=== PATIENT | female | born 1960 | race Caucasian/White ===

== ENCOUNTER 2021-12-22 10:30 | Day surgery (SDC) | payer OTHER, SELFPAY ==
[2021-12-22] VITALS (23 sets, daily range): BP systolic 86–151; BP diastolic 46–96; PULSE 60–89; RESP 16–22; TEMP 35.2–37.2; O2SAT 91–97; BMI 45.1
[2021-12-22] MEDS: LACTATED RINGERS 1000 ML 1,000 ML 100 ML IV (11:00)
[2021-12-22] MEDS: OXYCODONE (CR) 10 MG TAB.ER.12H PO (11:15)
[2021-12-22] MEDS: CELECOXIB 200 MG CAPSULE PO ×2 (11:15→21:14)
[2021-12-22] MEDS: ACETAMINOPHEN 500 MG TABLET 1000 MG PO ×3 (11:15→23:53)
[2021-12-22] MEDS: fentaNYL 100 MCG/2 ML inj IVP (11:45)
[2021-12-22] MEDS: MIDAZOLAM HCL 1 MG/ML inj IVP (11:45)
--- NOTE | 2021-12-22 11:47 | W.PM.NB ---
Nerve Block Nerve Block Time Seen by Provider: 11:48 Date Seen: 12/22/21 Type of block requested by surgeon for post-operative analgesia: adductor canal Side: left Time out performed: Yes Verification of patient name: Yes Verification of date of : Yes Site marking: site marked Name of person performing procedure: Getachew Continuous monitoring Was continuous monitoring of O2 sat, B/P, senior program analyst, recorded every 15 minutes?: Yes Procedure Checklist: sterile prep, needles and gloves Ultrasound guided. Images saved: Yes Medications given in 5ml increments after negative aspiration: Ropivicaine %: 0.5 mL: 20 Needle gauge: 20 Decadron (mg): 10 Precedex (mcg): 25 Patient tolerated procedure well: Yes Additional comments: Needle noted adjacent to nerve Block Charges Block Charge (with Pro Fee): Femoral Nerve Use of Ultrasound Machine for Block: Yes- US Guidance/pain block
--- NOTE | 2021-12-22 11:48 | P.NB_ITS ---
Nerve Block Nerve Block Time Seen by Provider: 11:48 Date Seen: 12/22/21 Type of block requested by surgeon for post-operative analgesia: geniculars Side: left Time out performed: Yes Verification of patient name: Yes Verification of date of : Yes Site marking: site marked Name of person performing procedure: Getachew Continuous monitoring Was continuous monitoring of O2 sat, B/P, court recording monitor, recorded every 15 minutes?: Yes Procedure Checklist: sterile prep, needles and gloves Medications given in 5ml increments after negative aspiration: Ropivicaine %: 0.5 mL: 9 Needle gauge: 25 Patient tolerated procedure well: Yes Block Charges Block Charge (with Pro Fee): Genicular Nerve Block Use of Ultrasound Machine for Block: No
--- NOTE | 2021-12-22 11:50 | SUR.PREOP ---
TIME?OUT:?1142 PT/RN/MDA?VERIFICATION?OF?SURGICAL?SITE,?PROCEDURE,?AND?CONSENT OBTAINED?PRIOR?TO?INVASIVE?PROCEDURE.
[2021-12-22] MEDS: CEFAZOLIN 2 GM INJ IVP (12:10)
[2021-12-22] MEDS: TRANEXAMIC ACID 100 MG/ML INJ 1000 MG IV (12:15)
--- NOTE | 2021-12-22 13:46 | CRLHL7_ITS ---
For Patients: As a result of the Cures Act, medical imaging exams and procedure reports are released immediately into your electronic medical record. You may view this report before your referring provider. If you have questions, please contact your health care provider. Indication: Postop Technique: Two views left Findings/Impression: Hardware from a left total knee arthroplasty is in satisfactory position. Bone alignment is normal. No sign of acute fracture. Postop changes are within normal limits. Dictated by Jovani Brown MD @ 12/22/2021 3:41:17 PM (Electronically Signed)
--- NOTE | 2021-12-22 13:47 | PM.ORPRC ---
Procedure Note Date of procedure: 12/22/21 Procedure: SURGEON: Gelacio Gaines MD CAREER AGENT: ALLYSON Skelton PREOPERATIVE DIAGNOSIS: Left knee osteoarthritis, subchondral cyst in the tibia POSTOPERATIVE DIAGNOSIS: Left knee osteoarthritis, subchondral cyst in the tibia NAME OF OPERATION: Left total knee arthroplasty, tibial cyst curettage and bone grafting ANESTHESIA: Spinal ESTIMATED BLOOD LOSS: 0 mL COMPLICATIONS: None SPECIMENS: None DRAINS: None PREOPERATIVE ANTIBIOTICS: Ancef 3 grams IMPLANTS: 1. J&J Attune # 7 posterior stabilized femur 2. # 5 fixed-bearing tibia 3. # 7 posterior stabilized, 5 mm fixed-bearing polyethylene 4. 38 patella INDICATIONS: The patient is a 61-year-old female with a longstanding history of severe, unrelenting left knee pain secondary to end-stage (grade IV) left knee osteoarthritis. Despite appropriate nonoperative management, including activity modification, anti-inflammatories, [id number] pain medication, bracing, physical therapy, and injections they continue to have pain and disability. Operative intervention was offered. The risks, benefits and expected outcomes were discussed in detail. These included but were not limited to: Infection, bleeding, injury to blood vessel or nerve, venous thromboembolism. All questions were answered to their satisfaction. Use of an audiology assistant was necessary throughout the case for patient positioning and safety, soft tissue retraction, and closure. A modifier 22 should be added to this case. The patient's weight of 127 kg with a BMI of 45.2 kg/meter squared and a layer of adipose over the extensor mechanism measuring 50 mm in thickness all added significant time to the dissection and exposure. Additionally, the cyst in the tibia required curettage and bone grafting. These factors more than doubled the time typically required to complete the case. PROCEDURE: Spinal anesthesia was administered. The patient was placed supine on the operating table. The audiology assistant made sure the patient was positioned appropriately. The lower extremity was prepped and draped in the usual sterile fashion. The limb was exsanguinated with the Arron bandage. The pneumatic tourniquet was inflated to 300 mmHg. A standard anterior incision was made with the knee in flexion. Subcutaneous dissection was sharply taken through fascial layer #1. Full-thickness medial and lateral flaps were elevated. The audiology assistant retracted the soft tissues and protected them throughout the case. A standard medial parapatellar approach was made. The patella was everted. The infrapatellar fat pad was preserved. The menisci and cruciate ligaments were sharply d?brided. Marginal osteophytes were d?brided with the rongeur. The drill was used to penetrate the femoral canal. The canal was aspirated and irrigated with pulse lavage. The intramedullary femoral guide was placed for a 5-degree valgus cut, removing 12 mm off the distal femur. The saw was used to make the cut. Whitesides line and the trans epicondylar axis were marked. The femoral sizing guide was pinned onto the distal femur. Three degrees of external rotation nicely parallels the transepicondylar axis. Pins were placed for posterior referencing. The four-in-one cutting guide was pinned onto the distal femur. The anterior, posterior, and chamfer cuts were made. The audiology assistant protected the collateral ligaments. The box cutting guide was pinned. The box cuts were made. The boxed trial was placed and was an excellent fit. Drill holes for the lugs were made. Attention was then turned to the proximal tibia. The extramedullary tibial guide was placed for a neutral varus/valgus cut with 5 degrees of posterior slope, removing 2 mm based off the medial tibial surface. The audiology assistant protected the collateral ligaments and the neurovascular bundle. The saw was used to make the cut. The subchondral cyst in the tibia was just posterior to midline. It was apparent that the drill was going to debride most of cyst. Trial components were placed. The knee was tight laterally. Therefore, we subperiosteally released the anterior portion of the FCL and popliteus with electrocautery. Trial components were again placed. Now the knee was nicely balanced in both flexion and extension. The trial components were removed. The tray was placed in appropriate rotation, parallel to our tibial cutting pins. It was pinned by the audiology assistant and the drill and the punch were used. The tray was removed. The punch was used again. As predicted, this debrided most of the subchondral cyst in the tibia. However, there was still some cyst remaining. We debrided the cyst with a curette and rongeur. It was well contained and did not penetrate the posterior cortex of the tibia. We used cancellous autograft and allograft to fill the void of the cyst. We placed a bone plug in the femoral canal. Attention was then turned to the patella. [place] patellar thickness was 19 mm. The lobster claw resection guide did not fit the patella well. It was apparent that we were going to resect too much of the patella. Therefore, we elected to proceed with a freehand cut. Penetrating towel clips were used to irineo and stabilize patella. The saw was used freehand, to make the cut. This left 14 mm of patella. Drill holes were made by the audiology assistant. The trial was placed and was an excellent fit, nicely restoring [place] patellar thickness at 24 mm. Cancellous surfaces were irrigated with pulse lavage and thoroughly dried by the audiology assistant. We cemented the tibial component, then the femoral component. A trial spacer was placed. The knee was brought into full extension. We then cemented the patellar component. Excessive cement was removed. The cement was allowed to harden. We impacted the 5 mm polyethylene onto the tibial tray. The knee was taken through a range of motion and was found to be nicely balanced in both flexion and extension. The patella tracks centrally. The audiology assistant did a three minute dilute Betadine solution soak. The audiology assistant irrigated the wound with 3 liters of normal saline via pulse lavage. The audiology assistant reapproximated the extensor mechanism with #1 Vicryl in an interrupted [id number] fashion. The audiology assistant then ran the extensor mechanism with a #1 PDO Stratafix. The audiology assistant closed the subcutaneous tissues with a 3-0 Stratafix and the skin with a running 3-0 Stratafix in a subcuticular fashion. Glue was used to seal the skin. The audiology assistant placed a dry dressing, RAJANI stocking, and Polar Care. Sponge and needle counts were correct x2. The patient tolerated the procedure well. There were no apparent complications. They were carefully transferred to the hospital bed and taken to the postanesthesia care unit in satisfactory condition. PLAN: The patient will be mobilized with physical therapy. Aspirin will be used for DVT prophylaxis. They will be discharged to home once medically appropriate.
--- NOTE | 2021-12-22 14:00 | W.ANESCHARGE ---
Anesthesia Charges Start Date/Time Anesthesia Start Date: 12/22/21 Anesthesia Start Time: 11:56 Stop Date/Time Anesthesia Stop Date: 12/22/21 Anesthesia Stop Time: 14:25 Summary Emergency: No
--- NOTE | 2021-12-22 14:24 | W.ANESCHARGE ---
Anesthesia Charges Start Date/Time Anesthesia Start Date: 12/22/21 Anesthesia Start Time: 11:56 Stop Date/Time Anesthesia Stop Date: 12/22/21 Anesthesia Stop Time: 14:25 Summary Emergency: No
[2021-12-22] MEDS: HYDROmorphone 0.5 mg/0.5 ml inj IVP ×2 (15:48→16:49)
[2021-12-22] MEDS: LACTATED RINGERS 1000 ML 1,000 ML 75 ML IV ×2 (16:09→23:53)
--- NOTE | 2021-12-22 17:51 | PC.NURSE ---
Shift Summary: Patient arrived from PACU @ 1500. vitals stable and WNL, o2 sats >90% on RA. Has been up to bathroom x1 with two assist, walker and gait belt, voided 100cc. Incision over left knee dry and intact, whole leg appears swollen. Pain controlled with PRN medication and cryocuff. Tolerating regular diet, denies nausea.
[2021-12-22] MEDS: OXYCODONE 5 MG TABLET PO ×2 (17:57→21:15)
[2021-12-22] MEDS: CEFAZOLIN 3 GM in 0.9 % SODIUM CHLORIDE 100 ml 100 ML IVPB (18:18)
--- NOTE | 2021-12-22 19:06 | PM.IMCN1 ---
Date of Consult Patient: [place] Patient Consult date: 12/22/21 Requesting Physician: Orthopedics Primary Care Provider: Nancy Nielsen MD Consult Narrative Reason for consult: Post operative management of medical conditions Narrative: Nani Farley is a 61 year old woman with end-stage left knee osteoarthritis who presents for elective left total knee arthroplasty today. This is undertaken successfully. No immediate postoperative complications. Review of Systems Status of ROS: Reports: 10 or more systems reviewed and unremarkable except as noted in History and below Narrative: Denies chest heaviness, pressure, tightness, or pain. Denies dyspnea at rest, paroxysmal nocturnal dyspnea, orthopnea. States she has asthma but uses rescue inhaler, albuterol, 1-2 times per month at most. Not on chronic medicines to treat asthma. Still actively smokes 1 pack of cigarettes per day. She informs me that she recently started not smoking when driving her car. She tells me she is making baby steps toward decreasing her smoking with noncommittal goal of eventually stopping. Acknowledges chronic cough, nonproductive. Denies hemoptysis. Denies fevers, rigors, diaphoresis. Denies syncope or near-syncope. Denies palpitations or fluttering. Denies nausea or vomiting. Avoid spicy foods to avoid dyspepsia. Denies dysphagia or odynophagia. No diarrhea or constipation. No blood loss of any sort. No recent trauma or injury. No recent travel. Left knee pain has become increasingly problematic. Prior to her surgery today she could only walk in a grocery store if she used a cart to hold onto. Otherwise does not use a ambulatory device. Failed non operative management efforts for her knee pain. Had previous right total hip arthroplasty and did well with that. No complications from that prior surgery. [facility] Medical History (Updated 12/22/21 @ 19:27 by Warren Chaney MD) Angioedema Asthma Cervical cancer (~1992) Hyperlipidemia Hypertension Hypertension affecting Obesity, morbid, BMI 40.0-49.9 Osteoarthritis of knees, bilateral Tobacco abuse Surgical History Status post right hip replacement (12/22/20) Family History Brother Autoimmune disease Liver transplant recipient Mother History of heart artery stent Father History of open heart surgery Social History Narrative: Lives with fianc?. Designates fianc? as POA for health should that be required. Desires full resuscitation in event of cardiopulmonary demise, but does not want to be kept alive as a vegetable. What is your current living situation: I presently have a place to live Smoking Status: Current every day smoker What tobacco products do you use: cigarettes Smoking packs per day: 1 Smoking cigarettes per day: 20.0 Years smoked: 40 Smoking pack-years: 40.00 Do you use any of these nicotine containing products: None Second hand tobacco smoke exposure: No How often do you have a drink containing alcohol: 2-3 times a week Alcohol type: beer How many standard drinks containing alcohol do you have on a typical day: 3 or 4 How often do you have six or more drinks on one occasion: Never AUDIT-C Alcohol total score: 4 Non-prescribed substance use: denies use Caffeine: Yes (coffee, 2 cups/am) Meds Home Medications and Allergies Home Medications Medication Instructions Recorded Confirmed Type albuterol sulfate 90 mcg/actuation 2 puff inhalation Q4H PRN 11/03/21 12/21/21 History aerosol inhaler amlodipine 10 mg tablet 10 mg PO QPM 11/03/21 12/22/21 History amoxicillin 500 mg capsule 2,000 mg PO ONCE 11/03/21 12/21/21 History glucosamine-chondroitin 500 mg-400 1 cap PO BID 11/03/21 12/21/21 History mg capsule hydrochlorothiazide 25 mg tablet 25 mg PO QPM 11/03/21 12/22/21 History omeprazole 20 mg capsule,delayed 20 mg PO QPM 11/03/21 12/22/21 History release simvastatin 20 mg tablet 20 mg PO QPM 11/03/21 12/22/21 History losartan 50 mg tablet 50 mg PO QDAY 11/04/21 12/22/21 History Allergies Allergy/AdvReac Type Severity Reaction Status Date / Time lisinopril Allergy Intermediate Lip Verified 11/04/21 10:57 swelling metoprolol AdvReac Verified 12/21/21 09:29 Exam Narrative: Exam Narrative: Appears comfortable. No acute distress. Smells strongly of tobacco smoke. Friendly, articulate, cooperative. Mood and affect are congruent. Morbidly obese. Full neck. Neck is supple. Midline trachea. No JVD or hepatojugular reflux. No carotid bruits. No lymphadenopathy. Lungs with end inspiratory wheezing. No rhonchi or rales. Chest wall excursions are full. Not using any accessory muscles of respiration with comfortable breathing. Heart tones with regular rhythm, normal S1-S2, no murmur, gallop, or rub. PMI not laterally displaced. Abdomen with active bowel sounds, soft, nontender. Extremities without edema. Capillary refill less than 3 seconds. Palpable pulses upper and lower extremities. Const: Vital Signs, click to edit/add: Vital Signs - 24 hr 12/22/21 11:06 12/22/21 11:50 12/22/21 14:19 Temperature 98.9 F 97.9 F Pulse Rate 73 64 72 Pulse Rate [Pulse Oximeter] Respiratory Rate 18 18 22 Blood Pressure 151/96 H 146/90 H 86/55 L Blood Pressure [Le ft Arm] Pulse Oximetry 95 95 92 Oxygen Delivery Il thod Room Air Nasal Cannula Room Air Oxygen Flow Rate 2 12/22/21 14:25 12/22/21 14:30 12/22/21 14:35 Temperature Pulse Rate 74 72 68 Pulse Rate [Pulse Oximeter] Respiratory Rate 20 22 22 Blood Pressure 91/66 105/51 L 96/46 L Blood Pressure [Le ft Arm] Pulse Oximetry 94 92 92 Oxygen Delivery Il thod Room Air Room Air Room Air Oxygen Flow Rate 12/22/21 14:40 12/22/21 14:44 12/22/21 14:53 Temperature Pulse Rate 70 67 68 Pulse Rate [Pulse Oximeter] Respiratory Rate 20 20 20 Blood Pressure 92/61 105/82 94/66 Blood Pressure [Le ft Arm] Pulse Oximetry 92 94 92 Oxygen Delivery Me thod Room Air Room Air Room Air Oxygen Flow Rate 12/22/21 15:00 12/22/21 15:15 12/22/21 15:30 Temperature 95.8 F L 95.4 F L 95.7 F L Pulse Rate 62 Pulse Rate [Pulse Oximeter] 72 89 Respiratory Rate 18 18 20 Blood Pressure Blood Pressure [Le ft Arm] 108/72 90/69 113/79 Pulse Oximetry 95 95 Oxygen Delivery Me thod Room Air Room Air Room Air Oxygen Flow Rate 12/22/21 15:45 12/22/21 16:00 12/22/21 16:30 Temperature 95.6 F L 96.9 F L 96.9 F L Pulse Rate Pulse Rate [Pulse Oximeter] 84 71 74 Respiratory Rate 20 18 18 Blood Pressure Blood Pressure [Le ft Arm] 115/67 131/85 118/82 Pulse Oximetry 95 94 94 Oxygen Delivery Me thod Room Air Room Air Room Air Oxygen Flow Rate 12/22/21 17:00 12/22/21 18:00 Temperature 96.7 F L 96.6 F L Pulse Rate Pulse Rate [Pulse Oximeter] 63 66 Respiratory Rate 18 18 Blood Pressure Blood Pressure [Le ft Arm] 126/88 120/83 Pulse Oximetry 95 95 Oxygen Delivery Me thod Room Air Room Air Oxygen Flow Rate Documenting provider has reviewed patient's vital signs: yes Assessment and Plan Assessment and plan (1) Osteoarthritis of knees, bilateral: Status: Acute (2) Status post total left knee replacement: Problem comment: 12/22/2021 Status: Acute (3) Asthma: Problem comment: PRN rescue-haler only 12/22/2021 Status: Acute (4) Tobacco abuse: Problem comment: 1 PPD for over 40 years. Contemplative about quitting 12/22/2021. Status: Acute (5) Obesity, morbid, BMI 40.0-49.9: Problem comment: BMI 45 on 12/11/2021. High risk for obstructive sleep apnea. Status: Acute (6) Hypertension: Status: Acute (7) Hyperlipidemia: Status: Acute Plan 1. Reviewed impression with patient. 2. Answered patient's questions. 3. Will follow with Orthopedic surgery while in hospital. 4. Will hold some of her antihypertensive medications while in hospital only. 5. Continue with p.r.n. albuterol inhaler. Will add p.r.n. albuterol nebulizer while in hospital. 6. Patient declines nicotine patch. She is agreeable to nicotine inhaler p.r.n. while in hospital. Patient not ready to contemplate totally quitting at this time. We did discuss this. 7. Agree with perioperative antibiotic prophylaxis. 8. Agree with postoperative venous thromboembolism prophylaxis. 9. Patient at high risk for obstructive sleep apnea. Will make oxygen available as needed. 10. Patient agreeable to above stated plans and recommendations.
[2021-12-22] MEDS: SENNOSIDES 1 TAB TABLET 2 TAB PO (21:14)
[2021-12-22] MEDS: ASPIRIN 81 MG TABLET EC PO (21:14)
[2021-12-22] MEDS: LORazepam 0.5 MG TABLET PO (21:14)
[2021-12-23] MEDS: OXYCODONE 5 MG TABLET PO ×2 (02:24→08:54)
[2021-12-23] MEDS: CEFAZOLIN 3 GM in 0.9 % SODIUM CHLORIDE 100 ml 100 ML IVPB ×2 (02:25→10:18)
[2021-12-23 03:00] VITALS: BP 142/82; PULSE 65; RESP 16; TEMP 35.9; O2SAT 95
--- NOTE | 2021-12-23 05:38 | NUTR.NU ---
Shift Note -: Pt pleasant and cooperative, VSS with the exception of last BP being elevated. BS hypoactive, LS clear, occasional wheezes notes, Pt is a smoker and has declined nicotine supplementation. Pt sates pain is well controlled on 5mg Oxycodone, scheduled Tylenol and Celebrex, see eMAR for medication administration. Urinary output satisfactory, PIV is now SL. Cryocuff filled and applied to left knee. Pt up with SBA, walker and JULIA.
[2021-12-23] MEDS: ACETAMINOPHEN 500 MG TABLET 1000 MG PO (06:20)
[2021-12-23 07:00] VITALS: BP 102/56; PULSE 62; RESP 16; TEMP 36.1; O2SAT 92
[2021-12-23 07:00] LABS: Hematocrit 37.2 % (33.0-51.0); Hemoglobin* 12.6 gm/dL (12.0-16.0); Immature Granulocytes Abs Auto 0.03 K/uL (0.00-0.30); Lymphocytes Percent Auto 6.5 % (20-44); Mean Corpuscular HGB Conc 34 gm/dL (32-36); Mean Corpuscular Hemoglobin 32 pg (26-34); Mean Corpuscular Volume 93 fL (80-100); Monocytes Percent Auto 5.5 % (0.0-11.0); Neutrophils Percent Auto 87.8 % (42.0-72.0); Platelet Count* 192 K/uL (140-440); RDW Coefficient of Variation % 12.2 % (11.5-15.5); Red Blood Count 3.99 m/uL (4.00-5.20); White Blood Count* 13.51 K/uL (4.50-11.00)
[2021-12-23 07:12] LABS: Slide Review Reflex No
[2021-12-23 07:21] LABS: Potassium* 3.9 mmol/L (3.6-5.1); Sodium* 134 mmol/L (135-149)
[2021-12-23 07:24] LABS: Blood Urea Nitrogen* 12 mg/dL (7-30); Creatinine* 0.5 mg/dL (0.5-1.5); Est. Creatinine Clearance* 53.91; Estimated Glomerular Filt Rate 105 ml/min
[2021-12-23 07:46] LABS: Prothrombin Time 14.6 Seconds
[2021-12-23] MEDS: ASPIRIN 81 MG TABLET EC PO (08:54)
[2021-12-23] MEDS: CELECOXIB 200 MG CAPSULE PO (08:54)
[2021-12-23] MEDS: SENNOSIDES 1 TAB TABLET 2 TAB PO (08:54)
--- NOTE | 2021-12-23 09:10 | PM.ORPN ---
Subjective Subjective Time Seen by Provider: 07:30 Date Seen: 12/23/21 Principal diagnosis: Left total knee replacement Interval history: Nani is comfortable at rest this morning. She will discharge to home today. Ortho Exam Narrative Exam Narrative: Alert and oriented x3. Patient is in no acute distress. Converses without labored breathing. Hearing is grossly intact. Ambulates with a walker. Examination of the left knee shows the dressing is intact. Minimal to no soft tissue edema about the left knee. Intact. No erythema or warmth or sign of infection. Bilateral calves are soft and nontender. CMS intact left lower extremity. Const Vital Signs, click to edit/add: Vital Signs - 24 hr 12/22/21 11:06 12/22/21 11:50 12/22/21 14:19 Temperature 98.9 F 97.9 F Pulse Rate 73 64 72 Pulse Rate [Pulse Oximeter] Respiratory Rate 18 18 22 Blood Pressure 151/96 H 146/90 H 86/55 L Blood Pressure [Left Arm] Pulse Oximetry 95 95 92 Oxygen Delivery Method Room Air Nasal Cannula Room Air Oxygen Flow Rate 2 12/22/21 14:25 12/22/21 14:30 12/22/21 14:35 Temperature Pulse Rate 74 72 68 Pulse Rate [Pulse Oximeter] Respiratory Rate 20 22 22 Blood Pressure 91/66 105/51 L 96/46 L Blood Pressure [Left Arm] Pulse Oximetry 94 92 92 Oxygen Delivery Method Room Air Room Air Room Air Oxygen Flow Rate 12/22/21 14:40 12/22/21 14:44 12/22/21 14:53 Temperature Pulse Rate 70 67 68 Pulse Rate [Pulse Oximeter] Respiratory Rate 20 20 20 Blood Pressure 92/61 105/82 94/66 Blood Pressure [Left Arm] Pulse Oximetry 92 94 92 Oxygen Delivery Method Room Air Room Air Room Air Oxygen Flow Rate 12/22/21 15:00 12/22/21 15:15 12/22/21 15:30 Temperature 95.8 F L 95.4 F L 95.7 F L Pulse Rate 62 Pulse Rate [Pulse Oximeter] 72 89 Respiratory Rate 18 18 20 Blood Pressure Blood Pressure [Left Arm] 108/72 90/69 113/79 Pulse Oximetry 95 95 Oxygen Delivery Method Room Air Room Air Room Air Oxygen Flow Rate 12/22/21 15:45 12/22/21 16:00 12/22/21 16:30 Temperature 95.6 F L 96.9 F L 96.9 F L Pulse Rate Pulse Rate [Pulse Oximeter] 84 71 74 Respiratory Rate 20 18 18 Blood Pressure Blood Pressure [Left Arm] 115/67 131/85 118/82 Pulse Oximetry 95 94 94 Oxygen Delivery Method Room Air Room Air Room Air Oxygen Flow Rate 12/22/21 17:00 12/22/21 18:00 12/22/21 19:00 Temperature 96.7 F L 96.6 F L 96.3 F L Pulse Rate Pulse Rate [Pulse Oximeter] 63 66 64 Respiratory Rate 18 18 18 Blood Pressure Blood Pressure [Left Arm] 126/88 120/83 98/80 Pulse Oximetry 95 95 93 Oxygen Delivery Method Room Air Room Air Room Air Oxygen Flow Rate 0 12/22/21 19:00 12/22/21 20:02 12/22/21 19:30 Temperature 96.3 F L 96.3 F L Pulse Rate Pulse Rate [Pulse Oximeter] 64 60 Respiratory Rate 18 18 Blood Pressure Blood Pressure [Left Arm] 98/80 130/86 Pulse Oximetry 93 91 96 Oxygen Delivery Method Room Air Room Air Room Air Oxygen Flow Rate 0 12/22/21 21:00 12/22/21 22:03 12/22/21 23:00 Temperature 96.6 F L 97.6 F Pulse Rate Pulse Rate [Pulse Oximeter] 80 80 Respiratory Rate 16 16 Blood Pressure Blood Pressure [Left Arm] 130/86 125/78 Pulse Oximetry 97 97 97 Oxygen Delivery Method Room Air Room Air Room Air Oxygen Flow Rate 0 12/23/21 03:00 12/23/21 07:00 12/23/21 07:00 Temperature 96.6 F L 97.0 F L Pulse Rate Pulse Rate [Pulse Oximeter] 65 62 Respiratory Rate 16 16 16 Blood Pressure Blood Pressure [Left Arm] 142/82 H 102/56 L Pulse Oximetry 95 92 92 Oxygen Delivery Method Room Air Room Air Room Air Oxygen Flow Rate 0 0 Assessment and Plan Assessment and plan (1) Osteoarthritis of knees, bilateral: Status: Acute (2) Status post total left knee replacement: Problem details: 12/22/2021 Status: Acute Assessment and Plan: Plan for discharge is today to home if they meet discharge criteria. DVT prophylaxis includes Xarelto 10 mg daily x1 month, Isaac stockings x1 month may remove for 1 hr per day, frequent ambulation. Due to smoking she will be on Xarelto for 1 month. She tolerated Xarelto well after her hip replacement recently. Remove dressing in 1 week. Observe wound and phone Orthopedics with any questions or concerns Return to clinic in 1 week for a wound check Return to clinic in [address] Gaines Minimize narcotic use. Wean off and discontinue soon as possible. Activities as tolerated. No strenuous activity. Outpatient physical therapy as scheduled. Ice and elevate the operative extremity. No restriction on ice. (3) Asthma: Problem details: PRN rescue-haler only 12/22/2021 Status: Acute (4) Tobacco abuse: Problem details: 1 PPD for over 40 years. Contemplative about quitting 12/22/2021. Status: Acute (5) Obesity, morbid, BMI 40.0-49.9: Problem details: BMI 45 on 12/11/2021. High risk for obstructive sleep apnea. Status: Acute (6) Hypertension: Status: Acute (7) Hyperlipidemia: Status: Acute
--- NOTE | 2021-12-23 09:55 | RESP.RT ---
Pt seen this AM Visited about her asthma, she uses rescue inhaler rarely. She does continue to smoke. Discussed smoking cessation strategies. She is not ready to quit at this time, however she is interested in cutting back. Gave her positive reinforcement on some things she has already done, and what to expect. She became teary and overwhelmed. At some point she would benefit from a sleep study, and PFTs to classify her Asthma.
[2021-12-23 12:24] VITALS: BP 94/66; PULSE 62; RESP 16; TEMP 36.1
--- NOTE | 2021-12-23 12:27 | PC.NURSE ---
SHIFT REPORT: PATIENT DISCHARGED TO HOME WITH SIGNIFICANT OTHER, UP SBA WITH WALKER AND BELT TOLERATING WELL, RATING PAIN IN LEFT KNEE 1/10 AT REST BEING MANAGED WITH PRN OXYCODONE AND SCHEDULED TYLENOL, DRESSING TO LEFT KNEE CDI, TOLERATING REGULAR DIET, PATIENT DISCHARGED TO HOME AROUND 1220, PATIENT AND SIGNIFICANT OTHER VERBALIZED UNDERSTANDING OF DISCHARGE INFORMATION AND HAD NO FURTHER QUESTIONS AT THIS TIME.
== END 2021-12-23 12:20 | disposition home or self-care (01) ==
LOC: OR 13:11 → MEDSURG 15:34
PROVIDERS: PCP Family Medicine; Visit Provider Orthopaedic Surgery
PROC: (CPT 27447; principal; 2021-12-22 12:30)
DX: M17.12 Unilateral primary osteoarthritis, left knee (principal); M85.662 Other cyst of bone, left lower leg; J45.909 Unspecified asthma, uncomplicated; E66.01 Morbid (severe) obesity due to excess calories; I10 Essential (primary) hypertension; E78.5 Hyperlipidemia, unspecified; F17.210 Nicotine dependence, cigarettes, uncomplicated; Z68.42 Body mass index [BMI] 45.0-49.9, adult
CPT/HCPCS: 27447; 27637; 01402; 36415; 64447; 64454; 73560; 76942; 82565; 84132; 84295; 84520; 85025; 85610; 97110; 97116; 97161; 97165; A9270; C1776; J0690; J1100; J1170; J2250; J2405; J2704; J2795; J3010; J7120

== ENCOUNTER 2022-02-16 11:15 | Outpatient (RCR) | payer OTHER, SELFPAY | END 2022-05-07 11:13 | disposition home or self-care (01) | PROVIDERS: PCP Family Medicine; Visit Provider Orthopaedic Surgery | DX: M17.0 Bilateral primary osteoarthritis of knee (principal); Z51.89 Encounter for other specified aftercare | CPT/HCPCS: 97110; 97140; 97161; 97164 ==

== ENCOUNTER 2024-09-06 13:37 | Emergency (ER) | payer MEDICARE, BC, SELFPAY ==
--- OUTSIDE RECORDS SUMMARY | 2024-09-06 13:40 | XMS_ITS | Clinical Summary ---
Author Organization [facility] Address [address] [place] [id number] Care Team Providers Care Grants Specialist Name Role Phone Nancy Nielsen MD Primary Care Provider Allergies Active Allergy Reactions Criticality Noted Date Comments Lisinopril Angioedema 09/30/2020 Metoprolol Other - Describe In Comment Field Weight gain Medications triamcinolone 0.025% (ARISTOCORT) 0.025 % ointment ONE APPLICATION TOPICALLY EVERY DAY FOR 14 DAYS. PLEASE APPLY TO CHEST, BACK, LEFT LOWER LEG EVERY DAY FOR UP TO TWO WEEKS. DISCONTINUE USE 12/05/19 22 Active amoxicillin (AMOXIL) 500 mg capsule TAKE 4 CAPSULES BY MOUTH ONE HOUR PRIOR TO DENTAL APPOINTMENT 04/22/19 22 Active albuterol HFA (PRO-AIR; VENTOLIN; PROVENTIL) 90 mcg/actuation inhalerIndications :Upper respiratory tract infection, unspecified type Inhale 2 Puffs by mouth every 4 hours if needed for Shortness of Breath 1st choice or Wheezing 1st choice. 1 Each 09/19/19 24 Active omeprazole (PRILOSEC) 20 mg Delayed-Release capsuleIndications :Chronic GERD Take 1 Capsule (20 mg) by mouth once daily before a meal. 90 Capsule 3 09/19/19 24 Active varenicline (CHANTIX DOSEPAK) 0.5 mg (11)- 1 mg (42) tabletIndications: Personal history of nicotine dependence Days 1-3 take 0.5mg once daily; Days 4-7 take 0.5mg twice daily; then increase to 1mg twice daily. Take with meals. 1 Packet 09/19/19 Active varenicline (CHANTIX) 1 mg tabletIndications: Personal history of nicotine dependence Take 1 mg by mouth two times daily with meals. 112 Tablet 3 09/19/19 Active amLODIPine 5 mg tabletIndications: Hypertension, unspecified type Take 1 Tablet (5 mg) by mouth once daily. 30 Tablet 3 09/04/19 25 Active hydroCHLOROthiazid e 25 mg tabletIndications: Hypertension, unspecified type Take 1 Tablet (25 mg) by mouth once daily. 30 Tablet 3 09/04/19 25 Active losartan 50 mg tabletIndications: Hypertension, unspecified type Take 1 Tablet (50 mg) by mouth once daily. 30 Tablet 3 09/04/19 25 Active simvastatin 20 mg tabletIndications: Hyperlipidemia, unspecified hyperlipidemia type Take 1 Tablet (20 mg) by mouth at bedtime. 30 Tablet 3 09/04/19 25 Active amLODIPine (NORVASC) 5 mg tabletIndications: Hypertension, unspecified type Take 1 Tablet (5 mg) by mouth once daily. 90 Tablet 3 09/19/19 24 025 Discontin ued(Reord er (E-cancel not sent)) hydroCHLOROthiazid e 25 mg tabletIndications: Hypertension, unspecified type Take 1 Tablet (25 mg) by mouth once daily. 90 Tablet 3 09/19/19 24 025 Discontin ued(Reord er (E-cancel not sent)) losartan (COZAAR) 50 mg tabletIndications: Hypertension, unspecified type Take 1 Tablet (50 mg) by mouth once daily. 90 Tablet 3 09/19/19 24 025 Discontin ued(Reord er (E-cancel not sent)) simvastatin (ZOCOR) 20 mg tabletIndications: Hyperlipidemia, unspecified hyperlipidemia type Take 1 Tablet (20 mg) by mouth at bedtime. 90 Tablet 3 09/19/19 24 025 Discontin ued(Reord er (E-cancel not sent)) Active Problems Problem Noted Date Diagnosed Date Lung nodules 09/20/2023 Overview (09/30/2023): 09/20/23- RAD 4A with scattered linear opacities. There is one area that is 9mm in the EPHRAIM. These may be related to fibrosis. [facility]. Obesity, morbid 09/19/2023 Angioedema 01/16/2021 Status post right hip replacement 01/16/2021 Routine adult health maintenance 11/28/2015 Overview (11/28/2015): Colonoscopy 11/2015 hyperplastic polyps repeat in 10 years Hypertension 10/13/2010 Hyperlipidemia 10/13/2010 Tobacco abuse 10/13/2010 Encounters Date Type Department Care Team Description 09/03/2024 Telephone [facility] [address] [place] [address] Nancy Nielsen MD Questions 08/15/2024 Telephone [facility] [address] [place] [id number] Jana Flores MD Results 08/13/2024 11:30 AM CDT Ancillary Procedure [facility] [address] [place] [address] 08/13/2024 Travel 08/08/2024 Travel 06/18/2024 Telephone [facility] [address] [facility] [place] [address] [place] [id number] [facility] Cancer Appointment from Last 3 Months Immunizations Immunization Administration Dates Next Due AMB Influenza, IIV3 (Age >=3 years)(Flu Clinic Only) 01/07/2011,01/16/2010 COVID-19 vaccine (Pfizer-Bio NTech 30mcg/0.3mL) 12YO+ BIVALENT PF, MDV 12/11/2021 COVID-19 vaccine (Pfizer-Bio NTech 30mcg/0.3mL) 12YO+ JUANITO-SUCROSE PF, MDV 08/24/2021 COVID-19 vaccine (Pfizer-Bio NTech 30mcg/0.3mL) PF, MDV 01/16/2021,06/19/2020,05/29/2020 Influenza A (H1N1), Inactiva rosendo (Age >=3 Years) 03/28/2009 Influenza, IIV3 (Age >=3 years) 12/15/2012,12/28,02/21/2009 Influenza, IIV4 12/11/2021,,11/08/2019,2018,11/18/2017,12/12/2015,12/14/2013,0 03/28/2009 Influenza, IIV4 (=>6mos) MDV 12/09/2016 Pneumococcal Conj 20-valent (Prevnar 20) 08/24/2021 Pneumococcal Poly,23-Valent (Pneumovax) 12/07/2019 Tdap 12/07/2019,11/05/2010 Zoster (Shingrix-RZV, recombinant) 03/05/2019, Family History Medical History Relation Name Comments Diabetes Brother borderline Heart Disease Father stenting Cancer-breast Maternal Aunt Heart Disease Mother stenting Anesthesia Malignant Hyperthermia No Family History Anesthesia Problem No Family History Cancer-ovarian No Family History Relation Name Status Comments Brother Father Maternal Aunt Mother Social History Tobacco Use Types Packs/Day Years Used Date Smoking Tobacco: Every Day Cigarettes 1 48.6 Started: 01/17/1976 Smokeless Tobacco: Never Tobacco Cessation:Ready to Q uit: No; Counseling Given: Not Answered Alcohol Use Standard Drinks/Week Comments Yes 0 (1 standard drink = 0.6 oz pure alcohol) two days week weekend can be excessive PHQ-2 Answer Date Recorded PHQ-2 TOTAL SCORE 0 09/19/2023 Social Connections Answer Date Recorded Do you often feel lonely or isolated from those around you? 0 09/19/2023 Financial Resource Strain Answer Date R ecorded Difficulty of Paying Living Expenses 3 09/19/2023 Difficulty of Paying Living Expenses Not on file 09/19/2023 Food Insecurity Answer Date Recorded Do you worry your food will run out before you are able to buy more? 1 09/19/2023 Transportation Needs Answer Date Record ed Does lack of transportation keep you from medica l appointments? 1 09/19/2023 Does lack of transportation keep you from work, meetings or getting things that you need? 1 09/19/2023 Housing Stability Answer Date Recorded What is your housing situation today? 1 09/19/2023 Utilities Answer Date Recorded Do you have trouble paying f or utilities (for example, heat, electricity, water, phone)? 1 09/19/2023 Comments No Sex and Gender Information Value Date Recorded Sex Assigned at Not on file Legal Sex Female 5:25 AM [employer] [facility] [employer] Gender Identity Not on file Sexual Orientation Not on file Obstetrics History Last Filed Vital Signs Vital Sign Reading Time Taken Comments Blood Pressure 165/90 10/05/2023 11:25 AM CDT Pulse 78 10/05/2023 11:25 AM CDT Temperature 36.4 C (97.5 F) 10/05/2023 11:25 AM CDT Respiratory Rate 16 10/05/2023 11:25 AM CDT Oxygen Saturation 95% 10/05/2023 11:25 AM CDT Inhaled Oxygen Concentration - - Weight 131.5 kg (290 lb) 10/05/2023 11:25 AM CDT Height 165.1 cm (5' 5) 10/05/2023 11:25 AM CDT Body Mass Index 48.26 10/05/2023 11:25 AM CDT Plan of Treatment Upcoming Encounters Date Type Department Care Team (Late st Contact Info) Description 10/02/2024 10:15 AM CDT Orders Only [facility] [address] [facility] [address] [facility] 10/03/2024 9:40 AM CDT Office Visit [facility] [address] [place] [address] Nancy Nielsen MD [address] [place] [address] Health Maintenance Due Date Last Done Comments RSV vaccine for adults or (1 - Risk 60-74 years 1-dose series) 2018 Medicare Wellness for age 65+ 2023 COVID-19 vaccine series (2023- season) 2023 12/11/2021, 08/24/2021, 01/16/2021, Additional history exists Depression screening for age 12+ 09/19/2024 09/20/2023, 09/19/2023, 10/08/2020, Additional history exists BMI (ht and wt on same day) for age 18+ 10/04/2024 10/05/2023, 09/20/2022, 12/11/2021, Additional history exists Influenza Vaccine (Season Ended) 2024 12/11/2021, 12/09/2020, 11/08/2019, Additional history exists Low Dose CT (for lung CA) age 50-80 01/24/2025 01/25/2024, 09/20/2023 Mammogram for age 45-75 05/01/2025 05/01/19, 04/27/2023, 04/05/2022, Additional history exists Colonoscopy through age 75 11/25/2025 11/26/2015, Lipids for age 45-75 09/12/2028 09/13/2023, 09/08/2022, 08/20/2021, Additional history exists Tetanus booster 12/06/2029 12/07/2019, 11/05/2010 Zoster (shingles) series for age 50+ Completed 03/05/2019, 11/16/2018 Hepatitis C screening for age 18-79 Completed 12/05/2019 Tdap Completed 12/07/2019, 11/05/2010 Pneumococcal series for age 50+ Completed 08/24/2021, 12/07/2019 DEXA/DXA scan for age 65+ Completed 09/20/2023 Hepatitis B series for 19+ Aged Out N o longer eligible based on patient's age to complete this topic Procedures Procedure Name Priority Date/Time Associated Diagnosis Comments CT CHEST LOW DOSE WO FOR LUNG RADS 0 OR 3 FOLLOW UP Routine 08/13/2024 11:29 AM CDT Pulmonary nodules XR MAMMO BILAT SCREENING Routine 05/01/2024 11:40 AM [employer] [facility] Visit for screening mammogram CT CHEST WO Routine 01/25/2024 11:30 AM [facility] [employer] Lung nodules XR DXA BONE DENSITY 2 SITES AXIAL Routine 09/20/2023 1:31 PM CDT Postmenopausal LIPID PANEL W REFLEX MEASURED LDL Routine 09/13/2023 8:08 AM CDT Hyperlipidemia, unspecified hyperlipidemia type ANTI HCV Routine 12/05/2019 9:13 AM CDT Need for hepatitis C screening test COLONOSCOPY 11/26/2015 8:54 AM CDT from Last 3 Months or Most Recently Relevant to Health Maintenance Results * CT CHEST LOW DOSE WO FOR LUNG RADS 0 OR 3 FOLLOW UP (08/13/2024 11:29 AM CDT) Anatomical Region Laterality Modality Computed Tomogra phy 08/15/2024 8:51 AM CDT Addenda Addendum by Agustín Patrick MD on 08/16/2024 8:03 AM CDT For Patients: As a result of the Cures Act, medical imaging exams and procedure reports are released immediately into your electronic medical record. You may view this report before your referring provider. If you have questions, please contact your health care provider. ADDENDUM ADDENDUM ADDENDUM Module completed. No change to report. CRL:jj Impressions 08/15/2024 8:51 AM CDT Stable scattered pulmonary scarring and 3 mm right upper lobe nodule. Lung-RADS CATEGORY 2: BENIGN APPEARANCE OR BEHAVIOR: Continue annual screening with LDCT in 12 months. Please note that all CT scans at this facility use dose modulation, iterative reconstruction, and/or weight-based dosing when appropriate to reduce radiation dose to as low as reasonably achievable. Dictated by Agustín Patrick MD @ 08/15/2024 8:51:02 AM (Electronically Signed) Narrative 08/15/2024 8:51 AM CDT For Patients: As a result of the Cures Act, medical imaging exams and procedure reports are released immediately into your electronic medical record. You may view this report before your referring provider. If you have questions, please contact your health care provider. INDICATION: Follow-up lung rads 3 finding TECHNIQUE: Low-dose CT chest without contrast. COMPARISON: 01/25/2024, 09/20/[address]s FINDINGS: Lungs and pleura: Areas of linear opacities scattered throughout both lungs with scarring and unchanged from prior studies. Mild bronchial wall thickening. Stable 3.5 mm right upper lobe pulmonary nodule image 38 series 5. No new nodules. Heart and vasculature: Heart size is normal. Thoracic aorta and pulmonary artery are normal in caliber.Coronary artery calcification. Lymph nodes/mediastinum: No mediastinal, hilar, or axillary adenopathy. Thyroid gland is normal. Chest wall: No masses. Limited upper abdomen: Normal. Bones: Unremarkable for age. Jana Flores MD CT Edited Result - Final * XR MAMMO BILAT SCREENING (05/01/2024 11:40 AM [facility]) Anatomical Region Laterality Modality BREASTS, Breast Left, Breast Right Bilateral Mammography Impressions 05/07/2024 3:21 PM [employer] There is no radiographic evidence for malignancy. Recommend annual mammograms. MAMMOGRAM ASSESSMENT: ACR 1 Negative PATIENTS: You will also receive a letter with your examination results in an easy to read format. If you have questions about your results, please contact your referring provider. Narrative 05/07/2024 3:21 PM [employer] For Patients: As a result of the Cures Act, medical imaging exams and procedure reports are released immediately into your electronic medical record. You may view this report before your referring provider. If you have questions, please contact your health care provider. XR MAMMO BILAT SCREENING [[id number]] CLINICAL HISTORY: This is an asymptomatic 63 y.o. patient. INDICATION FOR EXAM: Mammogram Screening. TECHNIQUE: CC & MLO views were obtained. This study was evaluated with the assistance of Computer-Aided Detection. COMPARISON FILM: Yes 04/27/23 [facility] 04/05/22 [facility] FINDINGS: The breasts are almost entirely fatty. There are no dominant masses, suspicious micro calcifications or areas of architectural distortion. us Nancy Nielsen MD MAMMO Final R esult * CT CHEST WO (01/25/2024 11:30 AM [employer]) Anatomical Region Laterality Modality CHEST, THORAX, HEART Computed To mography 01/25/2024 7:03 PM [employer] Impressions 01/25/2024 7:03 PM [employer] Stable reticular airspace opacities within both lungs, favored to represent fibrosis. No new or enlarging pulmonary nodules. Lung rads category 3, probably benign. Follow-up low-dose chest CT is recommended in 6 months. Please note that all CT scans at this facility use dose modulation, iterative reconstruction, and/or weight-based dosing when appropriate to reduce radiation dose to as low as reasonably achievable. Dictated by Rasheed Nichols MD @ 01/25/2024 7:03:44 PM (Electronically Signed) Narrative 01/25/2024 7:03 PM [employer] For Patients: As a result of the Cures Act, medical imaging exams and procedure reports are released immediately into your electronic medical record. You may view this report before your referring provider. If you have questions, please contact your health care provider. Indication Lung nodules. TECHNIQUE: Noncontrast CT images of the chest. COMPARISON: CT chest 09/20/2023. FINDINGS Bilateral curvilinear, reticular airspace opacities associated with architectural distortion not significantly changed, and favored to represent fibrosis. Stable 4 mm solid nodule right upper lobe (series 10 image 35). No new or enlarging pulmonary nodules. Mild diffuse bronchial wall thickening. No focal consolidation, pleural effusion, or pneumothorax. The heart size is normal. No pericardial effusion. Coronary artery atherosclerotic calcifications. No mediastinal or hilar lymphadenopathy. Diffuse hepatic steatosis. Cholelithiasis. Colonic diverticulosis. Multilevel thoracic spondylosis. No aggressive osseous lesions. Procedure Note Rasheed Nichols MD - 01/25/2024 For Patients: As a result of the Cures Act, medical imagingexams and procedure reports are released immediately into your electronicmedical record. You may view this report before your referring provider.If you have questions, please contact your health care provider. Indication Lung nodules. TECHNIQUE: Noncontrast CT images of the chest. COMPARISON: CT chest 09/20/2023. FINDINGS Bilateral curvilinear, reticular airspace opacities associated witharchitectural distortion not significantly changed, and favored torepresent fibrosis. Stable 4 mm solid nodule right upper lobe (series 10image 35). No new or enlarging pulmonary nodules. Mild diffuse bronchialwall thickening. No focal consolidation, pleural effusion, orpneumothorax. The heart size is normal. No pericardial effusion. Coronary arteryatherosclerotic calcifications. No mediastinal or hilar lymphadenopathy. Diffuse hepatic steatosis. Cholelithiasis. Colonic diverticulosis. Multilevel thoracic spondylosis. No aggressive osseous lesions. IMPRESSION: Stable reticular airspace opacities within both lungs, favored torepresent fibrosis. No new or enlarging pulmonary nodules. Lung radscategory 3, probably benign. Follow-up low-dose chest CT is recommended in6 months. Please note that all CT scans at this facility use dose modulation,iterative reconstruction, and/or weight-based dosing when appropriate toreduce radiation dose to as low as reasonably achievable. Dictated by Rasheed Nichols MD @ 01/25/2024 7:03:44 PM (Electronically Signed) us Jana Flores MD CT Final Result * (ABNORMAL) XR DXA BONE DENSITY 2 SITES AXIAL [80017.1] (09/20/2023 1:31 PM CDT) Anatomical Region Laterality Modality Spine, HIPS, HIPL, HIPR Other Impressions 09/27/2023 2:00 PM CDT Osteoporosis. RECOMMENDATIONS: The National Osteoporosis Foundation recommends pharmacologic treatment for patients with T-scores of -2.5 or less, patients with prior history of fragility fractures, or patients with 10-year probability of greater than 3% at hips or greater than 20% of suffering major osteoporotic fractures. Recommend continued optimization of calcium and vitamin D intake through dietary means and/or supplementation and regular exercise. Consider pharmacologic therapy for osteoporosis. Follow-up bone density reading in 2 years if therapy initiated to assess therapeutic efficacy. Dianne Fuentes PA-C [facility] 09/27/2023 Narrative 09/27/2023 2:00 PM CDT For Patients: Results are automatically released to your [facility] [employer] [facility] ([employer]) account once available, in compliance with federal regulations. This means that you may see your results before your provider has had a chance to review them. Please allow 2-3 business days for your provider to comment on the results. XR DXA Bone Mineral Density (BMD) EXAM LOCATION: [address] [address] PATIENT NAME: Nani Farley DATE OF : 1960 EXAM DATE: 09/20/2023 REQUESTING PROVIDER: Nancy Nielsen MD GENDER AT : female HEIGHT: 5' 6.5 (09/20/2022) WEIGHT: 292 lb (09/19/2023) MENOPAUSAL STATUS: Postmenopausal RACE/ETHNICITY: White RISK FACTORS: Family History of Osteoporosis, Menopause < Age 40, Smoking (current), Smoking (prior), and White Race CURRENT MEDICATION FOR BONE LOSS: NONE INDICATION: Post-Menopause COMPARISON DATE(S): None DXA scans are compared to prior studies for a patient only when the two (or more) studies were performed on the same scanner. It is not possible to compare data generated on one scanner to data from another because there are not standards in DXA equipment. This applies even if the two scanners are made by the same printer machine. PROCEDURE: Dual-energy x-ray absorptiometry performed with routine technique. Reporting is completed in the form of a T-score. The T-score represents the standard deviation from peak bone mass based on young healthy adult. A Z-score is used for diagnosis in premenopausal women, and for men under the age of 50. FINDINGS: RESULT LUMBAR SPINE L2-L4(L1) BMD: 1.000 g/cm2 T-Score: - 1.7 Z-Score: - 1.3 Change from prior: None RESULTS FEMUR Left femoral neck BMD: 0.664 g/cm2 T-Score: - 2.7 Z-Score: - 2.0 Change from prior: None Left hip BMD: 0.795 g/cm2 T-Score: - 1.7 Z-Score: - 1.3 Change from prior: None WHO criteria: Normal: T-score at or above -1 SD Osteopenia: T-score between -1.1 and -2.4 SD Osteoporosis: T-score at or below -2.5 SD us Nancy Nielsen MD DEXA Final R esult * LIPID PANEL W REFLEX MEASURED LDL (09/13/2023 8:08 AM CDT) [facility] CHOLESTEROL,TOTAL 191 100 - 199 mg/dL 09/13/2023 6:58 PM [facility] Comment: Cholesterol, Total Reference Ranges Desirable <200 mg/dL Borderline 200-239 mg/dL High >=240 mg/dL TRIGLYCERIDES 130 <150 mg/dL 09/13/2023 6:58 PM T [facility] HDL CHOLESTEROL 57 >40 mg/dL 6:58 PM CDT [facility] NON-HDL CHOLESTEROL 134 <145 mg/dl 09/13/2023 6:58 PM CDT [facility] CHOL/HDL RATIO 3.35 <4.50 09/13/2023 6:58 PM CDT [facility] LDL CHOLESTEROL 108 <=130 mg/dL 09/13/2023 6:58 PM CDT [facility] VLDL CHOLESTEROL 26 <=30 mg/dL 09/13/2023 6:58 PM CDT [facility] PROVIDER ORDERED STATUS RANDOM 09/13/2023 6:58 PM CDT [facility] Blood BLOOD SPECIMEN / Unknown Butterfly / Unknown 09/13/2023 8:08 AM CDT 09/13/2023 8:09 AM CDT us Nancy Nielsen MD CHEMISTRY Final R esult [facility] [address] [place] [address], [place] * ANTI HCV (12/05/2019 9:13 AM CDT) Pathologist [facility]PAT[facility] ANTIBODY Non-React noemi Non-React noemi 12/05/2019 6:11 PM CDT [facility] Comment:Antibodies to HCV no t detected; does not exclude the possibility of exposure to HCV. Blood BLOOD SPECIMEN / Unknown Butterfly / Unknown 12/05/2019 9:13 AM CDT 12/05/2019 9:13 AM CDT us Nancy Nielsen MD SEND OUTS Final R esult [facility] [address] [place] [address], [place] * COLONOSCOPY (11/26/2015 8:54 AM CDT) 11/26/2015 8:54 AM CDT Narrative 11/26/2015 8:54 AM CDT Patient Name: Nani Farley Procedure Date: 11/26/2015 Gender: Female Date of : 1960 Admit Type: Outpatient Procedure: Colonoscopy Proceduralist: Arron Brito MD Indications/Pre-Op Diagnosis: Screening for colorectal malignant neoplasm, This is the patient's first colonoscopy Medications: Fentanyl 100 micrograms IV, Midazolam 4 mg IV, The level of sedation administered was moderate Procedure Description: The patient had risks, benefits and alternatives explained to and gave informed consent. The patient had a stable cardiopulmonary status and judged an adequate candidate for conscious sedation. The [id number] was passed through the anus and advanced to the cecum, identified by appendiceal orifice and ileocecal valve. The colonoscopy was performed with moderate difficulty due to restricted mobility of the colon. Successful completion of the procedure was aided by withdrawing the scope and replacing with the pediatric colonoscope. The patient tolerated the procedure well. The quality of the bowel preparation was good. The ileocecal valve, appendiceal orifice, and rectum were photographed. Complications: No immediate complications. Estimated Blood Loss & Specimen: Estimated blood loss: none. Specimen collected - Yes and sent to Laboratory Findings: The perianal and digital rectal examinations were normal. Two sessile polyps were found in the rectum. The polyps were 3 mm in size. These polyps were removed with a cold snare. Resection and retrieval were complete. Multiple small-mouthed diverticula were found in the sigmoid colon. There was narrowing of the colon in association with the diverticular opening. There was no evidence of diverticular bleeding . The exam was otherwise without abnormality on direct and retroflexion views. Impressions/Post-Op Diagnosis: - Two 3 mm polyps in the rectum, removed with a cold snare. Resected and retrieved. - Moderate diverticulosis in the sigmoid colon. There was narrowing of the colon in association with the diverticular opening. There was no evidence of diverticular bleeding. - The examination was otherwise normal on direct and retroflexion views. Recommendation: - Patient has a contact number available for emergencies. The signs and symptoms of potential delayed complications were discussed with the patient. Return to normal activities tomorrow. Written discharge instructions were provided to the patient. - Resume previous diet. - Continue present medications. - Await pathology results. - Repeat colonoscopy is recommended. The colonoscopy date will be determined after pathology results from today's exam become available for review. Arron Brito MD 11/26/2015 10:19:18 AM This report has been signed electronically. Note Initiated On: 11/26/2015 8:54 AM Procedure Code(s): --- Professional --- 72372, Colonoscopy, flexible; with removal of tumor(s), polyp(s), or other lesion(s) by snare technique Diagnosis Code(s): --- Professional --- Z12.11, Encounter for screening for malignant neoplasm of colon K62.1, Rectal polyp K57.30, Diverticulosis of large intestine without perforation or abscess without bleeding CPT copyright 2015 [employer]. All rights reserved. The codes documented in this report are preliminary and upon certified medical records coder review may be revised to meet current compliance requirements. Scope In: 9:36:51 AM Scope Withdrawal Time 0 hours 13 minutes 31 seconds Scope Out: 10:05:21 AM Procedure Note Arron Brito MD - 11/26/2015 10:19 AM CDT Patient Name: Nani Farley Procedure Date: 11/26/2015 Gender: Female Date of : 1960 Admit Type: Outpatient Procedure: Colonoscopy Proceduralist: Arron Brito MD Indications/Pre-Op Diagnosis: Screening for colorectal malignant neoplasm, This is the patient's first colonoscopy Medications: Fentanyl 100 micrograms IV, Midazolam 4 mgIV, The level of sedation administered wasmoderate Procedure Description: The patient had risks, benefits and alternatives explained to andgave informed consent. The patient had a stable cardiopulmonary status and judged an adequate candidate for conscious sedation. The [id number]-[id number] was passed through the anus and advanced tothe cecum, identified by appendiceal orifice and ileocecal valve. The colonoscopy was performed with moderate difficulty due to restricted mobility of the colon. Successful completion of the procedure wasaided by withdrawing the scope and replacing with the pediatriccolonoscope. The patient tolerated the procedure well. The quality of the bowel preparation was good. The ileocecal valve, appendiceal orifice, and rectum were photographed. Complications: No immediate complications. Estimated Blood Loss & Specimen: Estimated blood loss: none. Specimen collected - Yes and sent to Laboratory Findings: The perianal and digital rectal examinations were normal. Two sessile polyps were found in the rectum. The polyps were 3 mm in size. These polyps were removed with a cold snare. Resection and retrieval were complete. Multiple small-mouthed diverticula were found in the sigmoid colon. There was narrowing of the colon in association with thediverticular opening. There was no evidence of diverticular bleeding . The exam was otherwise without abnormality on direct and retroflexion views. Impressions/Post-Op Diagnosis: - Two 3 mm polyps in the rectum, removed with a cold snare. Resectedand retrieved. - Moderate diverticulosis in the sigmoid colon. There was narrowingof the colon in association with the diverticular opening. There was no evidence of diverticular bleeding. - The examination was otherwise normal on direct and retroflexionviews. Recommendation: - Patient has a contact number available for emergencies. The signsand symptoms of potential delayed complications were discussed with the patient. Return to normal activities tomorrow. Written discharge instructions were provided to the patient. - Resume previous diet. - Continue present medications. - Await pathology results. - Repeat colonoscopy is recommended. The colonoscopy date will be determined after pathology results from today's exam become available for review. Arron Brito MD 11/26/2015 10:19:18 AM This report has been signed electronically. Note Initiated On: 11/26/2015 8:54 AM Procedure Code(s): --- Professional --- 23605, Colonoscopy, flexible; with removalof tumor(s), polyp(s), or other lesion(s) bysnare technique Diagnosis Code(s): --- Professional --- Z12.11, Encounter for screening formalignant neoplasm of colon K62.1, Rectal polyp K57.30, Diverticulosis of large intestine without perforation or abscess withoutbleeding CPT copyright 2015 [employer]. All rights reserved. The codes documented in this report are preliminary and upon certified medical records coder reviewmay be revised to meet current compliance requirements. 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
[2024-09-06 13:44] VITALS: BP 141/103; PULSE 102; RESP 22; TEMP 36.9; O2SAT 96; BMI 46.6
--- NOTE | 2024-09-06 14:51 | ED.SKABFB ---
HPI - Skin/Abscess/Foreign Bdy General Chief complaint: Skin/Abscess/Foreign Body Stated complaint: R eye irritation Time Seen by Provider: 09/06/24 13:56 History of Present Illness HPI narrative: This 64-year-old female was diagnosed with a cellulitis of the right upper eyelid 3 days ago and has been taking Keflex. She comes in today stating that the swelling has gone down but she feels like the redness is more pronounced. She does not report any discharge from her eye or vision changes. Related Data Home Medications ?Medication ?Instructions ?Recorded ?Confirmed albuterol sulfate 90 mcg/actuation 2 puff inhalation Q4H PRN 11/03/21 09/03/24 aerosol inhaler amlodipine 10 mg tablet 10 mg PO QPM 11/03/21 09/03/24 glucosamine-chondroitin 500 mg-400 1 cap PO BID 11/03/21 09/03/24 mg capsule hydrochlorothiazide 25 mg tablet 25 mg PO QPM 11/03/21 09/03/24 omeprazole 20 mg capsule,delayed 20 mg PO QPM 11/03/21 09/03/24 release simvastatin 20 mg tablet 20 mg PO QPM 11/03/21 09/03/24 losartan 50 mg tablet 50 mg PO QDAY 11/04/21 09/03/24 Previous Rx's ?Medication ?Instructions ?Recorded nicotine 10 mg inhalation 1 inh inhalation 4-6XD PRN 12/23/21 cartridge (Nicotrol) nicotine cravings #168 ea amoxicillin 500 mg capsule 2,000 mg (4 x 500 mg) PO ONCE #4 06/22/23 caps cephalexin 500 mg capsule 500 mg PO QID 7 days #28 caps 09/03/24 Allergies Allergy/AdvReac Type Severity Reaction Status Date / Time lisinopril Allergy Intermediate Lip Verified 09/03/24 08:38 swelling metoprolol AdvReac Verified 09/03/24 08:38 Review of Systems Status of ROS: Reports: 10 or more systems reviewed and unremarkable except as noted in History and below Narrative: Constitutional: No fevers, no weight gain or loss. Eyes: No discharge. No vision changes. Redness in the right upper eyelid. HENT: No congestion, no sore throat, no ear pain. Cardiovascular: No chest pain, no palpitations. Respiratory: No shortness of breath, no wheezes, no cough. Gastrointestinal: No abdominal pain, no vomiting, no diarrhea. Genitourinary: No dysuria, no hematuria. Musculoskeletal: Normal range of motion. Skin: No rashes, no pruritis. Neurological: No dizziness, weakness, sensory change, speech change. Endo/Heme/Allergies: No bruising or bleeding. No polydipsia. Pysch: no suicidality, no anxiety, no insomnia. All other systems reviewed and are negative. [facility] Medical History Obesity, morbid, BMI 40.0-49.9 ?E66.01 - Morbid (severe) obesity due to excess calories (ICD-10) Tobacco abuse ?Z72.0 - Tobacco use (ICD-10) Hyperlipidemia ?E78.5 - Hyperlipidemia, unspecified (ICD-10) Hypertension affecting ?O16.9 - Unspecified maternal hypertension, unspecified trimester (ICD-10) Asthma ?J45.909 - Unspecified asthma, uncomplicated (ICD-10) Hypertension ?I10 - Essential (primary) hypertension (ICD-10) Osteoarthritis of knees, bilateral ?M17.0 - Bilateral primary osteoarthritis of knee (ICD-10) Cervical cancer (~1992) ?C53.9 - Malignant neoplasm of cervix uteri, unspecified (ICD-10) Angioedema ?T78.3XXA - Angioneurotic edema, initial encounter (ICD-10) Surgical History 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 Designates fianc? as POA for health should that be required. Desires full resuscitation in event of cardiopulmonary demise, but does not want to be kept alive as a vegetable. What is your current living situation?: I presently have a place to live Smoking Status: Current every day smoker What tobacco products do you use: cigarettes Smoking packs per day: 1 Smoking cigarettes per day: 20.0 Years smoked: 40 Smoking pack-years: 40.00 Do you use any of these nicotine containing products: None Second hand tobacco smoke exposure: No How often do you have a drink containing alcohol: 2-3 times a week Alcohol type: beer How many standard drinks containing alcohol do you have on a typical day: 3 or 4 How often do you have six or more drinks on one occasion: Never AUDIT-C Alcohol total score: 4 Non-prescribed substance use: denies use Caffeine: Yes (coffee, 2 cups/am) Exam Narrative: Exam Narrative: Constitutional: Well-developed, well-nourished, no acute distress. HEENT: The right upper eyelid has very minimal swelling but distinct erythema. There is no involvement of either eye. Neck: Normal range of motion. Nontender. Supple. Heart: Regular. No murmurs. Normal rate. Intact distal pulses. Lungs: Clear to auscultation. No chest discomfort. No wheezes, rhonchi, or rales. Abdomen: Normal bowel sounds. Nontender. No rebound tenderness. Genitalia: Deferred. Back: No midline tenderness. Normal range of motion. Extremities: Normal range of motion. No injury. Skin: Intact. No rash. Warm. No erythema or pallor. Neurologic: No altered sensation. No weakness. Alert and oriented. Psychiatric: No suicidality. No anxiety or depression. No insomnia. Nursing notes and vitals signs are reviewed. Const: Vital Signs, click to edit/add: Vital Signs - 24 hr 09/06/24 13:44 Temperature 98.4 F Pulse Rate [Pulse Oximeter] 102 H Respiratory Rate 22 Blood Pressure [Ri ght Upper Arm] 141/103 H Pulse Oximetry 96 Oxygen Delivery Me thod Room Air Course Vital Signs Vital signs: Initial Vital Signs Temperature 98.4 F 09/06/24 13:44 Temperature Source Temporal Artery Scan 09/06/24 13:44 Pulse Rate 102 H 09/06/24 13:44 Respiratory Rate 22 09/06/24 13:44 Blood Pressure 141/103 H 09/06/24 13:44 Blood Pressure Mean 115 H 09/06/24 13:44 Blood Pressure Position Sitting 09/06/24 13:44 Pulse Oximetry 96 09/06/24 13:44 Oxygen Delivery Method Room Air 09/06/24 13:44 Vital Signs Temperature 98.4 F 09/06/24 13:44 Pulse Rate 102 H 09/06/24 13:44 Respiratory Rate 22 09/06/24 13:44 Blood Pressure 141/103 H 09/06/24 13:44 Pulse Oximetry 96 09/06/24 13:44 Oxygen Delivery Method Room Air 09/06/24 13:44 Temperature 98.4 F 09/06/24 13:44 Pulse Rate 102 H 09/06/24 13:44 Respiratory Rate 22 09/06/24 13:44 Blood Pressure 141/103 H 09/06/24 13:44 Pulse Oximetry 96 09/06/24 13:44 Oxygen Delivery Method Room Air 09/06/24 13:44 MDM - Skin/Abscess/Foreign Bdy MDM Narrative Medical decision making narrative: This patient is taking Keflex for will was determined to be a cellulitis and she states that the swelling is improved but the redness has persisted. She is not showing any signs of orbital cellulitis. I stated that there is a possibility this could be a shingles flare up. There is not seem to be any involvement of her eye if this were the case. Additionally she is beyond the time frame where antiviral medication would be indicated as these symptoms started at least 4 days ago. I did describe signs and symptoms that would indicate a need for return and re-evaluation. Discharge Plan Discharge Clinical Impression: Cellulitis Patient Disposition: Home, Self-Care Condition: Stable Additional Instructions: Continue current plans. Avoid using makeup on that eyelid until symptoms clear. Follow up with MD return if worsening symptoms occur. Prescriptions: No Action glucosamine-chondroitin 500-400 mg capsule 1 cap PO BID albuterol sulfate 90 mcg/actuation HFA aerosol inhaler 2 puff inhalation Q4H PRN hydrochlorothiazide 25 mg tablet 25 mg PO QPM omeprazole 20 mg capsule,delayed release(DR/EC) 20 mg PO QPM simvastatin 20 mg tablet 20 mg PO QPM amlodipine 10 mg tablet 10 mg PO QPM losartan 50 mg tablet 50 mg PO QDAY Patient Comments: TAKE ONE TABLET BY MOUTH EVERY DAY cephalexin 500 mg capsule 500 mg PO QID 7 Days Qty: 28 0RF Nicotrol 10 mg cartridge 1 inh inhalation 4-6XD PRN (Reason: nicotine cravings) Qty: 168 8RF amoxicillin 500 mg capsule 2,000 mg PO ONCE Qty: 4 3RF Rx Instructions: Recommended to wait 6 months post total knee replacement to have non-urgent dental procedures. Continued pre-meds recommended as long as patient still is an active tobacco user. Follow Up/Referrals: Nancy Nielsen MD [Primary Care Provider, Family Practice] Stand Alone Forms: Rupture Info Instructions
== END 2024-09-06 15:23 | disposition home or self-care (01) ==
LOC: ED 15:21
PROVIDERS: Emergency Provider Emergency Medicine Emergency Medical Services; PCP Family Medicine
DX: H00.031 Abscess of right upper eyelid (principal)
CPT/HCPCS: 99282; 99283; 99284

== ENCOUNTER 2024-11-01 14:52 | Emergency (ER) | payer MEDICARE, BC, SELFPAY ==
[2024-11-01] VITALS (14 sets, daily range): BP systolic 151–187; BP diastolic 99–111; PULSE 67–89; RESP 32; TEMP 36.6; O2SAT 88–99; BMI 47.1
--- OUTSIDE RECORDS SUMMARY | 2024-11-01 14:56 | XMS_ITS | Clinical Summary ---
Author Organization [facility] Address [address] [place] [address] Care Team Providers Care Commercial Lawn Specialist Name Role Phone Nancy Nielsen MD Primary Care Provider Allergies Active Allergy Reactions Criticality Noted Date Comments Lisinopril Angioedema 09/30/2020 Metoprolol Other - Describe In Comment Field Weight gain Medications amoxicillin (AMOXIL) 500 mg capsule TAKE 4 CAPSULES BY MOUTH ONE HOUR PRIOR TO DENTAL APPOINTMENT 022 Active omeprazole (PRILOSEC) 20 mg Delayed-Release capsuleIndication s:Chronic GERD Take 1 Capsule (20 mg) by mouth once daily before a meal. 90 Capsule 3 025 Active albuterol HFA (PRO-AIR; VENTOLIN; PROVENTIL) 90 mcg/actuation inhalerIndication s:Upper respiratory tract infection, unspecified type Inhale 2 Puffs by mouth every 4 hours if needed for Shortness of Breath 1st choice or Wheezing 1st choice. 1 Each 025 Active amLODIPine (NORVASC) 5 mg tabletIndications :Hypertension, unspecified type Take 1 Tablet (5 mg) by mouth once daily. 90 Tablet 3 025 Active hydroCHLOROthiazi de 25 mg tabletIndications :Hypertension, unspecified type Take 1 Tablet (25 mg) by mouth once daily. 90 Tablet 3 025 Active losartan (COZAAR) 50 mg tabletIndications :Hypertension, unspecified type Take 1 Tablet (50 mg) by mouth once daily. 90 Tablet 3 025 Active simvastatin (ZOCOR) 20 mg tabletIndications :Hyperlipidemia, unspecified hyperlipidemia type Take 1 Tablet (20 mg) by mouth at bedtime. 90 Tablet 3 025 Active triamcinolone 0.025 % ointmentIndicatio ns:Dermatitis APPLY TOPICALLY TO AFFECTED AREAS TWO TIMES DAILY 80 g 025 Active triamcinolone 0.025% (ARISTOCORT) 0.025 % ointment ONE APPLICATION TOPICALLY EVERY DAY FOR 14 DAYS. PLEASE APPLY TO CHEST, BACK, LEFT LOWER LEG EVERY DAY FOR UP TO TWO WEEKS. DISCONTINUE USE 022 2024 Discontinued(R eorder (E-cancel not sent)) albuterol HFA (PRO-AIR; VENTOLIN; PROVENTIL) 90 mcg/actuation inhalerIndication s:Upper respiratory tract infection, unspecified type Inhale 2 Puffs by mouth every 4 hours if needed for Shortness of Breath 1st choice or Wheezing 1st choice. 1 Each 024 2024 Discontinued(R eorder (E-cancel not sent)) omeprazole (PRILOSEC) 20 mg Delayed-Release capsuleIndication s:Chronic GERD Take 1 Capsule (20 mg) by mouth once daily before a meal. 90 Capsule 3 024 2024 Discontinued(R eorder (E-cancel not sent)) varenicline (CHANTIX DOSEPAK) 0.5 mg (11)- 1 mg (42) tabletIndications :Personal history of nicotine dependence Days 1-3 take 0.5mg once daily; Days 4-7 take 0.5mg twice daily; then increase to 1mg twice daily. Take with meals. 1 Packet 024 2024 Discontinued(* Allergic/Adver se Rxn/Side Effects) varenicline (CHANTIX) 1 mg tabletIndications :Personal history of nicotine dependence Take 1 mg by mouth two times daily with meals. 112 Tablet 3 024 2024 Discontinued(* Allergic/Adver se Rxn/Side Effects) amLODIPine 5 mg tabletIndications :Hypertension, unspecified type Take 1 Tablet (5 mg) by mouth once daily. 30 Tablet 3 025 2024 Discontinued(R eorder (E-cancel not sent)) hydroCHLOROthiazi de 25 mg tabletIndications :Hypertension, unspecified type Take 1 Tablet (25 mg) by mouth once daily. 30 Tablet 3 025 2024 Discontinued(R eorder (E-cancel not sent)) losartan 50 mg tabletIndications :Hypertension, unspecified type Take 1 Tablet (50 mg) by mouth once daily. 30 Tablet 3 025 2024 Discontinued(R eorder (E-cancel not sent)) simvastatin 20 mg tabletIndications :Hyperlipidemia, unspecified hyperlipidemia type Take 1 Tablet (20 mg) by mouth at bedtime. 30 Tablet 3 025 2024 Discontinued(R eorder (E-cancel not sent)) triamcinolone 0.025 % ointmentIndicatio ns:Dermatitis Apply topically to affected area(s) two times daily. 80 g 025 2024 Discontinued Active Problems Problem Noted Date Diagnosed Date Lung nodules 09/20/2023 Overview (09/30/2023): 09/20/23- RAD 4A with scattered linear opacities. There is one area that is 9mm in the EPHRAIM. These may be related to fibrosis. [facility]. Obesity, morbid 09/19/2023 Angioedema 01/16/2021 Status post right hip replacement 01/16/2021 Routine adult health maintenance 11/28/2015 Overview (11/28/2015): Colonoscopy 11/2015 hyperplastic polyps repeat in 10 years Hypertension 10/13/2010 Hyperlipidemia 10/13/2010 Tobacco abuse 10/13/2010 Encounters Date Type Department Care Team Description 10/30/2024 Refill [facility] [address] [place] [address] Nancy Nielsen MD Refill Request (Triamcinolone) 10/03/2024 9:40 AM CDT Office Visit [facility] [address] [place] [address] Nancy Nielsen MD Medication Management (Refills/) 10/02/2024 10:15 AM CDT Orders Only [facility] [address] [place] [address] [facility], [facility] 10/02/2024 Travel 09/28/2024 Travel 09/27/2024 Travel 09/03/2024 Telephone [facility] [address] [place] [address] Nancy Nielsen MD Questions 08/15/2024 Telephone [facility] [address] [place] [address] [facility] [address] [place] [address] Jana Flores MD Results 08/13/2024 11:30 AM CDT Ancillary Procedure [facility] [address] [place] [address] 08/13/2024 Travel 08/08/2024 Travel from Last 3 Months Immunizations Immunization Administration Dates Next Due AMB Influenza, IIV3 (Age >=3 years)(Flu Clinic Only) 01/07/2011,01/16/2010 COVID-19 vaccine (Pfizer-Bio NTech 30mcg/0.3mL) 12YO+ BIVALENT PF, MDV 12/11/2021 COVID-19 vaccine (Pfizer-Bio NTech 30mcg/0.3mL) 12YO+ JUANITO-SUCROSE PF, MDV 08/24/2021 COVID-19 vaccine (Pfizer-Bio NTech 30mcg/0.3mL) PF, MDV 08/24/2021,01/16/2021,06/19/2020,05/29 Influenza A (H1N1), Inactiva rosendo (Age >=3 Years) 03/28/2009 Influenza, IIV3 (Age >=3 years) 12/15/2012,12/28,02/21/2009 Influenza, IIV4 12/11/2021,,11/08/2019,11/16,11/18/2017,12/12/2015,12/14/2013 ,03/28/2009 Influenza, IIV4 (=>6mos) MDV 12/09/2016 Influenza, Inactivated IIV3 (Age 65+ Years) Preserv Free 11/29/2023 Pneumococcal Conj 20-valent (Prevnar 20) 08/24/2021 Pneumococcal Poly,23-Valent (Pneumovax) 12/07/2019 RSV, Recombinant ADJ Reconst ituted (Arexvy 120MCG/0.5mL) 11/29/2023 Tdap 12/07/2019,11/05/2010 Zoster (Shingrix-RZV, recombinant) 03/05/2019, Family [...] Date Smoking Tobacco: Every Day Cigarettes 1 48.8 Started: 01/17/1976 Smokeless Tobacco: Never Tobacco Cessation:Ready to Q uit: Yes; Counseling Given: Not Answered Alcohol Use Standard Drinks/Week Comments Yes 0 (1 standard drink = 0.6 oz pure alcohol) two days week weekend can be excessive PHQ-2 Answer Date Recorded PHQ-2 TOTAL SCORE 0 09/19/2023 Social Connections Answer Date Recorded Do you often feel lonely or isolated from those around you? 0 10/03/2024 Financial Resource Strain Answer Date R ecorded Difficulty of Paying Living Expenses 3 10/03/2024 Difficulty of Paying Living Expenses Not on file 10/03/2024 Food Insecurity Answer Date Recorded Do you worry your food will run out before you are able to buy more? 1 10/03/2024 Transportation Needs Answer Date Record ed Does lack of transportation keep you from medica l appointments? 1 10/03/2024 Does lack of transportation keep you from work, meetings or getting things that you need? 1 10/03/2024 Housing Stability Answer Date Recorded What is your housing situation today? 1 10/03/2024 Utilities Answer Date Recorded Do you have trouble paying f or utilities (for example, heat, electricity, water, phone)? 1 10/03/2024 Comments No Sex and Gender Information Value Date Recorded Sex Assigned at Not on file Legal Sex Female 5:25 AM PAINTER DRUM Gender Identity Not on file Sexual Orientation Not on file Obstetrics History Last Filed Vital Signs Vital Sign Reading Time Taken Comments Blood Pressure 135/86 10/03/2024 9:37 AM CDT Pulse 78 10/03/2024 9:37 AM CDT Temperature 36.4 C (97.5 F) 10/05/2023 11:25 AM CDT Respiratory Rate 16 10/05/2023 11:2 5 AM CDT Oxygen Saturation 97% 10/03/2024 9:37 AM CDT Inhaled Oxygen Concentration - - Weight 128.5 kg (283 lb 3.2 oz) 10/03/2024 9:37 AM CDT Height 165.1 cm (5' 5) 10/03/2024 9:37 AM CDT Body Mass Index 47.13 10/03/2024 9:37 AM CDT Plan of Treatment Upcoming Encounters Date Type Department Care Team (Late st Contact Info) Description 11/26/2024 7:00 AM CDT Office Visit [facility] [address] [place] [address] Nancy Nielsen MD [address] [place] [address] Health Maintenance Due Date Last Done Comments Medicare Wellness for age 65+ 2023 COVID-19 vaccine series ( season) 2023 12/11/2021, 08/24/2021, 08/24/2021, Additional history exists Depression screening for age 12+ 09/19/2024 09/20/2023, 09/19/2023, 10/08/2020, Additional history exists Influenza Vaccine (#1) 2024 , 12/11/2021, 12/09/2020, Additional history exists Low Dose CT (for lung CA) age 50-80 01/24/2025 01/25/2024, 09/20/2023 Mammogram for age 45-75 05/01/2025 05/01/19 25, 04/27/2023, 04/05/2022, Additional history exists BMI (ht and wt on same day) for age 18+ 10/03/2025 10/03/2024, 10/05/2023, 09/20/2022, Additional history exists Colonoscopy through age 75 11/25/2025 11/26/2015, Lipids for age 45-75 10/02/2029 10/02/2024, 09/13/2023, 09/08/2022, Additional history exists Tetanus booster 12/06/2029 12/07/2019, 11/05/2010 Zoster (shingles) series for age 50+ Completed 03/05/2019, 11/16/2018 Hepatitis C screening for age 18-79 Completed 12/05/2019 Pneumococcal series for age 50+ Completed 08/24/2021, 12/07/2019 DEXA/DXA scan for age 65+ Completed 09/20/2023 RSV vaccine for adults or Completed 11/29/2023 Hepatitis B series for 19+ Aged Out N o longer eligible based on patient's age to complete this topic Procedures Procedure Name Priority Date/Time Associated Diagnosis Comments BASIC METABOLIC PANEL Routine 10/02/2024 10:04 AM CDT Hypertension LIPID PANEL W REFLEX MEASURED LDL Routine 10/02/2024 10:04 AM CDT Hyperlipidemia, unspecified hyperlipidemia type CT CHEST LOW DOSE WO FOR LUNG RADS 0 OR 3 FOLLOW UP Routine 08/13/2024 11:29 AM CDT Pulmonary nodules XR MAMMO BILAT SCREENING Routine 05/01/2024 11:40 AM PAINTER DRUM Visit for screening mammogram CT CHEST WO Routine 01/25/2024 11:30 AM PAINTER DRUM Lung nodules XR DXA BONE DENSITY 2 SITES AXIAL Routine 09/20/2023 1:31 PM CDT Postmenopausal ANTI HCV Routine 12/05/2019 9:13 AM CDT Need for hepatitis C screening test COLONOSCOPY 11/26/2015 8:54 AM CDT from Last 3 Months or Most Recently Relevant to Health Maintenance Results * (ABNORMAL) LIPID PANEL W REFLEX MEASURED LDL (10/02/2024 10:04 AM CDT) CHOLESTEROL, TOTAL 184 <200 mg/dL [facility] HDL CHOLESTEROL 60 > OR = 50 mg/dL [facility] TRIGLYCERIDES 132 <150 mg/dL [facility] LDL-CHOLESTEROL 101(H) mg/dL (calc) [facility] Comment: Reference range: <100 Desirable range <100 mg/dL for primary prevention; <70 mg/dL for patients with CHD or diabetic patients with > or = 2 CHD risk factors. LDL-C is now calculated using the Niranjan calculation, which is a validated novel method providing better accuracy than the Friedewald equation in the estimation of LDL-C. Arron SS et al. ANDRIY. 2013;310(19): 5602-6933 (http://education.BioScrip/faq/ZOB012) CHOL/HDLC RATIO 3.1 <5.0 (calc) [facility] NON HDL CHOLESTEROL 124 <130 mg/dL (calc) [facility] Comment: For patients with diabetes plus 1 major ASCVD risk factor, treating to a non-HDL-C goal of <100 mg/dL (LDL-C of <70 mg/dL) is considered a therapeutic option. Blood BLOOD SPECIMEN / Unknown 10/02/2024 10:04 AM CDT 10/02/2024 10:05 AM CDT Nancy Nielsen MD CHEMISTRY Final R esult [facility] [address] [place] [address], [place] [phone] [facility] [address] [place] [address] * BASIC METABOLIC PANEL (10/02/2024 10:04 AM CDT) GLUCOSE 98 65 - 99 mg/dL [facility] Comment: Fasting reference interval UREA NITROGEN (BUN) 11 7 - 25 mg/dL [facility] CREATININE 0.67 0.50 - 1.05 mg/dL [facility] EGFR 96 > OR = 60 mL/min/1. 73m2 [facility] BUN/CREATININE RATIO SEE NOTE: 6 - 22 (calc) [facility] Comment: Not Reported: BUN and Creatinine are within reference range. SODIUM 136 135 - 146 mmol/L [facility] POTASSIUM 4.1 3.5 - 5.3 mmol/L [facility] CHLORIDE 100 98 - 110 mmol/L [facility] CARBON DIOXIDE 26 20 - 32 mmol/L [facility] ELECTROLYTE BALANCE 10 7 - 17 mmol/L (calc) [facility] CALCIUM 9.4 8.6 - 10.4 mg/dL [facility] Blood BLOOD SPECIMEN / Unknown 10/02/2024 10:04 AM CDT 10/02/2024 10:05 AM CDT us Nancy Neilsen MD CHEMISTRY Final R esult [facility] [address] [place] [address], [facility] [address] [place] [address] * CT CHEST LOW DOSE WO FOR [...] ADDENDUM Module completed. No change to report. CRL:dominique Impressions 08/15/2024 8:51 AM CDT Stable scattered [...] upper abdomen: Normal. Bones: Unremarkable for age. us Jana Flores MD CT Edited Result - Final * XR MAMMO BILAT SCREENING (05/01/2024 11:40 AM PAINTER DRUM) Anatomical Region Laterality Modality BREASTS, Breast Left, Breast Right Bilateral Mammography Impressions 05/07/2024 3:21 PM PAINTER DRUM There is no radiographic evidence for malignancy. Recommend annual mammograms. MAMMOGRAM ASSESSMENT: ACR 1 Negative PATIENTS: You will also receive a letter with your examination results in an easy to read format. If you have questions about your results, please contact your referring provider. Narrative 05/07/2024 3:21 PM PAINTER DRUM For Patients: As a result of the Cures Act, medical imaging exams and procedure reports are released immediately into your electronic medical record. You may view this report before your referring provider. If you have questions, please contact your health care provider. XR MAMMO BILAT SCREENING [[id number]] CLINICAL HISTORY: This is an asymptomatic 63 y.o. patient. INDICATION FOR EXAM: Mammogram Screening. TECHNIQUE: CC & MLO views were obtained. This study was evaluated with the assistance of Computer-Aided Detection. COMPARISON FILM: Yes 04/27/23 [facility] 04/05/22 [facility] SOCIAL FINDINGS: The breasts are almost entirely fatty. There are no dominant masses, suspicious micro calcifications or areas of architectural distortion. us Nancy Nielsen MD MAMMO Final R esult * CT CHEST WO (01/25/2024 11:30 AM PAINTER DRUM) Anatomical Region Laterality Modality CHEST, THORAX, HEART Computed To mography 01/25/2024 7:03 PM PAINTER DRUM Impressions 01/25/2024 7:03 PM PAINTER DRUM Stable reticular airspace opacities within both lungs, [...] PM (Electronically Signed) Narrative 01/25/2024 7:03 PM PAINTER DRUM For Patients: As a result of the [...] XR DXA BONE DENSITY 2 SITES AXIAL [19083.1] (09/20/2023 1:31 PM CDT) Anatomical Region Laterality [...] to assess therapeutic efficacy. Dianne Fuentes PA-C [facility] 09/27/2023 Narrative 09/27/2023 2:00 PM CDT For Patients: Results are automatically released to your [facility] ([employer]) account once available, in compliance with federal regulations. This means that you may see your results before your provider has had a chance to review them. Please allow 2-3 business days for your provider to comment on the results. XR DXA Bone Mineral Density (BMD) EXAM LOCATION: [address] [address] PATIENT NAME: Nani Farley DATE OF : [...] two scanners are made by the same cream tester. PROCEDURE: Dual-energy x-ray absorptiometry performed with routine [...] Osteoporosis: T-score at or below -2.5 SD Nancy Nielsen MD DEXA Final R esult * ANTI HCV (12/05/2019 9:13 AM CDT) Pathologist [facility] HEPATITIS C ANTIBODY Non-React noemi Non-React noemi 12/05/2019 6:11 PM CDT [facility] [employer] [facility] Comment:Antibodies to HCV no t detected; does not exclude the possibility of exposure to HCV. Blood BLOOD SPECIMEN / Unknown Butterfly / Unknown 12/05/2019 9:13 AM CDT 12/05/2019 9:13 AM CDT Nancy Nielsen MD SEND OUTS Final R esult [facility] [address] [place] [address], [place] * COLONOSCOPY (11/26/2015 8:54 AM CDT) [...] adequate candidate for conscious sedation. The PCF-[id number] [id number] was passed through the anus and advanced [...] 8:54 AM Procedure Code(s): --- Professional --- 94880, Colonoscopy, flexible; with removal of tumor(s), polyp(s), or other lesion(s) by snare technique Diagnosis Code(s): --- Professional --- Z12.11, Encounter for screening for malignant neoplasm of colon K62.1, Rectal polyp K57.30, Diverticulosis of large intestine without perforation or abscess without bleeding CPT copyright 2015 [employer]. All rights reserved. The codes documented in this report are preliminary and upon medical accountant review may be revised to meet current [...] adequate candidate for conscious sedation. The PCF-[id number] [id number] was passed through the anus and advanced [...] 8:54 AM Procedure Code(s): --- Professional --- 03204, Colonoscopy, flexible; with removalof tumor(s), polyp(s), or other lesion(s) bysnare technique Diagnosis Code(s): --- Professional --- Z12.11, Encounter for screening formalignant neoplasm of colon K62.1, Rectal polyp K57.30, Diverticulosis of large intestine without perforation or abscess withoutbleeding CPT copyright 2015 [employer]. All rights reserved. The codes documented in this report are preliminary and upon medical accountant reviewmay be revised to meet current compliance requirements. Scope In: 9:36:51 AM Scope Withdrawal Time 0 hours 13 minutes 31 seconds Scope Out: 10:05:21 AM Arron Brito MD PROCEDURE ORD Final Res ult from Last 3 Months or Most Recently Relevant to Health Maintenance Insurance [employer] BLUE MR PB ONLY MEDICARE PART B HB ONLY MEDICARE PART A HB ONLY [employer] BLUE HB ONLY Advance Directives Documents on File Type Date Recorded Patient Dispatcher [employer] anation Healthcare Directive 01/23/2015 10:51 AM 01/16/2015 Care Teams Commercial Lawn Specialist Relationship Specialty Start Date End Date Nancy Nielsen MD [address] [place] [address] PCP - General Family Practice 11/05/10
--- NOTE | 2024-11-01 15:41 | CRLHL7_ITS ---
For Patients: As a result of the Cures Act, medical imaging exams and procedure reports are released immediately into your electronic medical record. You may view this report before your referring provider. If you have questions, please contact your health care provider. Indication: Shortness of breath, wheezing. Technique: Chest 2 views. Comparison: Chest x-ray October 26, 2024. Findings/Impression: No focal consolidation, pleural effusion or pneumothorax. The cardiomediastinal silhouette is unremarkable Dictated by Nixon Ruffin MD @ 11/01/2024 4:23:02 PM (Electronically Signed)
--- NOTE | 2024-11-01 16:08 | ED.GENADULT ---
HPI - General Adult General Date Seen: 11/01/24 Chief complaint: Shortness of Breath/Dyspnea Stated complaint: SOB Time Seen by Provider: 11/01/24 14:57 History of Present Illness HPI narrative: Patient is a 64-year-old woman who is here for evaluation of ongoing shortness of breath and wheezing. She has been having trouble for about a week. She says symptoms started abruptly the day after she was cleaning out her bird bath or bird cage. She does have underlying asthma, she has a long history of tobacco use but says she is not aware of any diagnosis of COPD. She was seen in urgent care on the , given a course of steroids which she has finished. She was given a DuoNeb and albuterol inhalers and she says she has been using those frequently. She feels better briefly after using them that symptoms come back and she does not feel overall that she is getting any better. She has not had any fever, body aches, chills or other systemic symptoms. She has not had chest pain. She has had a significant cough. She continues to smoke although she says she has not been able to smoke very much the past day or 2. She is worried about possible infection related to the bird cleaning her significant other also asks about ?fluid on lungs. No orthopnea or PND, no lower extremity swelling. Related Data Home Medications ?Medication ?Instructions ?Recorded ?Confirmed albuterol sulfate 90 mcg/actuation 2 puff inhalation Q4H PRN 11/03/21 11/01/24 aerosol inhaler amlodipine 10 mg tablet 10 mg PO QPM 11/03/21 11/01/24 hydrochlorothiazide 25 mg tablet 25 mg PO QPM 11/03/21 11/01/24 omeprazole 20 mg capsule,delayed 20 mg PO QPM 11/03/21 11/01/24 release simvastatin 20 mg tablet 20 mg PO QPM 11/03/21 11/01/24 losartan 50 mg tablet 50 mg PO QDAY 11/04/21 11/01/24 Previous Rx's ?Medication ?Instructions ?Recorded amoxicillin 500 mg capsule 2,000 mg (4 x 500 mg) PO ONCE #4 06/22/23 caps ipratropium 0.5 mg-albuterol 3 mg 3 ml inhalation Q4-6H PRN 10/26/24 (2.5 mg base)/3 mL nebulization shortness of breath #90 mL soln albuterol sulfate 2.5 mg/3 mL 2.5 mg (3 mL) inhalation Q6H #75 mL 11/01/24 (0.083 %) solution for nebulization budesonide-formoterol HFA 80 2 puff inhalation BID #10.2 grams 11/01/24 mcg-4.5 mcg/actuation aerosol inhaler Allergies Allergy/AdvReac Type Severity Reaction Status Date / Time lisinopril Allergy Intermediate Lip Verified 11/01/24 15:04 swelling metoprolol AdvReac Verified 11/01/24 15:04 Review of Systems Status of ROS: Reports: 10 or more systems reviewed and unremarkable except as noted in History and below [facility] Medical History Obesity, morbid, BMI 40.0-49.9 ?E66.01 - Morbid (severe) obesity due to excess calories (ICD-10) Tobacco abuse ?Z72.0 - Tobacco use (ICD-10) Hyperlipidemia ?E78.5 - Hyperlipidemia, unspecified (ICD-10) Hypertension affecting ?O16.9 - Unspecified maternal hypertension, unspecified trimester (ICD-10) Asthma ?J45.909 - Unspecified asthma, uncomplicated (ICD-10) Hypertension ?I10 - Essential (primary) hypertension (ICD-10) Osteoarthritis of knees, bilateral ?M17.0 - Bilateral primary osteoarthritis of knee (ICD-10) Cervical cancer (~1992) ?C53.9 - Malignant neoplasm of cervix uteri, unspecified (ICD-10) Angioedema ?T78.3XXA - Angioneurotic edema, initial encounter (ICD-10) Surgical History 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 Designates fianc? as POA for health should that be required. Desires full resuscitation in event of cardiopulmonary demise, but does not want to be kept alive as a vegetable. What is your current living situation?: I presently have a place to live Smoking Status: Current every day smoker What tobacco products do you use: cigarettes Smoking packs per day: 1 Smoking cigarettes per day: 20.0 Years smoked: 40 Smoking pack-years: 40.00 Do you use any of these nicotine containing products: None Second hand tobacco smoke exposure: No How often do you have a drink containing alcohol: 2-3 times a week Alcohol type: beer How many standard drinks containing alcohol do you have on a typical day: 3 or 4 How often do you have six or more drinks on one occasion: Never AUDIT-C Alcohol total score: 4 Non-prescribed substance use: denies use Caffeine: Yes (coffee, 2 cups/am) Exam Narrative: Exam Narrative: Vital signs reviewed In general, alert, nontoxic med age woman, she looks dyspneic but no acute respiratory failure. Head: Normocephalic, atraumatic. Eyes: Sclera clear. Pupils equal and reactive. ENT: Mucous membranes moist. Neck: Supple without adenopathy. Heart: Regular rate and rhythm without murmur. Lungs: Diffuse wheezes bilaterally, some rhonchi. No crackles. Breath sounds equal. Abdomen: Soft, nontender to palpation. Extremities: Well perfused, pulses intact. No significant edema. Neurologic: Alert, conversant. Speech fluent, face symmetric. Moves all extremities equally. Skin: Warm, dry well perfused. Affect: Normal. Const: Vital Signs, click to edit/add: Vital Signs - 24 hr 11/01/24 14:58 11/01/24 15:37 11/01/24 15:45 Temperature 97.8 F Pulse Rate 71 69 Pulse Rate [Right Pulse Oximeter] 81 Respiratory Rate 32 H Blood Pressure Blood Pressure [Ri ght Upper Arm] 151/101 H Pulse Oximetry 90 90 91 Oxygen Delivery Me thod Room Air 11/01/24 16:00 11/01/24 16:15 11/01/24 16:25 Temperature Pulse Rate 76 67 69 Pulse Rate [Right Pulse Oximeter] Respiratory Rate Blood Pressure 157/99 H Blood Pressure [Ri ght Upper Arm] Pulse Oximetry 90 99 95 Oxygen Delivery Me thod 11/01/24 16:30 11/01/24 16:32 11/01/24 16:45 Temperature Pulse Rate 79 82 69 Pulse Rate [Right Pulse Oximeter] Respiratory Rate Blood Pressure 171/100 H Blood Pressure [Ri ght Upper Arm] Pulse Oximetry 90 90 89 Oxygen Delivery Me thod 11/01/24 17:00 11/01/24 17:02 11/01/24 17:15 Temperature Pulse Rate 74 71 74 Pulse Rate [Right Pulse Oximeter] Respiratory Rate Blood Pressure 187/111 H Blood Pressure [Ri ght Upper Arm] Pulse Oximetry 89 90 88 Oxygen Delivery Me thod 11/01/24 17:30 11/01/24 17:32 Temperature Pulse Rate 89 73 Pulse Rate [Right Pulse Oximeter] Respiratory Rate Blood Pressure 187/110 H Blood Pressure [Ri ght Upper Arm] Pulse Oximetry 89 88 Oxygen Delivery Me thod Course Course ED Course: Overall symptoms concern Jorge compatible with an asthma or COPD exacerbation, but given that she has not improved despite a course of steroids and inhaler is, I think it is reasonable to look for other possible causes. I did review her Urgent Care note, she had a chest x-ray done at that time which showed some linear opacities on the right felt likely to be related to scarring. I elected to repeat her chest x-ray today. Discussed that psittacosis, which we might associated with interacting with bird droppings, seems an unlikely cause for her symptoms in the absence of other flu like symptoms. Discussed that it could just have set off an exacerbation of her underlying asthma. I suspect she does have a component of COPD with prolonged tobacco use history. Looking through her records, her O2 sats typically are in the mid 90s so 90% here is a little low for her. Will see if she improves after a DuoNeb here. Will also give her a little more prednisone, and check some labs as well as an EKG. Labs reviewed, all reassuring. D-dimer is negative. EKG showed a sinus rhythm, no acute ST segment changes. Troponin is 0, venous blood gas is reassuring with a normal pH, normal pCO2. White blood cell count is elevated at 13 but this may simply be related to the steroids. Chest x-ray is again clear by my review, clear by final radiology read. She is improved after DuoNeb. I gave her a dose of prednisone here but I think I am going to try putting her on Symbicort and see if this helps her improved. Return any time for worsening, otherwise primary care follow-up, she has an appointment scheduled on the , which should be fine assuming she is improving. Vital Signs Vital signs: Initial Vital Signs Temperature 97.8 F 11/01/24 14:58 Temperature Source Temporal Artery Scan 11/01/24 14:58 Pulse Rate 81 11/01/24 14:58 Pulse Rhythm Regular 11/01/24 14:58 Pulse Strength 3+ Normal 11/01/24 14:58 Respiratory Rate 32 H 11/01/24 14:58 Blood Pressure 151/101 H 11/01/24 14:58 Blood Pressure Mean 117 H 11/01/24 14:58 Blood Pressure Position Sitting 11/01/24 14:58 Pulse Oximetry 90 11/01/24 14:58 Oxygen Delivery Method Room Air 11/01/24 14:58 Vital Signs Temperature 97.8 F 11/01/24 14:58 Pulse Rate 81 11/01/24 14:58 Respiratory Rate 32 H 11/01/24 14:58 Blood Pressure 151/101 H 11/01/24 14:58 Pulse Oximetry 90 11/01/24 14:58 Oxygen Delivery Method Room Air 11/01/24 14:58 Temperature 97.8 F 11/01/24 14:58 Pulse Rate 73 11/01/24 17:32 Respiratory Rate 32 H 11/01/24 14:58 Blood Pressure 187/110 H 11/01/24 17:32 Pulse Oximetry 88 11/01/24 17:32 Oxygen Delivery Method Room Air 11/01/24 14:58 Medications Administered Medications: Discontinued Medications Generic Name Dose Route Start Last Admin Trade Name Freq PRN Reason Stop Dose Admin Albuterol/Ipratropium 1 neb 11/01/24 15:39 11/01/24 16:09 Iprat-Albut 0.5-2.5 Mg/3 Ml Neb IH 11/01/24 15:40 1 neb ONCE ONE Administration Prednisone 60 mg 11/01/24 15:39 11/01/24 16:09 Prednisone 20 Mg Tablet PO 11/01/24 15:40 60 mg ONCE ONE Administration Medical Decision Making Lab Data Labs: Lab Results 11/01/24 Range/Units 15:57 WBC 13.14 H (4.50-11.00) K/uL RBC 4.84 (4.00-5.20) m/uL Hgb 15.1 (12.0-16.0) gm/dL Hct 45.4 (33.0-51.0) % MCV 94 (80-100) fL MCH 31 (26-34) pg MCHC 33 (32-36) gm/dL RDW Coeff of Mo 12.9 (11.5-15.5) % Plt Count 249 (140-440) K/uL Neut % (Auto) 68.3 (42.0-72.0) % Lymph % (Auto) 16.5 L (20-44) % Cottle % (Auto) 9.4 (0.0-11.0) % Eos % (Auto) 5.0 (0.0-7.0) % Baso % (Auto) 0.5 (0.0-3.0) % Neut # (Auto) 9.00 H (1.7-7.0) K/uL Lymph # (Auto) 2.20 (0.90-2.90) K/uL Cottle # (Auto) 1.20 H (0.00-0.90) K/UL Eos # (Auto) 0.70 H (0.00-0.50) K/uL Baso # (Auto) 0.10 (0.00-0.30) K/uL Abs Immat Gran (auto) 0.00 (0.00-0.30) K/uL Imm/Tot Granulo (auto) 0.3 % D-Dimer Quant (PE/DVT) < 0.27 (0.00-0.50) ug/ml VBG pH 7.406 (7.32-7.43) VBG pCO2 43 (40-50) mmHG VBG pO2 41.2 (25-47) mmHG VBG HCO3 27 (21-28) mmol/L Sodium 133 L (135-149) mmol/L Potassium 3.8 (3.6-5.1) mmol/L Chloride 99 (96-114) mmol/L Carbon Dioxide 25 (20-32) mmol/L Anion Gap 9 (7-15) mEq/L BUN 16 (7-30) mg/dL Creatinine 0.7 (0.5-1.5) mg/dL Estimated Creat Clear 49.80 Estimated GFR 95 ml/min Glucose 112 (60-115) mg/dL Calcium 9.6 (8.4-10.6) mg/dL C-Reactive Protein 0.8 (0.5-1.0) mg/dL NT-Pro-B Natriuret Pep 103 (See Note) pg/mL POC Troponin I 0.00 L (0.01-0.04) ng/ml Imaging Data Chest x-ray: Attestation: I have reviewed the pertinent imaging results. Radiologist's impression: Patient: Nani Farley MR#: [id number] : 1960 Acct:[id number] Loc: ED Service Date: 11/01/[address]: Ordering Physician: Ashley Riley M.D. Date of Service: 11/01/24 Procedure(s): XR chest 2V Accession Number(s): [id number] cc: Ashley Riley M.D.; Nancy Nielsen M.D.~ For Patients: As a result of the Cures Act, medical imaging exams and procedure reports are released immediately into your electronic medical record. You may view this report before your referring provider. If you have questions, please contact your health care provider. Indication: Shortness of breath, wheezing. Technique: Chest 2 views. Comparison: Chest x-ray October 26, 2024. Findings/Impression: No focal consolidation, pleural effusion or pneumothorax. The cardiomediastinal silhouette is unremarkable Dictated by Nixon Ruffin MD @ 11/01/2024 4:23:02 PM Discharge Plan Discharge Clinical Impression: Asthma exacerbation Patient Disposition: Home, Self-Care Instructions: Asthma (DC) Prescriptions: New budesonide-formoterol 80-4.5 mcg/actuation HFA aerosol inhaler 2 puff inhalation BID Qty: 10.2 2RF albuterol sulfate 2.5 mg /3 mL (0.083 %) solution for nebulization 2.5 mg inhalation Q6H Qty: 75 2RF No Action albuterol sulfate 90 mcg/actuation HFA aerosol inhaler 2 puff inhalation Q4H PRN hydrochlorothiazide 25 mg tablet 25 mg PO QPM omeprazole 20 mg capsule,delayed release(DR/EC) 20 mg PO QPM simvastatin 20 mg tablet 20 mg PO QPM amlodipine 10 mg tablet 10 mg PO QPM losartan 50 mg tablet 50 mg PO QDAY Patient Comments: TAKE ONE TABLET BY MOUTH EVERY DAY ipratropium-albuterol 0.5 mg-3 mg(2.5 mg base)/3 mL solution for nebulization 3 ml inhalation Q4-6H PRN (Reason: shortness of breath) Qty: 90 0RF amoxicillin 500 mg capsule 2,000 mg PO ONCE Qty: 4 3RF Rx Instructions: Recommended to wait 6 months post total knee replacement to have non-urgent dental procedures. Continued pre-meds recommended as long as patient still is an active tobacco user. Follow Up/Referrals: Nancy Nielsen MD [Primary Care Provider, Family Practice] [facility] Inst[facility] Procedures ABG Interpretation ABG Results: 11/01/24 15:57 VBG pH 7.406 VBG pCO2 43 VBG pO2 41.2 VBG HCO3 27
[2024-11-01] MEDS: IPRAT-ALBUT 0.5-2.5 MG/3 ML NEB 1 NEB IH (16:09)
[2024-11-01 16:18] LABS: HCO3 VBG 27 mmol/L (21-28); PCO2 VBG 43 mmHG (40-50); PO2 VBG 41.2 mmHG (25-47); pH VBG 7.406 (7.32-7.43)
[2024-11-01 16:19] LABS: Hematocrit 45.4 % (33.0-51.0); Hemoglobin* 15.1 gm/dL (12.0-16.0); Immature Granulocytes Pct Auto 0.3 %; Mean Corpuscular HGB Conc 33 gm/dL (32-36); Mean Corpuscular Hemoglobin 31 pg (26-34); Mean Corpuscular Volume 94 fL (80-100); RDW Coefficient of Variation % 12.9 % (11.5-15.5); Red Blood Count 4.84 m/uL (4.00-5.20); White Blood Count* 13.14 K/uL (4.50-11.00)
[2024-11-01 16:29] LABS: Immature Granulocytes Abs Auto 0.00 K/uL (0.00-0.30); Lymphocytes Absolute Auto 2.20 K/uL (0.90-2.90); Slide Review Reflex No
[2024-11-01 16:34] LABS: Chloride* 99 mmol/L (96-114); Potassium* 3.8 mmol/L (3.6-5.1); Sodium* 133 mmol/L (135-149)
[2024-11-01 16:36] LABS: Blood Urea Nitrogen* 16 mg/dL (7-30); Creatinine* 0.7 mg/dL (0.5-1.5); Est. Creatinine Clearance* 49.80; Estimated Glomerular Filt Rate 95 ml/min
[2024-11-01 16:37] LABS: Anion Gap 9 mEq/L (7-15); Calcium* 9.6 mg/dL (8.4-10.6); Carbon Dioxide* 25 mmol/L (20-32); Glucose* 112 mg/dL (60-115)
[2024-11-01 16:41] LABS: Troponin, Point-of-Care* 0.00 ng/ml (0.01-0.04)
[2024-11-01 17:01] LABS: NT Pro B Type NatriureticPept* 103 pg/mL (See Note)
[2024-11-01 17:43] LABS: D Dimer Quantitative* < 0.27 ug/ml (0.00-0.50)
== END 2024-11-01 18:13 | disposition home or self-care (01) ==
PROVIDERS: Emergency Provider Emergency Medicine; PCP Family Medicine
DX: J45.901 Unspecified asthma with (acute) exacerbation (principal); J96.01 Acute respiratory failure with hypoxia
CPT/HCPCS: 36415; 71046; 80048; 82803; 83880; 84484; 85025; 85379; 86140; 93005; 99284; 99285; J7512

== ENCOUNTER 2024-11-05 09:10 | Inpatient (IN) | payer MEDICARE, BC, SELFPAY ==
[2024-11-05] VITALS (14 sets, daily range): BP systolic 128–167; BP diastolic 72–101; PULSE 66–107; RESP 16–34; TEMP 36–36.9; O2SAT 85–92; BMI 46.6; BMI 45.1; BMI 45.2
--- OUTSIDE RECORDS SUMMARY | 2024-11-05 09:13 | XMS_ITS | Clinical Summary ---
Author Organization [employer] [facility] Address [address] [place] [id number] Care Team Providers Care Sewer Pipe Sorter Name Role Phone Nancy Nielsen MD Primary [...] TWO TIMES DAILY 80 g 025 Active amLODIPine 5 mg tabletIndications :Hypertension, unspecified type [...] be related to fibrosis. [facility] Obesity, morbid 09/19/2023 Angioedema 01/16/2021 Status post right hip replacement 01/16/2021 Routine adult health maintenance 11/28/2015 Overview (11/28/2015): Colonoscopy 11/2015 hyperplastic polyps repeat in 10 years Hypertension 10/13/2010 Hyperlipidemia 10/13/2010 Tobacco abuse 10/13/2010 Encounters Date Type Department Care Team Description 11/01/2024 Orders Only [facility] Scanner 1 scan: (1-Ord) [facility], XR CHEST, 11/01/2024 10/30/2024 Refill [facility] [address] [place] [address] Nancy Nielsen MD Refill Request (Triamcinolone) 10/03/2024 9:40 AM CDT Office Visit [facility] [address] [place] [address] Nancy Nielsen MD Medication Management (Refills/) 10/02/2024 10:15 AM CDT Orders Only [facility] [address] [facility] [address] Lab, [facility] 10/02/2024 Travel 09/28/2024 Travel 09/27/2024 Travel 09/03/2024 Telephone [facility] [address] [place] [address] Nancy Nielsen MD Questions 08/15/2024 Telephone [facility] [address] [place] [id number] Jana Flores MD Results 08/13/2024 11:30 AM CDT Ancillary Procedure [facility] [address] [facility] [place] [address] 08/13/2024 Travel 08/08/2024 Travel from Last 3 Months Immunizations Immunization Administration Dates Next Due AMB Influenza, IIV3 (Age >=3 years)(Flu Clinic Only) 01/07/2011,01/16/2010 COVID-19 vaccine (Pfizer-Bio NTech 30mcg/0.3mL) 12YO+ BIVALENT PF MDV 12/11/2021 COVID-19 vaccine (Pfizer-Bio NTech 30mcg/0.3mL) [...] on file Legal Sex Female 5:25 AM ORDER PACKER OR PACKAGER Gender Identity Not on file Sexual Orientation [...] Description 11/26/2024 7:00 AM CDT Office Visit [facility] [address] [place] [address] Nancy Nielsen MD [address] [place] [address] Health Maintenance Due Date Last Done Comments [...] 05/01/2025 05/01/19, 04/27/2023, 04/05/2022, Additional history exists BMI (ht [...] Procedure Name Priority Date/Time Associated Diagnosis Comments SCAN-RADIOLOGY REPORT 11/01/2024 12:00 AM CDT BASIC METABOLIC PANEL Routine 10/02/2024 10:04 AM CDT Hypertension LIPID PANEL W REFLEX MEASURED LDL Routine 10/02/2024 10:04 AM CDT Hyperlipidemia, unspecified hyperlipidemia type CT CHEST LOW DOSE WO FOR LUNG RADS 0 OR 3 FOLLOW UP Routine 08/13/2024 11:29 AM CDT Pulmonary nodules XR MAMMO BILAT SCREENING Routine 05/01/2024 11:40 AM ORDER PACKER OR PACKAGER Visit for screening mammogram CT CHEST WO Routine 01/25/2024 11:30 AM ORDER PACKER OR PACKAGER Lung nodules XR DXA BONE DENSITY 2 SITES AXIAL Routine 09/20/2023 1:31 PM CDT Postmenopausal ANTI HCV Routine 12/05/2019 9:13 AM CDT Need for hepatitis C screening test COLONOSCOPY 11/26/2015 8:54 AM CDT from Last 3 Months or Most Recently Relevant to Health Maintenance Results * SCAN-RADIOLOGY REPORT (11/01/2024 12:00 AM CDT) Anatomical Region Laterality Modality Other us Scanner OTHER Final Result * (ABNORMAL) LIPID PANEL W REFLEX MEASURED LDL (10/02/2024 10:04 AM CDT) Pathologist [facility] CHOLESTEROL, TOTAL 184 <200 mg/dL [facility] HDL CHOLESTEROL 60 > OR = 50 mg/dL [facility] TRIGLYCERIDES 132 <150 mg/dL [facility] LDL-CHOLESTEROL 101(H) mg/dL (calc) [facility] Comment: Reference range: <100 Desirable range <100 mg/dL for primary prevention; <70 mg/dL for patients with CHD or diabetic patients with > or = 2 CHD risk factors. LDL-C is now calculated using the Niranjan calculation, which is a validated novel method providing better accuracy than the Friedewald equation in the estimation of LDL-C. Arron SS et al. ANDRIY. 2013;310(19): 0816-2601 (http://education.Scality/faq/PYA756) CHOL/HDLC RATIO 3.1 <5.0 (calc) [facility] NON HDL CHOLESTEROL 124 <130 mg/dL (calc) [facility] Comment: For patients with diabetes plus 1 major ASCVD risk factor, treating to a non-HDL-C goal of <100 mg/dL (LDL-C of <70 mg/dL) is considered a therapeutic option. Blood BLOOD SPECIMEN / Unknown 10/02/2024 10:04 AM CDT 10/02/2024 10:05 AM CDT Nancy Nielsen MD CHEMISTRY Final R esult Performing Organization Address City/[facility]/ZIP Co de Phone Number [facility] [address] [place] [address], [facility] [address] [place] [address] * BASIC METABOLIC PANEL (10/02/2024 10:04 AM CDT) Pathologist [facility] GLUCOSE 98 65 - 99 mg/dL [facility] Comment: Fasting reference interval UREA NITROGEN [...] Nancy Nielsen MD CHEMISTRY Final R esult [facility] [address] [place] [address], [facility] [address] [place] [address] * CT CHEST LOW DOSE WO FOR [...] XR MAMMO BILAT SCREENING (05/01/2024 11:40 AM ORDER PACKER OR PACKAGER) Anatomical Region Laterality Modality BREASTS, Breast Left, Breast Right Bilateral Mammography Impressions 05/07/2024 3:21 PM ORDER PACKER OR PACKAGER There is no radiographic evidence for malignancy. Recommend annual mammograms. MAMMOGRAM ASSESSMENT: ACR 1 Negative PATIENTS: You will also receive a letter with your examination results in an easy to read format. If you have questions about your results, please contact your referring provider. Narrative 05/07/2024 3:21 PM ORDER PACKER OR PACKAGER For Patients: As a result of the Cures Act, medical imaging exams and procedure reports are released immediately into your electronic medical record. You may view this report before your referring provider. If you have questions, please contact your health care provider. XR MAMMO BILAT SCREENING [[id number]] CLINICAL HISTORY: This is an asymptomatic 63 y.o. patient. INDICATION FOR EXAM: Mammogram Screening. TECHNIQUE: CC & MLO views were obtained. This study was evaluated with the assistance of Computer-Aided Detection. COMPARISON FILM: Yes 04/27/23 [facility] 04/05/22 [facility] FINDINGS: The breasts are almost entirely fatty. There are no dominant masses, suspicious micro calcifications or areas of architectural distortion. Nancy Nielsen MD MAMMO Final R esult * CT CHEST WO (01/25/2024 11:30 AM ORDER PACKER OR PACKAGER) Anatomical Region Laterality Modality CHEST, THORAX, HEART Computed To mography 01/25/2024 7:03 PM ORDER PACKER OR PACKAGER Impressions 01/25/2024 7:03 PM ORDER PACKER OR PACKAGER Stable reticular airspace opacities within both lungs, [...] PM (Electronically Signed) Narrative 01/25/2024 7:03 PM ORDER PACKER OR PACKAGER For Patients: As a result of the [...] XR DXA BONE DENSITY 2 SITES AXIAL [90158.1] (09/20/2023 1:31 PM CDT) Anatomical Region Laterality [...] to assess therapeutic efficacy. Dianne Fuentes PA-C [facility] 09/27/2023 Narrative 09/27/2023 2:00 PM CDT For Patients: Results are automatically released to your [facility] ([employer]) account once available, in compliance with federal regulations. This means that you may see your results before your provider has had a chance to review them. Please allow 2-3 business days for your provider to comment on the results. XR DXA Bone Mineral Density (BMD) EXAM LOCATION: [address] [address] PATIENT NAME: Nani Farley DATE OF : [...] two scanners are made by the same rehabilitation liaison. PROCEDURE: Dual-energy x-ray absorptiometry performed with routine [...] ANTI HCV (12/05/2019 9:13 AM CDT) Pathologist [facility] HEPATITIS C ANTIBODY Non-React noemi Non-React noemi 12/05/2019 6:11 PM CDT [facility] Comment:Antibodies to HCV no t detected; does not exclude the possibility of exposure to HCV. Blood BLOOD SPECIMEN / Unknown Butterfly / Unknown 12/05/2019 9:13 AM CDT 12/05/2019 9:13 AM CDT us Nancy Nielsen MD SEND OUTS Final R esult [facility] [address] [place] [address], [place] * COLONOSCOPY (11/26/2015 8:54 AM CDT) [...] adequate candidate for conscious sedation. The PCF-Q290AL [id number] was passed through the anus and advanced [...] 8:54 AM Procedure Code(s): --- Professional --- 82090, Colonoscopy, flexible; with removal of tumor(s), polyp(s), or other lesion(s) by snare technique Diagnosis Code(s): --- Professional --- Z12.11, Encounter for screening for malignant neoplasm of colon K62.1, Rectal polyp K57.30, Diverticulosis of large intestine without perforation or abscess without bleeding CPT copyright 2015 [employer]. All rights reserved. The codes documented in this report are preliminary and upon program paraprofessional review may be revised to meet current [...] adequate candidate for conscious sedation. The PCF-Q290AL [id number] was passed through the anus and advanced [...] 8:54 AM Procedure Code(s): --- Professional --- 85333, Colonoscopy, flexible; with removalof tumor(s), polyp(s), or other lesion(s) bysnare technique Diagnosis Code(s): --- Professional --- Z12.11, Encounter for screening formalignant neoplasm of colon K62.1, Rectal polyp K57.30, Diverticulosis of large intestine without perforation or abscess withoutbleeding CPT copyright 2015 [employer]. All rights reserved. The codes documented in this report are preliminary and upon program paraprofessional reviewmay be revised to meet current compliance requirements. Scope In: 9:36:51 AM Scope Withdrawal Time 0 hours 13 minutes 31 seconds Scope Out: 10:05:21 AM us Arron Brito MD PROCEDURE ORD Final Res ult from Last 3 Months or Most Recently Relevant to Health Maintenance Insurance [employer] [place] BLUE MR PB ONLY MEDICARE PART B HB ONLY MEDICARE PART A HB ONLY [employer] BLUE HB ONLY Advance Directives Documents on File Type Date Recorded Patient Day Care Assistant Expl anation Healthcare Directive 01/23/2015 10:51 AM 01/16/2015 Care Teams Sewer Pipe Sorter Relationship Specialty Start Date End Date Gia, Nancy Kimberly, MD [address] [place] [address] PCP - General Family Practice 11/05/10
--- NOTE | 2024-11-05 09:28 | ED.SOB ---
HPI - SOB/Dyspnea General Time Seen by Provider: 09:29 Date Seen: 11/05/24 Chief Complaint: Shortness of Breath/Dyspnea Stated Complaint: difficulty breathing Time Seen by Provider: 11/05/24 09:26 Source: patient, RN notes reviewed and old records reviewed Mode of arrival: ambulatory Limitations: no limitations History of Present Illness HPI Narrative: This 64-year-old female is coming in with complaint of difficulty breathing, she is accompanied by her significant other. They note she barely slept last night due to her respiratory symptoms. She was seen here on November 01 and diagnosed with an asthma exacerbation. She had been complaining of trouble for about a week at that point. She has underlying history of asthma, long history of tobacco use but has not been aware of any diagnosis of COPD. On October 26 she was given a course of steroids which she had completed by the time she was in the ER on the . She has DuoNebs at home and albuterol inhalers, had been using nose. She is worried about potential infection related to cleaning out a bird bath and a bird cage that she has at home. Chest x-ray imaging on the was negative, her workup was reassuring here in the ED on the . She was discharged with further prednisone. She still worries about underlying infection. She notes no fevers or chills. Patient is not on home oxygen, is 85% on arrival. MD elicited complaint: shortness of breath and asthma attack Related Data Home Medications ?Medication ?Instructions ?Recorded ?Confirmed albuterol sulfate 90 mcg/actuation 2 puff inhalation Q4H PRN 11/03/21 11/05/24 aerosol inhaler amlodipine 10 mg tablet 5 mg PO QPM 11/03/21 11/05/24 hydrochlorothiazide 25 mg tablet 25 mg PO QPM 11/03/21 11/05/24 omeprazole 20 mg capsule,delayed 20 mg PO QPM 11/03/21 11/05/24 release simvastatin 20 mg tablet 20 mg PO QPM 11/03/21 11/05/24 losartan 50 mg tablet 50 mg PO QDAY 11/04/21 11/05/24 Previous Rx's ?Medication ?Instructions ?Recorded ipratropium 0.5 mg-albuterol 3 mg 3 ml inhalation Q4-6H PRN 10/26/24 (2.5 mg base)/3 mL nebulization shortness of breath #90 mL soln albuterol sulfate 2.5 mg/3 mL 2.5 mg (3 mL) inhalation Q6H #75 mL 11/01/24 (0.083 %) solution for nebulization budesonide-formoterol HFA 80 2 puff inhalation BID #10.2 grams 11/01/24 mcg-4.5 mcg/actuation aerosol inhaler Allergies Allergy/AdvReac Type Severity Reaction Status Date / Time lisinopril Allergy Intermediate Lip Verified 11/05/24 09:20 swelling metoprolol AdvReac Verified 11/05/24 09:20 Review of Systems Status of ROS: Reports: 6 or more systems reviewed and unremarkable except as noted in History and below [facility] Medical History Obesity, morbid, BMI 40.0-49.9 ?E66.01 - Morbid (severe) obesity due to excess calories (ICD-10) Tobacco abuse ?Z72.0 - Tobacco use (ICD-10) Hyperlipidemia ?E78.5 - Hyperlipidemia, unspecified (ICD-10) Hypertension affecting ?O16.9 - Unspecified maternal hypertension, unspecified trimester (ICD-10) Asthma ?J45.909 - Unspecified asthma, uncomplicated (ICD-10) Hypertension ?I10 - Essential (primary) hypertension (ICD-10) Osteoarthritis of knees, bilateral ?M17.0 - Bilateral primary osteoarthritis of knee (ICD-10) Cervical cancer (~1992) ?C53.9 - Malignant neoplasm of cervix uteri, unspecified (ICD-10) Angioedema ?T78.3XXA - Angioneurotic edema, initial encounter (ICD-10) Surgical History 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 Designates fianc? as POA for health should that be required. Desires full resuscitation in event of cardiopulmonary demise, but does not want to be kept alive as a vegetable. What is your current living situation?: I presently have a place to live Smoking Status: Current every day smoker What tobacco products do you use: cigarettes Smoking packs per day: 1 Smoking cigarettes per day: 20.0 Years smoked: 40 Smoking pack-years: 40.00 Do you use any of these nicotine containing products: None Second hand tobacco smoke exposure: No How often do you have a drink containing alcohol: 2-3 times a week Alcohol type: beer How many standard drinks containing alcohol do you have on a typical day: 3 or 4 How often do you have six or more drinks on one occasion: Never AUDIT-C Alcohol total score: 4 Non-prescribed substance use: denies use Caffeine: Yes (coffee, 2 cups/am) service: No Exam Const: Vital Signs, click to edit/add: Vital Signs - 24 hr 11/05/24 09:15 11/05/24 09:32 11/05/24 09:32 Temperature 97.5 F L Pulse Rate [Right Pulse Oximeter] 107 H Respiratory Rate 34 H Blood Pressure [Ri ght Upper Arm] 155/87 H Pulse Oximetry 85 L 92 92 Oxygen Delivery Me thod Room Air Nasal Cannula Oxygen Flow Rate 4 This 64-year-old female is alert, interactive, tachypneic, speaking in very short phrases. Can hear audible wheezing but no stridor. Arrival pulse oximetry 85%. Up to 90 with 2 L nasal cannula oxygen. Sclera clear, conjugate gaze, symmetrical facial function. Neck thick but do not appreciate jugular venous distension, no adenopathy. Lungs with diffuse and expiratory wheezing throughout, prolonged expiratory phase. Underlying heart with distant heart sounds, do not appreciate murmur, slightly fast, normal S1-S2. Abdomen obese but soft, nontender, nondistended. Lower extremities are thickened but patient states they were at baseline, no true pitting edema, no calf tenderness. Documenting provider has reviewed patient's vital signs: yes Course Course ED Course: This patient has hypoxia, audible wheezing possible source infection from bird source. Do think acute active infection from the bird droppings is not significantly likely for the same reasons as Dr. Riley noted, patient has really no other systemic symptoms. Will do triple viral swab to see if there could be a respiratory virus. Will repeat EKG, troponin and D-dimer with consideration of concomitant cardiac disease or thromboembolic disease. She is on supplemental oxygen at this time. Will do a DuoNeb, give a dose of IV Solu-Medrol. She understands that we may be proceeding to chest CT in this evaluation. Will look at a portable chest quickly to see if we can define any etiology that we need to be aware of. She understands that I do think it is likely that she will need hospitalization. Reevaluation(s) Time of Reevaluation #1: 10:26 Reevaluation #1: Patient is feeling better after a DuoNeb. She still has end expiratory wheezing throughout. She does seem less tachypneic however, seems to have less work of breathing. Will do another DuoNeb. She is advised that her portable chest x-ray looks stable. We are awaiting labs. Consultations Consultation #1: Have reviewed with hospitalist Dr. Salguero, she accepts patient. Did review with her that we just received back the D-dimer which was normal. If they want to consider chest CT imaging, will leave that to them. Certainly COPD exacerbation, unclear at this time if antibiotics should or should not be considered. White count could be elevated given all the recent prednisone that she has been on. Time: 12:46 Vital Signs Vital signs: Initial Vital Signs Temperature 97.5 F L 11/05/24 09:15 Temperature Source Temporal Artery Scan 11/05/24 09:15 Pulse Rate 107 H 11/05/24 09:15 Pulse Rhythm Regular 11/05/24 09:15 Pulse Strength 3+ Normal 11/05/24 09:15 Respiratory Rate 34 H 11/05/24 09:15 Blood Pressure 155/87 H 11/05/24 09:15 Blood Pressure Mean 109 H 11/05/24 09:15 Blood Pressure Position Sitting 11/05/24 09:15 Pulse Oximetry 85 L 11/05/24 09:15 Oxygen Delivery Method Room Air 11/05/24 09:15 Vital Signs Temperature 97.5 F L 11/05/24 09:15 Pulse Rate 107 H 11/05/24 09:15 Respiratory Rate 34 H 11/05/24 09:15 Blood Pressure 155/87 H 11/05/24 09:15 Pulse Oximetry 85 L 11/05/24 09:15 Oxygen Delivery Method Room Air 11/05/24 09:15 Temperature 97.5 F L 11/05/24 09:15 Pulse Rate 107 H 11/05/24 09:15 Respiratory Rate 34 H 11/05/24 09:15 Blood Pressure 155/87 H 11/05/24 09:15 Pulse Oximetry 92 11/05/24 09:32 Oxygen Delivery Method Nasal Cannula 11/05/24 09:32 Oxygen Flow Rate 4 11/05/24 09:32 Medications Administered Medications: Discontinued Medications Generic Name Dose Route Start Last Admin Trade Name Freq PRN Reason Stop Dose Admin Albuterol/Ipratropium 1 neb 11/05/24 09:32 11/05/24 09:50 Iprat-Albut 0.5-2.5 Mg/3 Ml [facility] 11/05/24 09:33 1 neb ONCE ONE Administration Albuterol/Ipratropium 1 neb 11/05/24 10:28 11/05/24 10:50 Iprat-Albut 0.5-2.5 Mg/3 Ml Neb 11/05/24 10:29 1 neb ONCE ONE Administration Methylprednisolone Sodium Succinate 125 mg 11/05/24 09:32 11/05/24 10:15 Methylprednisolone Sod Succ 62.5 Mg/Ml (125) IVP 11/05/24 09:33 125 mg ONCE ONE Administration MDM - SOB/Dyspnea Differential Diagnosis Differential diagnosis: Likely acute exacerbation of chronic obstructive airways disease, congestive heart failure, community acquired pneumonia, asthma with exacerbation and pulmonary embolism Lab Data Attestation: I reviewed the patient's lab results. Labs: Lab Results 11/05/24 11/05/24 Range/Units 09:55 10:15 WBC 14.34 H (4.50-11.00) K/uL RBC 4.88 (4.00-5.20) m/uL Hgb 15.3 (12.0-16.0) gm/dL Hct 46.0 (33.0-51.0) % MCV 94 (80-100) fL MCH 31 (26-34) pg MCHC 33 (32-36) gm/dL RDW Coeff of Mo 13.0 (11.5-15.5) % Plt Count 276 (140-440) K/uL Neut % (Auto) 84.0 H (42.0-72.0) % Lymph % (Auto) 6.9 L (20-44) % Dauphin % (Auto) 6.3 (0.0-11.0) % Eos % (Auto) 2.1 (0.0-7.0) % Baso % (Auto) 0.2 (0.0-3.0) % Neut # (Auto) 12.00 H (1.7-7.0) K/uL Lymph # (Auto) 1.00 (0.90-2.90) K/uL Da[place]hin # (Auto) 0.90 (0.00-0.90) K/UL Eos # (Auto) 0.30 (0.00-0.50) K/uL Baso # (Auto) 0.00 (0.00-0.30) K/uL Abs Immat Gran (auto) 0.10 (0.00-0.30) K/uL Imm/Tot Granulo (auto) 0.5 % D-Dimer Quant (PE/DVT) < 0.27 (0.00-0.50) ug/ml VBG pH 7.375 (7.32-7.43) VBG pCO2 51 H (40-50) mmHG VBG pO2 68.6 H (25-47) mmHG VBG HCO3 30 H (21-28) mmol/L Sodium 134 L (135-149) mmol/L Potassium 3.6 (3.6-5.1) mmol/L Chloride 96 (96-114) mmol/L Carbon Dioxide 30 (20-32) mmol/L Anion Gap 8 (7-15) mEq/L BUN 15 (7-30) mg/dL Creatinine 0.6 (0.5-1.5) mg/dL Estimated Creat Clear 49.80 Estimated GFR 99 ml/min Glucose 152 H (60-115) mg/dL Lactate 2.0 H (0.5-1.9) mmol/L Calcium 9.6 (8.4-10.6) mg/dL Total Bilirubin 1.3 (0.1-1.5) mg/dL AST 43 H (12-35) U/L ALT 37 H (4-35) U/L Alkaline Phosphatase 91 (40-150) U/L Troponin I 0.04 (0.01-0.04) ng/mL C-Reactive Protein 1.2 H (0.5-1.0) mg/dL NT-Pro-B Natriuret Pep 318 H (See Note) pg/mL Total Protein 8.0 (6.0-8.3) g/dL Albumin 4.5 (3.3-5.0) g/dL SARS-CoV-2 (PCR) Negative SARS-CoV-2 (Negative) Influenza Type A (PCR) Negative PCR FLU A (Negative) Influenza Type B (PCR) Negative PCR FLU B (Negative) RSV (PCR) Negative PCR RSV (Negative) Imaging Data Chest x-ray: Attestation: I have reviewed the pertinent imaging results. My impression: Can see some changes along the right lung base, seems to be present on prior imaging. Await Radiology over-read. Radiologist's impression: Patient: CAIT HUGHES Facility:?[facility] Patient ID:?[id number] Site Patient ID:?[id number]. Site :?[id number] Study:?XRay-Chest 1 VIEW PORTABLE-11/05/2024 9:51:04 AM Ordering Physician:Bharti Bustos Final Report: INDICATION: sob, hypoxia, asthma hx. (Sic) COMPARISON: 11/01/2024 and 10/26/2024. TECHNIQUE: Portable AP view of the chest. FINDINGS: Medical Devices: None. Lung Volumes: Adequate inspiration. No significant atelectasis. Lungs: Redemonstration of branching linear opacities in the perihilar right mid lung. Differential diagnostic considerations include nonspecific minor fibrosis and subsegmental atelectasis. Otherwise clear lungs. Pleura and Pleural spaces: No significant pleural effusion. No pneumothorax. Mediastinum: Normal cardiomediastinal silhouette. Bony Thorax and Soft Tissues: No significant incidental findings. IMPRESSION: No acute findings or significant interval change compared to recent prior examinations dated 11/01/2024 and 10/26/2024 to explain the clinical history. Incidental findings as above. Dictated by Jani Liu MD @ 11/05/2024 9:58:21 AM (Electronic Signature) ECG Data Attestation: I personally reviewed and interpreted this ECG as follows: (Normal sinus rhythm, 99 beats per minute. Poor R-wave progression and flipped T-waves anterior precordial leads V1 through V2 for flipped T-waves.) ECG interpretation date: 11/05/24 ECG interpretation time: 10:09 Prior ECG tracings: available for review (Seems largely unchanged from EKG on 11/01/2024.) Discharge Plan Discharge Clinical Impression: Acute exacerbation of chronic obstructive pulmonary disease, Hypoxia, Acute hypoxemic respiratory failure Patient Disposition: Admitted As Inpatient Condition: Improved Procedures ABG Interpretation ABG Results: 11/05/24 10:15 VBG pH 7.375 VBG pCO2 51 H VBG pO2 68.6 H VBG HCO3 30 H
--- NOTE | 2024-11-05 09:32 | CRLHL7_ITS ---
For Patients: As a result of the Century Cures Act, medical imaging exams and procedure reports are released immediately into your electronic medical record. You may view this report before your referring provider. If you have questions, please contact your health care provider. INDICATION: sob, hypoxia, asthma hx. (Sic) COMPARISON: 11/01/2024 and 10/26/2024. TECHNIQUE: Portable AP view of the chest. FINDINGS: Medical Devices: None. Lung Volumes: Adequate inspiration. No significant atelectasis. Lungs: Redemonstration of branching linear opacities in the perihilar right mid lung. Differential diagnostic considerations include nonspecific minor fibrosis and subsegmental atelectasis. Otherwise clear lungs. Pleura and Pleural spaces: No significant pleural effusion. No pneumothorax. Mediastinum: Normal cardiomediastinal silhouette. Bony Thorax and Soft Tissues: No significant incidental findings. IMPRESSION: No acute findings or significant interval change compared to recent prior examinations dated 11/01/2024 and 10/26/2024 to explain the clinical history. Incidental findings as above. Dictated by Jani Liu MD @ 11/05/2024 9:58:21 AM (Electronically Signed)
[2024-11-05] MEDS: IPRAT-ALBUT 0.5-2.5 MG/3 ML NEB 1 NEB IH ×5 (09:50→21:25)
[2024-11-05] MEDS: METHYLPREDNISOLONE SOD SUCC 62.5 MG/ML (125) 125 MG IVP ×3 (10:15→20:28)
[2024-11-05 10:25] LABS: HCO3 VBG 30 mmol/L (21-28); Lactate* 2.0 mmol/L (0.5-1.9); PCO2 VBG 51 mmHG (40-50); PO2 VBG 68.6 mmHG (25-47); pH VBG 7.375 (7.32-7.43)
[2024-11-05 10:32] LABS: Hematocrit 46.0 % (33.0-51.0); Hemoglobin* 15.3 gm/dL (12.0-16.0); Immature Granulocytes Pct Auto 0.5 %; Mean Corpuscular HGB Conc 33 gm/dL (32-36); Mean Corpuscular Hemoglobin 31 pg (26-34); Mean Corpuscular Volume 94 fL (80-100); RDW Coefficient of Variation % 13.0 % (11.5-15.5); Red Blood Count 4.88 m/uL (4.00-5.20); White Blood Count* 14.34 K/uL (4.50-11.00)
[2024-11-05 10:35] LABS: Immature Granulocytes Abs Auto 0.10 K/uL (0.00-0.30); Lymphocytes Absolute Auto 1.00 K/uL (0.90-2.90); Slide Review Reflex No
[2024-11-05 10:40] LABS: PCR FLU A Negative PCR FLU A (Negative); PCR FLU B Negative PCR FLU B (Negative); PCR RSV Negative PCR RSV (Negative); SARS PCR* Negative SARS-CoV-2 (Negative)
[2024-11-05 10:43] LABS: Albumin* 4.5 g/dL (3.3-5.0); Chloride* 96 mmol/L (96-114); Potassium* 3.6 mmol/L (3.6-5.1); Sodium* 134 mmol/L (135-149)
[2024-11-05 10:46] LABS: Alanine Aminotransferase* 37 U/L (4-35); Aspartate Amino Transferase* 43 U/L (12-35); Blood Urea Nitrogen* 15 mg/dL (7-30); Creatinine* 0.6 mg/dL (0.5-1.5); Est. Creatinine Clearance* 49.80; Estimated Glomerular Filt Rate 99 ml/min
[2024-11-05 10:47] LABS: Alkaline Phosphatase* 91 U/L (40-150); Anion Gap 8 mEq/L (7-15); Bilirubin Total* 1.3 mg/dL (0.1-1.5); Calcium* 9.6 mg/dL (8.4-10.6); Carbon Dioxide* 30 mmol/L (20-32); Glucose* 152 mg/dL (60-115); Total Protein* 8.0 g/dL (6.0-8.3)
[2024-11-05 11:01] LABS: NT Pro B Type NatriureticPept* 318 pg/mL (See Note)
--- NOTE | 2024-11-05 11:21 | RESP.RT ---
Patient is currently on 3L NC SATing 93%. Patient states that she did not take her water pill today and she cannot lay flat without shourtness of breath and coughing. She stated that she has been coughing up white frothy mucus for the mast 2 weeks. Her chest x-ray also looks fluffy. Patient has a 40+ year pack history and takes an Albuterol inhaler that currently does not work. She states that she was prescribed Spiriva as well, but it was very expensive, so she has not been taking it as prescribed. Patient has had 2 Nebs already with minimal effect. She is purse lipped breathing, but if we are able to get fluid off she may not need to be placed on CPAP. If work of breathing increases, then I would recommend initiating CPAP to allow more time to get fluid off.
[2024-11-05 12:34] LABS: D Dimer Quantitative* < 0.27 ug/ml (0.00-0.50)
--- NOTE | 2024-11-05 12:56 | PM.IMHP1 ---
Assessment and Plan Assessment and plan (1) Acute hypoxemic respiratory failure: Problem comment: - likely 2/2 asthma/COPD exacerbation, also may have an element of JEWELS/CHF - steroids, nebs, supplemental oxygen with monitoring to ensure no CO2 retention, RT referral - IV Lasix x1 on 11/05, TTE ordered - follow on telemetry Status: Acute (2) Lung nodule: Problem comment: - noted in [facility] chart, followed by PCP regularly Status: Acute (3) Tobacco abuse: Problem comment: - 1 PPD for over 40 years - has been able to cut down/quit since current illness began 10/29/24 Status: Acute Plan - per above - Lovenox for ppx - partner updated bedside, questions answered Hospitalist- H&P: HPI History of Present Illness Date Seen: 11/05/24 Chief complaint: difficulty breathing Narrative: Nani Farley is a 64 year old female with a history of asthma and tobacco use disorder who presented to the ER for persistent CAICEDO, orthopnea, wheezing, and cough. Symptoms began fairly abruptly on 10/25. She was seen in UC on 10/26 and ER on 11/01 for the same, treated with nebs and Prednisone. Has not felt that she's made much improvement; actually felt worse when she presented to ER this morning. Her cough is productive of white/frothy material. No hemoptysis. No recent travel; had been cleaning a bird cage around the time symptoms began. ER Course and Findings: - presented with an oxygen saturation of 85% on RA, pulse of 107, respiration rate in the 30s - VBG with normal pH, mildly elevated CO2 at 51 - WBC of 14, lactate of 2.0, AST of 43 and ALT 37 (previously normal LFTs in [facility]) - no acute abnormalities on CXR, EKG reassuring and troponin negative - received Solumedrol, supplemental oxygen, nebs x2 Histories reviewed and updated below. PCP is Dr. Nielsen at the [facility]. Review of Systems Status of ROS: Reports: 10 or more systems reviewed and unremarkable except as noted in History and below Medical Decision Making Medical Decision Making Code Status: Full Has patient completed a Health Care Directive: No During This Stay, Who Would You Like To Make Decisions For You In The Event You Are Unable To Make Them For Yourself?: Kia Smith [facility] Medical History (Updated 11/05/24 @ 14:24 by Triny Salguero MD) Lung nodule (09/20/23) ?R91.1 - Solitary pulmonary nodule (ICD-10) Obesity, morbid, BMI 40.0-49.9 ?E66.01 - Morbid (severe) obesity due to excess calories (ICD-10) Tobacco abuse ?Z72.0 - Tobacco use (ICD-10) Hyperlipidemia ?E78.5 - Hyperlipidemia, unspecified (ICD-10) Hypertension affecting ?O16.9 - Unspecified maternal hypertension, unspecified trimester (ICD-10) Asthma ?J45.909 - Unspecified asthma, uncomplicated (ICD-10) Hypertension ?I10 - Essential (primary) hypertension (ICD-10) Osteoarthritis of knees, bilateral ?M17.0 - Bilateral primary osteoarthritis of knee (ICD-10) Cervical cancer (~1992) ?C53.9 - Malignant neoplasm of cervix uteri, unspecified (ICD-10) Angioedema ?T78.3XXA - Angioneurotic edema, initial encounter (ICD-10) Surgical History 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 History of ETOH overuse, currently drinking very little. Quit smoking during recent illness (10/28/24) Desires full resuscitation and intubation if needed, but would not want to be kept alive artificially. What is your current living situation?: I presently have a place to live Smoking Status: Current every day smoker What tobacco products do you use: cigarettes Smoking packs per day: 1 Smoking cigarettes per day: 20.0 Years smoked: 40 Smoking pack-years: 40.00 Do you use any of these nicotine containing products: None Second hand tobacco smoke exposure: No How often do you have a drink containing alcohol: 2-3 times a week Alcohol type: beer How many standard drinks containing alcohol do you have on a typical day: 3 or 4 How often do you have six or more drinks on one occasion: Never AUDIT-C Alcohol total score: 4 Non-prescribed substance use: denies use Caffeine: Yes (coffee, 2 cups/am) service: No Meds Home Medications and Allergies Home Medications ?Medication ?Instructions ?Recorded ?Confirmed ?Type albuterol sulfate 90 mcg/actuation 2 puff inhalation Q4H PRN 11/03/21 11/05/24 History aerosol inhaler amlodipine 10 mg tablet 5 mg PO QPM 11/03/21 11/05/24 History hydrochlorothiazide 25 mg tablet 25 mg PO QPM 11/03/21 11/05/24 History omeprazole 20 mg capsule,delayed 20 mg PO QPM 11/03/21 11/05/24 History release simvastatin 20 mg tablet 20 mg PO QPM 11/03/21 11/05/24 History losartan 50 mg tablet 50 mg PO QDAY 11/04/21 11/05/24 History ipratropium 0.5 mg-albuterol 3 mg 3 ml inhalation Q4-6H PRN 10/26/24 11/05/24 Rx (2.5 mg base)/3 mL nebulization shortness of breath #90 mL soln albuterol sulfate 2.5 mg/3 mL 2.5 mg (3 mL) inhalation Q6H #75 mL 11/01/24 11/05/24 Rx (0.083 %) solution for nebulization budesonide-formoterol HFA 80 2 puff inhalation BID #10.2 grams 11/01/24 11/05/24 Rx mcg-4.5 mcg/actuation aerosol inhaler Allergies Allergy/AdvReac Type Severity Reaction Status Date / Time lisinopril Allergy Intermediate Lip Verified 11/05/24 09:20 swelling metoprolol AdvReac Verified 11/05/24 09:20 Exam Narrative: Exam Narrative: GEN: Alert and oriented, sitting up in bed with 3-4 word dyspnea HEENT: EOMIs bilaterally, no scleral icterus CV: RRR, No concerning murmurs R: Tachypneic at rest, wheezing throughout bilateral lung bryson Ext: 1-2+ nonpitting edema bilateral lower extremities Skin: No concerning skin lesions or rashes on exposed skin Neuro: No focal deficits Psych: Appropriate Const: Vital Signs, click to edit/add: Vital Signs - 24 hr 11/05/24 09:15 11/05/24 09:32 11/05/24 09:32 Temperature 97.5 F L Pulse Rate [Right Pulse Oximeter] 107 H Respiratory Rate 34 H Blood Pressure [Ri ght Upper Arm] 155/87 H Pulse Oximetry 85 L 92 92 Oxygen Delivery Me thod Room Air Nasal Cannula Oxygen Flow Rate 4 Hospitalist - H&P: Result Labs Labs: Short CBC 11/05/24 Range/Units 10:15 WBC 14.34 H (4.50-11.00) K/uL Hgb 15.3 (12.0-16.0) gm/dL Hct 46.0 (33.0-51.0) % Plt Count 276 (140-440) K/uL BMP 11/05/24 10:15 Sodium 134 L Potassium 3.6 Chloride 96 Carbon Dioxide 30 BUN 15 Creatinine 0.6 Glucose 152 H Calcium 9.6 Cardiac Enzymes 11/05/24 Range/Units 10:15 Troponin I 0.04 (0.01-0.04) ng/mL Liver Function 11/05/24 Range/Units 10:15 Total Bilirubin 1.3 (0.1-1.5) mg/dL AST 43 H (12-35) U/L ALT 37 H (4-35) U/L Alkaline Phosphatase 91 (40-150) U/L Albumin 4.5 (3.3-5.0) g/dL
[2024-11-05] MEDS: POTASSIUM BICARB 25 MEQ EFFERVESCENT TAB 50 MEQ PO (14:15)
[2024-11-05] MEDS: FUROSEMIDE 10 MG/ML inj 40 MG IVP (14:16)
[2024-11-05] MEDS: LOSARTAN POTASSIUM 50 MG TABLET PO (15:38)
[2024-11-05] MEDS: AMLODIPINE 10 MG TABLET 5 MG PO (18:06)
[2024-11-05] MEDS: SIMVASTATIN 20 MG TABLET PO (18:06)
--- NOTE | 2024-11-05 18:50 | PC.NURSE ---
Pt arrived to the unit @ 1325, accompanied by significant other. AxOx4, cooperative, and pleasant with cares. SBA to bathroom. Oxygen extension cord in place. Pt currently at 3 L NC with sats remaining >88%. Hx of COPD. Tolerating heart healthy diet and fluids well. Denies pain/nausea/CP. Pt reports SOB with activity, talking, and repositioning in bed. Continent of the bladder. Up in bed watching television. Call light within reach. Family visited in the evening.
[2024-11-05 19:58] LABS: Lactate* 1.9 mmol/L (0.5-1.9)
[2024-11-05 20:02] LABS: HCO3 VBG 31 mmol/L (21-28); PCO2 VBG 39 mmHG (40-50); PO2 VBG 66.0 mmHG (25-47); pH VBG 7.51 (7.32-7.43)
--- NOTE | 2024-11-05 20:06 | PC.NURSE ---
Dr. Agustin updated on oxygen 84-88%. VBGs ordered/reviewed by . Increased oxygen to 4lpm per NC at 2004.
[2024-11-05 20:14] LABS: Chloride* 95 mmol/L (96-114); Potassium* 3.9 mmol/L (3.6-5.1); Sodium* 131 mmol/L (135-149)
[2024-11-05 20:17] LABS: Anion Gap 7 mEq/L (7-15); Blood Urea Nitrogen* 17 mg/dL (7-30); Calcium* 9.8 mg/dL (8.4-10.6); Carbon Dioxide* 29 mmol/L (20-32); Creatinine* 0.7 mg/dL (0.5-1.5); Est. Creatinine Clearance* 49.80; Estimated Glomerular Filt Rate 95 ml/min; Glucose* 175 mg/dL (60-115)
[2024-11-05] MEDS: SODIUM CHLORIDE 0.9 % (FLUSH) 10 ML SYRINGE 5 ML IVF (20:29)
[2024-11-06] VITALS (11 sets, daily range): BP systolic 100–137; BP diastolic 61–89; PULSE 63–98; RESP 16–20; TEMP 36.4–36.9; O2SAT 87–90
[2024-11-06] MEDS: IPRAT-ALBUT 0.5-2.5 MG/3 ML NEB 1 NEB IH ×6 (01:54→21:59)
[2024-11-06] MEDS: METHYLPREDNISOLONE SOD SUCC 62.5 MG/ML (125) 125 MG IVP (01:55)
[2024-11-06] MEDS: SODIUM CHLORIDE 0.9 % (FLUSH) 10 ML SYRINGE 5 ML IVF ×3 (01:57→21:13)
--- NOTE | 2024-11-06 05:15 | PC.NURSE ---
[id number] Pt slept well during night, titrated O2 down from 4LPM to 2 LPM via oxymask from [place], pt breathing thru mouth while sleeping, able to maintain sats. up to BR x1, SBA, increased SOB with activity, but states she is feeling much better than earlier. denies chest pain or headache. audible inspiratory and expiratory wheezing, no change after scheduled nebulizer administration.
[2024-11-06] MEDS: OMEPRAZOLE 20 MG CAPSULE DR 40 MG PO (06:22)
[2024-11-06 06:37] LABS: HCO3 VBG 32 mmol/L (21-28); PCO2 VBG 43 mmHG (40-50); PO2 VBG 55.9 mmHG (25-47); pH VBG 7.478 (7.32-7.43)
[2024-11-06 06:39] LABS: Hematocrit 42.0 % (33.0-51.0); Hemoglobin* 14.1 gm/dL (12.0-16.0); Immature Granulocytes Pct Auto 0.6 %; Mean Corpuscular HGB Conc 34 gm/dL (32-36); Mean Corpuscular Hemoglobin 31 pg (26-34); Mean Corpuscular Volume 94 fL (80-100); RDW Coefficient of Variation % 12.9 % (11.5-15.5); Red Blood Count 4.49 m/uL (4.00-5.20); White Blood Count* 15.26 K/uL (4.50-11.00)
[2024-11-06 06:43] LABS: Immature Granulocytes Abs Auto 0.10 K/uL (0.00-0.30); Lymphocytes Absolute Auto 0.90 K/uL (0.90-2.90); Slide Review Reflex No
[2024-11-06 06:57] LABS: Albumin* 4.0 g/dL (3.3-5.0); Chloride* 95 mmol/L (96-114); Potassium* 3.6 mmol/L (3.6-5.1); Sodium* 132 mmol/L (135-149)
[2024-11-06 06:59] LABS: Alanine Aminotransferase* 31 U/L (4-35); Aspartate Amino Transferase* 31 U/L (12-35); Blood Urea Nitrogen* 20 mg/dL (7-30); Creatinine* 0.8 mg/dL (0.5-1.5); Est. Creatinine Clearance* 49.80; Estimated Glomerular Filt Rate 81 ml/min
[2024-11-06 07:00] LABS: Alkaline Phosphatase* 74 U/L (40-150); Anion Gap 6 mEq/L (7-15); Bilirubin Total* 1.2 mg/dL (0.1-1.5); Calcium* 9.5 mg/dL (8.4-10.6); Carbon Dioxide* 31 mmol/L (20-32); Gamma Glutamyl Transpeptidase* 28 U/L (8-55); Glucose* 155 mg/dL (60-115); Total Protein* 7.1 g/dL (6.0-8.3)
--- NOTE | 2024-11-06 07:12 | P.IMPN_ITS ---
Assessment and Plan Assessment and plan (1) Acute hypoxemic respiratory failure: Problem comment: - likely 2/2 asthma/COPD exacerbation, also may have an element of JEWELS/CHF - steroids, nebs, supplemental oxygen with monitoring to ensure no CO2 retention - RT following - IV Lasix x1 on 11/05, TTE ordered for 11/06 - stable HR on telemetry Status: Acute (2) Tobacco abuse: Problem comment: - 1 PPD for over 40 years - has been able to cut down/quit since current illness began 10/29/24 Status: Acute Plan - per above - likely requires 1-2 more days of inpatient stay given acute hypoxic respiratory failure Subjective Date Seen: 11/06/24 Interval history: Arabella was admitted to the hospital on 11/05 for dyspnea and hypoxia in the setting of COPD exacerbation. In addition, appeared clinically fluid overloaded and received 1 dose of IV furosemide on admission. Overnight, continue to require low-dose supplemental oxygen. No CO2 retention noted on VBG, TTE scheduled for today. Arabella feels marginally improved, still has wheezing, still requiring supplemental oxygen when sleeping or with activity. Exam Narrative: Exam Narrative: GEN: Alert and oriented, sitting comfortably, no tachypnea at rest HEENT: EOMIs bilaterally, no scleral icterus CV: RRR, No concerning murmurs R: Wheezing throughout bilateral lung bryson with prolonged expiratory phase, no rales Ext: wwp, no concerning edema Skin: No concerning skin lesions or rashes on exposed skin Neuro: Nonfocal Psych: Appropriate Const: Vital Signs, click to edit/add: Vital Signs - 24 hr 11/05/24 09:15 11/05/24 09:32 11/05/24 09:32 Temperature 97.5 F L Pulse Rate Pulse Rate [Pulse Oximeter] Pulse Rate [Right Pulse Oximeter] 107 H Respiratory Rate 34 H Blood Pressure [Le ft Arm] Blood Pressure [Ri ght Arm] Blood Pressure [Ri ght Upper Arm] 155/87 H Pulse Oximetry 85 L 92 92 Oxygen Delivery Me thod Room Air Nasal Cannula Oxygen Flow Rate 4 11/05/24 13:00 11/05/24 13:25 11/05/24 14:27 Temperature Pulse Rate 92 Pulse Rate [Pulse Oximeter] Pulse Rate [Right Pulse Oximeter] 92 Respiratory Rate 28 H Blood Pressure [Le ft Arm] Blood Pressure [Ri ght Arm] Blood Pressure [Ri ght Upper Arm] Pulse Oximetry Oxygen Delivery Me thod Nasal Cannula Oxygen Flow Rate 2 11/05/24 15:10 11/05/24 15:36 11/05/24 15:37 Temperature 97.6 F 97.8 F Pulse Rate Pulse Rate [Pulse Oximeter] 99 96 Pulse Rate [Right Pulse Oximeter] Respiratory Rate 24 20 20 Blood Pressure [Le ft Arm] 167/101 H 129/82 Blood Pressure [Ri ght Arm] Blood Pressure [Ri ght Upper Arm] Pulse Oximetry 90 90 90 Oxygen Delivery Me thod Nasal Cannula Nasal Cannula Nasal Cannula Oxygen Flow Rate 2 3 3 11/05/24 18:04 11/05/24 19:00 11/05/24 20:05 Temperature 98.4 F Pulse Rate Pulse Rate [Pulse Oximeter] 102 H 99 Pulse Rate [Right Pulse Oximeter] Respiratory Rate 28 H Blood Pressure [Le ft Arm] 128/85 128/85 Blood Pressure [Ri ght Arm] Blood Pressure [Ri ght Upper Arm] Pulse Oximetry 89 88 Oxygen Delivery Me thod Nasal Cannula Nasal Cannula Oxygen Flow Rate 4 4 11/05/24 21:17 11/05/24 21:27 11/05/24 22:38 Temperature Pulse Rate Pulse Rate [Pulse Oximeter] 82 82 Pulse Rate [Right Pulse Oximeter] Respiratory Rate 20 20 Blood Pressure [Le ft Arm] Blood Pressure [Ri ght Arm] Blood Pressure [Ri ght Upper Arm] Pulse Oximetry 91 Oxygen Delivery Me thod Nasal Cannula Oxygen Flow Rate 3 11/05/24 22:38 11/05/24 23:00 11/05/24 23:00 Temperature 96.8 F L Pulse Rate 92 Pulse Rate [Pulse Oximeter] 66 Pulse Rate [Right Pulse Oximeter] Respiratory Rate 16 Blood Pressure [Le ft Arm] Blood Pressure [Ri ght Arm] 141/72 H Blood Pressure [Ri ght Upper Arm] Pulse Oximetry 92 92 Oxygen Delivery Me thod Nasal Cannula Nasal Cannula Oxygen Flow Rate 3 3 11/06/24 03:00 11/06/24 06:38 Temperature 97.7 F Pulse Rate 68 Pulse Rate [Pulse Oximeter] 70 Pulse Rate [Right Pulse Oximeter] Respiratory Rate 16 Blood Pressure [Le ft Arm] Blood Pressure [Ri ght Arm] 135/76 Blood Pressure [Ri ght Upper Arm] Pulse Oximetry 89 Oxygen Delivery Me thod Nasal Cannula Oxygen Flow Rate 2 Labs Labs: Laboratory Results - last 24 hr 11/05/24 11/05/24 11/05/24 09:55 10:15 19:51 WBC 14.34 H RBC 4.88 Hgb 15.3 Hct 46.0 MCV 94 MCH 31 MCHC 33 RDW Coeff of Mo 13.0 Plt Count 276 Neut % (Auto) 84.0 H Lymph % (Auto) 6.9 L [place] % (Auto) 6.3 Eos % (Auto) 2.1 Baso % (Auto) 0.2 Neut # (Auto) 12.00 H Lymph # (Auto) 1.00 [place] # (Auto) 0.90 Eos # (Auto) 0.30 Baso # (Auto) 0.00 Abs Immat Gran (auto) 0.10 Imm/Tot Granulo (auto) 0.5 D-Dimer Quant (PE/DVT) < 0.27 VBG pH 7.375 7.51 H VBG pCO2 51 H 39 L VBG pO2 68.6 H 66.0 H VBG HCO3 30 H 31 H Sodium 134 L 131 L Potassium 3.6 3.9 Chloride 96 95 L Carbon Dioxide 30 29 Anion Gap 8 7 BUN 15 17 Creatinine 0.6 0.7 Estimated Creat Clear 49.80 49.80 Estimated GFR 99 95 Glucose 152 H 175 H Lactate 2.0 H 1.9 Calcium 9.6 9.8 Total Bilirubin 1.3 GGT AST 43 H ALT 37 H Alkaline Phosphatase 91 Troponin I 0.04 C-Reactive Protein 1.2 H NT-Pro-B Natriuret Pep 318 H Total Protein 8.0 Albumin 4.5 SARS-CoV-2 (PCR) Negative SARS-CoV-2 Influenza Type A (PCR) Negative PCR FLU A Influenza Type B (PCR) Negative PCR FLU B RSV (PCR) Negative PCR RSV 11/06/24 06:26 WBC 15.26 H RBC 4.49 Hgb 14.1 Hct 42.0 MCV 94 MCH 31 MCHC 34 RDW Coeff of Mo 12.9 Plt Count 233 Neut % (Auto) 90.9 H Lymph % (Auto) 5.7 L [place] % (Auto) 2.7 Eos % (Auto) 0.0 Baso % (Auto) 0.1 Neut # (Auto) 13.90 H Lymph # (Auto) 0.90 [place] # (Auto) 0.40 Eos # (Auto) 0.00 Baso # (Auto) 0.00 Abs Immat Gran (auto) 0.10 Imm/Tot Granulo (auto) 0.6 D-Dimer Quant (PE/DVT) VBG pH 7.478 H VBG pCO2 43 VBG pO2 55.9 H VBG HCO3 32 H Sodium 132 L Potassium 3.6 Chloride 95 L Carbon Dioxide 31 Anion Gap 6 L BUN 20 Creatinine 0.8 Estimated Creat Clear 49.80 Estimated GFR 81 Glucose 155 H Lactate Calcium 9.5 Total Bilirubin 1.2 GGT 28 AST 31 ALT 31 Alkaline Phosphatase 74 Troponin I C-Reactive Protein NT-Pro-B Natriuret Pep Total Protein 7.1 Albumin 4.0 SARS-CoV-2 (PCR) Influenza Type A (PCR) Influenza Type B (PCR) RSV (PCR)
[2024-11-06] MEDS: LOSARTAN POTASSIUM 50 MG TABLET PO (08:46)
--- NOTE | 2024-11-06 09:42 | RESP.RT ---
Patient currently on room air with saturation 88-90%. Lungs are wheezy throughout. Patient is able to cough up secretions on her own with ease and xray without significant atlectasis thus will not need additional airway clearance at this time. Discussed findings with bedside nurse.
--- NOTE | 2024-11-06 15:35 | PC.NURSE ---
end of shift. pt has been very pleasant. no complaints of pain. IV is patent. she has wheezes thought. she has a non productive cough, Ivelisse RT saw her 2 times today. she is up walking ab amado. she said she is breathing better. she has been on RA while awake. she is eating, drinking and voiding., Asked RT about IS or Aerobika. she said that nebulizer help./ S/O is here and is loving and caring.
[2024-11-06] MEDS: AMLODIPINE 10 MG TABLET 5 MG PO (17:48)
[2024-11-06] MEDS: SIMVASTATIN 20 MG TABLET PO (17:49)
[2024-11-06] MEDS: ENOXAPARIN 40 MG/0.4 ML INJ SUBCUT (21:13)
--- NOTE | 2024-11-06 22:50 | PC.NURSE ---
end of shift: Pt. is AOx4. Pt. up to AMB in hallways x2. Pt. moves IND. Pt. denies SOB and pain. Has productive cough w/ sputum.
[2024-11-07] MEDS: IPRAT-ALBUT 0.5-2.5 MG/3 ML NEB 1 NEB IH ×2 (02:07→05:43)
[2024-11-07 02:10] VITALS: BP 122/75; PULSE 65; RESP 20; TEMP 36.6; O2SAT 87
[2024-11-07] MEDS: OMEPRAZOLE 20 MG CAPSULE DR 40 MG PO (05:43)
[2024-11-07 06:00] LABS: HCO3 VBG 32 mmol/L (21-28); PCO2 VBG 41 mmHG (40-50); PO2 VBG 48.7 mmHG (25-47); pH VBG 7.496 (7.32-7.43)
[2024-11-07 06:03] LABS: Hematocrit 41.0 % (33.0-51.0); Hemoglobin* 13.8 gm/dL (12.0-16.0); Immature Granulocytes Pct Auto 0.6 %; Mean Corpuscular HGB Conc 34 gm/dL (32-36); Mean Corpuscular Hemoglobin 31 pg (26-34); Mean Corpuscular Volume 93 fL (80-100); RDW Coefficient of Variation % 13.0 % (11.5-15.5); Red Blood Count 4.39 m/uL (4.00-5.20); White Blood Count* 21.13 K/uL (4.50-11.00)
[2024-11-07 06:06] LABS: Immature Granulocytes Abs Auto 0.10 K/uL (0.00-0.30); Lymphocytes Absolute Auto 1.30 K/uL (0.90-2.90); Slide Review Reflex No
[2024-11-07 06:16] LABS: Chloride* 96 mmol/L (96-114); Potassium* 3.5 mmol/L (3.6-5.1); Sodium* 131 mmol/L (135-149)
[2024-11-07 06:19] LABS: Anion Gap 4 mEq/L (7-15); Blood Urea Nitrogen* 32 mg/dL (7-30); Calcium* 9.2 mg/dL (8.4-10.6); Carbon Dioxide* 31 mmol/L (20-32); Creatinine* 0.9 mg/dL (0.5-1.5); Est. Creatinine Clearance* 49.80; Estimated Glomerular Filt Rate 71 ml/min; Glucose* 129 mg/dL (60-115)
[2024-11-07 07:00] VITALS: BP 112/76; PULSE 57; PULSE 70; RESP 18; TEMP 36.6; O2SAT 93
--- NOTE | 2024-11-07 07:19 | PC.NURSE ---
Pt is alert and oriented x3. Afebrile. Room air. Pt had was placed on 1L O2 once during shift due stats dropping 84-86% after a prolonged coughing fit. The 1L?O2 brought pt back up 93-95% pt was taken off and?has been on room air most of night stating between 87-90%.?Pt denies pain, chest pain, SOB, and N/V. Pt is up ad amado, voiding and tolerating regular diet. ?
[2024-11-07] MEDS: SODIUM CHLORIDE 0.9 % (FLUSH) 10 ML SYRINGE 5 ML IVF (08:34)
[2024-11-07] MEDS: LOSARTAN POTASSIUM 50 MG TABLET PO (08:35)
--- NOTE | 2024-11-07 08:54 | RESP.RT ---
Walking oximetry with patient. Patient maintained saturation of 90% throughout ambulation. No home oxygen required at this time.
--- NOTE | 2024-11-07 09:11 | NUTR.NU ---
RDN with MD consult for CHF and patient on a heart healthy diet. Patient admitted with acute hypoxemic respiratory failure. Medical history includes, but not limited to lung nodule, tobacco abuse, hyperlipidemia, hypertension, cervical cancer (~1992), bilateral osteoarthritis of knees, obesity, COPD, asthma, JEWELS, and heart failure. Current weight 268lbs, height 5ft 5inches, and BMI 44.6 kg/m2. Weight fluctuation noted per weight history likely r/t IV Lasix on admission. Weights per weight history: 280lbs 11/05/24, 283lbs 11/01/24, 282lbs 10/26/24, and 280lbs 09/06/24. RDN will continue to follow weight trends during hospitalization. Per [facility] consultant, patient is consuming 50-75% of most meals recorded since admission. Patient reports a fair appetite with consuming ~1-2 meals/day with snacks prn prior to admit. Patient notes being mindful of portions and food choices with desire for weight loss with a first weight loss goal of ~250lbs. Patient declined additional nutrition education for healthy eating to support weight loss goal at this time. Patient was accepting of nutrition education for heart failure. Nutrition education provided on a low sodium diet related to congestive heart failure.? Verbal and written information provided. Recommend limiting sodium to 2,000 mg per day.? Discussed foods recommended and to avoid.?Also discussed limiting saturated fat intake. Handouts provided from [facility] on heart failure nutrition therapy, sodium content of foods, heart healthy label reading tips, sodium-free flavoring tips and heart healthy cooking and shopping tips.? Patient verbalized understanding.?? RDN's contact information was provided and patient was encouraged to call with questions. RDN will continue to follow prn. ?
--- NOTE | 2024-11-07 10:31 | PM.DS1 ---
DS: Providers Provider Date Seen: 11/07/24 Date of admission: 11/05/24 13:39 Primary care physician: Nancy Nielsen MD Admitting Clinician: Triny Salguero MD Consults: RT, Nutrition Attending Physician on discharge: Triny Salguero MD Date of Discharge: 11/07/24 DS: Diagnosis Discharge Diagnosis (1) Acute hypoxemic respiratory failure: Status: Acute Problem details: - likely 2/2 asthma/COPD exacerbation, also may have an element of JEWELS/CHF - steroids, nebs, supplemental oxygen - RT followed during stay - IV Lasix x1 on 11/05, TTE completed with results below - no arrythmia on telemetry Final Impressions: 1. Normal LV size, normal wall thickness, normal function with an estimated EF of 60 - 65%. 2. Right ventricular cavity size is normal, global systolic RV function is normal. 3. No hemodynamically significant valve disease detected. 4. Normal estimated CVP. Comparison There are no prior studies on this patient for comparison purposes. (2) Tobacco abuse: Status: Acute Problem details: - 1 PPD for over 40 years - has been able to cut down/quit since current illness began 10/29/24 - recommend continued cessation upon discharge DS: Summary Hospital Course Hospital Course: Arabella was admitted to the hospital on 11/05 for dyspnea and hypoxia in the setting of COPD exacerbation. In addition, appeared clinically fluid overloaded and received 1 dose of IV furosemide on admission. Required low dose oxygen supplementation during hospital days 1-2. No CO2 retention noted on VBG, TTE reassuring without evidence of decreased EF or R sided heart disease. Treated COPD exacerbation with steroids, nebs, supplemental oxygen. Significantly improved, requesting discharge home on 11/07. Working on smoking cessation. Arabella is sent home on steroid taper with PCP f/u. Time spent discussing smoking cessation with patient: 3 to 10 minutes Status at Discharge Overall status at discharge: patient is progressing back to baseline Time Spent with Patient Time attestation: Total time spent providing and/or coordinating discharge services: Time spent: Greater than 30 minutes Specific discharge activities: Medication reconciliation, collaboration with multidisciplinary team Exam Narrative: Exam Narrative: GEN: Alert and oriented, speaking in full sentences and sitting comfortably in bed HEENT: Normal external ears, EOMIs bilaterally, no scleral icterus CV: RRR, No concerning murmurs R: Significantly improved air movement previous, wheezing has resolved Ext: wwp, no concerning edema Skin: No concerning skin lesions or rashes on exposed skin Neuro: Nonfocal Psych: Appropriate Const: Vital Signs, click to edit/add: Vital Signs - 24 hr 11/06/24 12:21 11/06/24 15:00 11/06/24 16:51 Temperature 97.8 F Pulse Rate Pulse Rate [Pulse Oximeter] 89 81 Respiratory Rate 18 16 18 Blood Pressure [Ri ght Arm] 128/83 127/89 Pulse Oximetry 89 87 L 87 L Oxygen Delivery Me thod Room Air Room Air Room Air Oxygen Flow Rate 11/06/24 18:27 11/06/24 19:00 11/06/24 21:55 Temperature 98.4 F Pulse Rate 86 Pulse Rate [Pulse Oximeter] 98 Respiratory Rate 18 20 Blood Pressure [Ri ght Arm] 137/81 Pulse Oximetry 89 87 L Oxygen Delivery Me thod Room Air Room Air Oxygen Flow Rate 11/06/24 21:55 11/06/24 21:55 11/06/24 22:44 Temperature 97.6 F Pulse Rate Pulse Rate [Pulse Oximeter] 73 73 63 Respiratory Rate 20 20 20 Blood Pressure [Ri ght Arm] 100/61 120/70 Pulse Oximetry 87 L 88 Oxygen Delivery Me thod Room Air OxyMask Oxygen Flow Rate 1 11/06/24 22:52 11/07/24 02:10 11/07/24 07:00 Temperature 97.8 F Pulse Rate 65 57 L Pulse Rate [Pulse Oximeter] 65 Respiratory Rate 20 Blood Pressure [Ri ght Arm] 122/75 Pulse Oximetry 87 L Oxygen Delivery Me thod Room Air OxyMask Oxygen Flow Rate 11/07/24 07:00 11/07/24 07:00 Temperature 97.9 F Pulse Rate Pulse Rate [Pulse Oximeter] 70 Respiratory Rate 18 18 Blood Pressure [Ri ght Arm] 112/76 Pulse Oximetry 93 93 Oxygen Delivery Me thod Room Air Room Air Oxygen Flow Rate DS: Data Data Completed and Pending Labs on day of discharge: Labs from last 24 hours 11/07/24 05:43 WBC 21.13 H RBC 4.39 Hgb 13.8 Hct 41.0 MCV 93 MCH 31 MCHC 34 RDW Coeff of Mo 13.0 Plt Count 245 Neut % (Auto) 86.3 H Lymph % (Auto) 6.0 L [place] % (Auto) 7.1 Eos % (Auto) 0.0 Baso % (Auto) 0.0 Neut # (Auto) 18.20 H Lymph # (Auto) 1.30 [place] # (Auto) 1.50 H Eos # (Auto) 0.00 Baso # (Auto) 0.00 Abs Immat Gran (auto) 0.10 Imm/Tot Granulo (auto) 0.6 VBG pH 7.496 H VBG pCO2 41 VBG pO2 48.7 H VBG HCO3 32 H Sodium 131 L Potassium 3.5 L Chloride 96 Carbon Dioxide 31 Anion Gap 4 L BUN 32 H Creatinine 0.9 Estimated Creat Clear 49.80 Estimated GFR 71 Glucose 129 H Calcium 9.2 Discharge Plan Discharge Disposition: Home, Self-Care Date of Admission: 11/05/24 13:39 Attending Provider on Discharge: Triny Salguero Primary Care Provider: Nancy Nielsen Condition: Improved Anticipated Discharge Date/Time: 11/07/24 09:03 Discharge Medications: New prednisone 10 mg tablet 10 mg PO DIRECTED Qty: 47 0RF Rx Instructions: 4 tabs po x4d, then 3 tabs po x3d, then 2 tabs po x3d, then 1 tab po x7d, then stop ipratropium-albuterol 0.5 mg-3 mg(2.5 mg base)/3 mL Solution For Nebulization 3 ml inhalation Q4H PRNQty: 180 0RF albuterol sulfate 90 mcg/actuation HFA aerosol inhaler 2 puff inhalation Q6H PRN (Reason: shortness of breath or wheezing) Qty: 8.5 2RF Continued albuterol sulfate 90 mcg/actuation HFA aerosol inhaler 2 puff inhalation Q4H PRN hydrochlorothiazide 25 mg tablet 25 mg PO QPM omeprazole 20 mg capsule,delayed release(DR/EC) 20 mg PO QPM simvastatin 20 mg tablet 20 mg PO QPM amlodipine 10 mg tablet 5 mg PO QPM losartan 50 mg tablet 50 mg PO QDAY Patient Comments: TAKE ONE TABLET BY MOUTH EVERY DAY ipratropium-albuterol 0.5 mg-3 mg(2.5 mg base)/3 mL solution for nebulization 3 ml inhalation Q4-6H PRN (Reason: shortness of breath) Qty: 90 0RF budesonide-formoterol 80-4.5 mcg/actuation HFA aerosol inhaler 2 puff inhalation BID Qty: 10.2 2RF albuterol sulfate 2.5 mg /3 mL (0.083 %) solution for nebulization 2.5 mg inhalation Q6H Qty: 75 2RF Discharge Orders: Discharge Order (Routine); Ordered 11/07/24 Ordered By: Triny Salguero Patient Education: Albuterol (By breathing) (ProAir, AccuNeb, Proventil, Proventil..., Ipratropium (By breathing) (Atrovent HFA), Prednisolone (By mouth), COPD (Chronic Obstructive Pulmonary Disease) (DC) Additional Instructions: At vee: - new inhaler, refill medication for nebulizer, and Prednisone - start the Symbicort when you're on the last few days of Prednisone treatment Continue the rest of your home meds and keep up the good work with quitting smoking! See Dr. Nielsen as scheduled on 11/26. Activity Level: No strenuous activity Discharge Diet: Regular Follow Up Appointments: Nancy Nielsen MD [Primary Care Provider, Family Practice] Forms: Patient Belongings, [facility] Info Instructions
--- NOTE | 2024-11-07 10:32 | PC.NURSE ---
Pt doing well this morning. VSS. Denies pain. Sating well on room air. Ambulating independently with minimal shortness of breath. Pt belongings form and discharge instructions reviewed and signed. No further questions or concerns at this time. Pt discharged home via at 1030
== END 2024-11-07 10:30 | disposition home or self-care (01) | DRG 190 ==
LOC: ED 12:48 → MEDSURG 13:16
PROVIDERS: Family Medicine; Admitting Provider Family Medicine; Emergency Provider Family Medicine; PCP Family Medicine; Visit Provider Family Medicine
DX: J44.1 Chronic obstructive pulmonary disease with (acute) exacerbation (principal); J96.01 Acute respiratory failure with hypoxia; E66.01 Morbid (severe) obesity due to excess calories; I10 Essential (primary) hypertension; J45.909 Unspecified asthma, uncomplicated; R91.1 Solitary pulmonary nodule; F17.210 Nicotine dependence, cigarettes, uncomplicated; Z96.641 Presence of right artificial hip joint; E78.5 Hyperlipidemia, unspecified; Z96.652 Presence of left artificial knee joint
CPT/HCPCS: 36415; 71045; 80048; 80053; 82803; 82977; 83605; 83880; 84484; 85025; 85379; 86140; 87631; 93005; 93306; 94640; 94761; 99284; 99285; A9270; J1650; J1938; J2919; J7512

== ENCOUNTER 2024-11-30 08:21 | Inpatient (IN) | payer MEDICARE, BC, SELFPAY ==
[2024-11-30] VITALS (30 sets, daily range): BP systolic 112–171; BP diastolic 70–100; PULSE 77–117; RESP 20–32; TEMP 36.3–36.8; O2SAT 87–95; BMI 46.6; BMI 46.2
--- OUTSIDE RECORDS SUMMARY | 2024-11-30 08:23 | XMS_ITS | Clinical Summary ---
Author Organization [facility] Address [address] [place] [id number] Care Team Providers Care Manager Poker Name Role Phone Nancy Nielsen MD Primary [...] TWO TIMES DAILY 80 g 025 Active albuterol-ipratro pium (DUONEB) (2.5-0.5 mg) in 3 mL NEBULIZATION solution Inhale 3 mL by mouth 4 times daily if needed for Shortness Of Breath or Wheezing. 025 Active budesonide-formot Enrique (SYMBICORT,BREYNA ) 80-4.5 mcg/actuation (80-4.5 mcg each actuation) inhalerIndication s:COPD mixed type (HC) Inhale 2 puffs twice daily and 1-2 puffs every 4 hours as needed for asthma exacerbations. Max 12 puffs per day. 3 Each 3 025 Active triamcinolone 0.025 % ointmentIndicatio ns:Dermatitis Apply topically to affected area(s) two times daily. 80 g 025 2024 Discontinued triamcinolone 0.025 % ointmentIndicatio ns:Dermatitis APPLY TOPICALLY TO AFFECTED AREAS TWO TIMES DAILY 80 g 025 2024 Discontinued Symbicort 80-4.5 mcg/actuation (80-4.5 mcg each actuation) inhaler Inhale 2 Puffs by mouth two times daily. 2024 Discontinued(* Availability/F ormulary change/Cost of medication) budesonide-formot Enrique (SYMBICORT,BREYNA ) 80-4.5 mcg/actuation (80-4.5 mcg each actuation) inhalerIndication s:COPD mixed type (HC) Inhale 2 puffs twice daily and 1-2 puffs every 4 hours as needed for asthma exacerbations. Max 12 puffs per day. 1 Each 025 2024 Discontinued(* Availability/F ormulary change/Cost of medication) fluticasone furoate-vilantero L (BREO ELLIPTA) 100-25 mcg/dose inhalation powderIndications :COPD mixed type (HC) Inhale 1 Puff by mouth once daily. Rinse mouth after use 180 Each 3 025 2024 Discontinued(* Availability/F ormulary change/Cost of medication) Active Problems Problem Noted Date Diagnosed Date Acute exacerbation of chronic obstructive pulmon cathi disease 11/26/2024 Lung nodules 09/20/2023 Overview (09/30/2023): 09/20/23- RAD 4A with scattered linear opacities. There is one area that is 9mm in the EPHRAIM. These may be related to fibrosis. Pt referred to [facility]od[facility] for further eval. Obesity, morbid 09/19/2023 Angioedema 01/16/2021 Status post right hip replacement 01/16/2021 Routine adult health maintenance 11/28/2015 Overview (11/28/2015): Colonoscopy 11/2015 hyperplastic polyps repeat in 10 years Hypertension 10/13/2010 Hyperlipidemia 10/13/2010 Tobacco abuse 10/13/2010 Encounters Date Type Department Care Team Description 11/27/[address] [facility] [address] [place] [address] Nancy iNelsen MD Refill Request (Budesonide-Formote rol 80-4.5 aero ) 11/26/2024 7:00 AM CDT Office Visit [facility] [address] [place] [address] Nancy Nielsen MD Hospital F/U (Discharged twp weeks ago, was in for 2 days. Breathing issues, possibly related to COPD); Medication Management (Has medication from outside to be reconciled but unsure if she should continue.) 11/26/2024 E-Consult [facility] [address] [place] [address] Monica Rodriguez, PharmD 11/26/2024 Travel 11/22/[address] [facility] [address] [place] [address] Nancy Nielsen MD Refill Request (Triamcinolone) 11/21/2024 Travel 11/06/2024 4:00 PM CDT Ancillary Procedure [facility] [address] [facility] [place] [id number] 11/05/2024 Orders Only [facility] Scanner 1 scan: (1-Ord) [place], XR CHEST 1V PORTABLE, 11/05/2024 11/01/2024 Orders Only [facility] Scanner 1 scan: (1-Ord) [facility], XR CHEST, 11/01/2024 10/30/[address] [facility] [address] [place] [address] Nancy Nielsen MD Refill Request (Triamcinolone) 10/03/2024 9:40 AM CDT Office Visit [facility] [address] [place] [address] Nancy Nielsen MD Medication Management (Refills/) 10/02/2024 10:15 AM CDT Orders Only [facility] [address] [place] [address] Lab, [facility] 10/02/2024 Travel 09/28/2024 Travel 09/27/2024 Travel 09/03/[address] 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 Gender Identity Not on file Sexual Orientation Not on file Obstetrics History Last Filed Vital Signs Vital Sign Reading Time Taken Comments Blood Pressure 123/82 11/26/2024 7:03 AM CDT Pulse 64 11/26/2024 7:03 AM CDT Temperature 36.4 C (97.5 F) 10/05/2023 11:25 AM CDT Respiratory Rate 16 10/05/2023 11:2 5 AM CDT Oxygen Saturation 97% 11/26/2024 7:03 AM CDT Inhaled Oxygen Concentration - - Weight 128.1 kg (282 lb 6.4 oz) 11/26/2024 7:03 AM CDT Height 165.1 cm (5' 5) 10/03/2024 9:37 AM CDT Body Mass Index 46.99 10/03/2024 9:37 AM CDT Plan of Treatment Health Maintenance Due Date Last Done Comments Medicare Wellness for age 65+ 2023 Depression screening for age 12+ 09/19/2024 09/20/2023, 09/19/2023, 10/08/2020, Additional history exists COVID-19 vaccine series (2024- season) 2024 12/11/2021, 08/24/2021, 08/24/2021, Additional history exists Influenza Vaccine (#1) 2024 [...] Procedure Name Priority Date/Time Associated Diagnosis Comments ECHO TTE COMPLETE WO CONTRAST Routine 11/06/2024 1:41 PM CDT CHF (congestive heart failure) (HC) SCAN-RADIOLOGY REPORT 11/05/2024 12:00 AM CDT SCAN-RADIOLOGY REPORT 11/01/2024 12:00 AM CDT BASIC METABOLIC PANEL Routine 10/02/2024 10:04 AM CDT Hypertension LIPID PANEL W REFLEX MEASURED LDL Routine 10/02/2024 10:04 AM CDT Hyperlipidemia, unspecified hyperlipidemia type XR MAMMO BILAT SCREENING Routine 05/01/2024 11:40 AM COMPOSITE WORKER Visit for screening mammogram CT CHEST WO Routine 01/25/2024 11:30 AM COMPOSITE WORKER Lung nodules XR DXA BONE DENSITY 2 SITES AXIAL Routine 09/20/2023 1:31 PM CDT Postmenopausal ANTI HCV Routine 12/05/2019 9:13 AM CDT Need for hepatitis C screening test COLONOSCOPY 11/26/2015 8:54 AM CDT from Last 3 Months or Most Recently Relevant to Health Maintenance Results * ECHO TTE COMPLETE WO CONTRAST (11/06/2024 1:41 PM CDT) AORTIC VALVE MEAN PG 8 mmHg EJECTION FRACTION 71 % LVEDD 4.4 cm EJECTION FRACTION 60 - 65% Anatomical Region Laterality Modality Ultrasound 11/06/2024 1:20 PM CDT Narrative 11/06/2024 2:41 PM CDT ECHOCARDIOGRAM CAIT HUGHES : 1960 64 years Study Date: 11/06/2024 1:20:48 PM Gender: F BP: 130/78 mmHg Height: 165.00 cm BSA: 2.30 m Weight: 129.00 kg Tech: DAYSI Referring MD: TRINY SALGUERO Site: [facility] Reading Location: Mobile- Patient Location: Inpatient. Procedure: 2D, Color Doppler and Spectral Doppler. Indication for study: CHF Cardiac Rhythm: Irregular.Study quality: Good. Final Impressions: 1. Normal LV size, normal wall thickness, normal function with an estimated EF of 60 - 65%. 2. Right ventricular cavity size is normal, global systolic RV function is normal. 3. No hemodynamically significant valve disease detected. 4. Normal estimated CVP. Comparison There are no prior studies on this patient for comparison purposes. Chamber Sizes and Function Normal left ventricular size, normal wall thickness, normal global systolic function with an estimated EF of 60 - 65%. No resting regional wall motion abnormality visualized. Left atrial size is normal. Left atrial pressure is normal. Right ventricular cavity size is normal, global systolic RV function is normal. RV wall thickness is normal. The right atrium is normal. Right atrial volume index is 14 ml/m . Right atrial area is 13 cm . The pulmonary artery is of normal size and origin. The sinus of Valsalva is normal sized. The ascending aorta is borderline. Valves, RV Pressures and Diastolic Function The aortic valve is trileaflet and sclerotic, no stenosis and no regurgitation. The mitral valve is normal in structure, no mitral regurgitation. Normal diastolic function. The tricuspid valve is normal in structure, regurgitation is not evident tricuspid regurgitation. The pulmonic valve is normal. No pulmonary regurgitation. Masses, Effusion, Shunts There is no pericardial effusion. The inferior vena cava is normal sized, respiratory size variation greater than 50%. No left to right shunting was detected by limited color flow Doppler interrogation of the interatrial septum. MEASUREMENTS AND CALCULATIONS 2-D Measurements and LV Function: LVID (d) 4.4 cm LV FS% (2D) 42 % LVID (s) 2.5 cm LVOT diameter 2.3 cm IVS (d) 1.0 cm HR 74 bpm LVPW (d) 1.1 cm LA Vol index 27 ml/m2 Ao Sinus 3.5 cm RA Vol index 14 ml/m2 Ao Sinus ULN 3.8 cm * RA area 13 cm Asc Ao 3.9 cm RV Basal Diam 3.2 cm Asc Ao ULN 3.9 cm * RV Mid Diam 2.3 cm LA 4.0 cm * Input BSA outside of range, reported values correspond to BSA = 1.9 Diastology: Mitral Tissue Doppler Pulmonary veins E Peak 1.1 m/s e', Septum 0.11 m/s Pulm s 64.3 cm/s A Peak 1.3 m/s e', Lateral 0.11 m/s Pulm d 52.5 cm/s E/A 0.9 E/e' Average 10.22 Pulm s/d ratio 1.22 DT 283 msec Aortic Valve: Vmax 1.9 m/s VIDYA (V) 2.57 cm VTI 0.41 m VIDYA (I) 2.74 cm LVOT V max 1.2 m/s Max PG 15 mmHg LVOT VTI 0.27 m Mean PG 8 mmHg SV 111 ml Dim Index 0.67 SV index 49 ml/m CO 8.2 l/min CI 3.6 l/min/m Mitral Valve: MVA 2.7 cm MV P 1/2 82 msec Tricuspid Valve and estimated PA pressures: TAPSE 2.8 cm Pulmonic Valve: PV Vmax 1.4 m/s . This study was interpreted by an [facility] accredited facility. CC: HIM (med records) [facility], Med/Surg - IP [facility]. Final Procedure Note Kranthi Yanes MD - 11/06/2024 ECHOCARDIOGRAM CAIT HUGHES : 1960 64 years Study Date: 11/06/2024 1:20:48 PM Gender: F BP: 130/78 mmHg Height: 165.00 cm BSA: 2.30 m Weight: 129.00 kg Tech: NWA Referring MD: TRINY SALGUERO Site: [facility] Reading Location: Mobile-IP Patient Location: Inpatient. Procedure: 2D, Color Doppler and Spectral Doppler. Indication for study: CHF Cardiac Rhythm: Irregular.Study quality: Good. Final Impressions: 1. Normal LV size, normal wall thickness, normal function with anestimated EF of 60 - 65%. 2. Right ventricular cavity size is normal, global systolic RV functionis normal. 3. No hemodynamically significant valve disease detected. 4. Normal estimated CVP. Comparison There are no prior studies on this patient for comparison purposes. Chamber Sizes and Function Normal left ventricular size, normal wall thickness, normal globalsystolic function with an estimated EF of 60 - 65%. No resting regionalwall motion abnormality visualized. Left atrial size is normal. Leftatrial pressure is normal. Right ventricular cavity size is normal, globalsystolic RV function is normal. RV wall thickness is normal. The rightatrium is normal. Right atrial volume index is 14 ml/m . Right atrialarea is 13 cm . The pulmonary artery is of normal size and origin. Thesinus of Valsalva is normal sized. The ascending aorta is borderline. Valves, RV Pressures and Diastolic Function The aortic valve is trileaflet and sclerotic, no stenosis and noregurgitation. The mitral valve is normal in structure, no mitralregurgitation. Normal diastolic function. The tricuspid valve is normal instructure, regurgitation is not evident tricuspid regurgitation. Thepulmonic valve is normal. No pulmonary regurgitation. Masses, Effusion, Shunts There is no pericardial effusion. The inferior vena cava is normal sized,respiratory size variation greater than 50%. No left to right shunting wasdetected by limited color flow Doppler interrogation of the interatrialseptum. MEASUREMENTS AND CALCULATIONS 2-D Measurements and LV Function: LVID (d) 4.4 cm LV FS% (2D) 42% LVID (s) 2.5 cm LVOT diameter2.3 cm IVS (d) 1.0 cm HR 74bpm LVPW (d) 1.1 cm LA Vol index 27ml/m2 Ao Sinus 3.5 cm RA Vol index 14ml/m2 Ao Sinus ULN 3.8 cm * RA area 13cm Asc Ao 3.9 cm RV Basal Diam3.2 cm Asc Ao ULN 3.9 cm * RV Mid Diam2.3 cm LA 4.0 cm * Input BSA outside of range, reported values correspond to BSA = 1.9 Diastology: Mitral Tissue Doppler Pulmonary veins E Peak 1.1 m/s e', Septum 0.11 m/s Pulm s 64.3 cm/s A Peak 1.3 m/s e', Lateral 0.11 m/s Pulm d 52.5 cm/s E/A 0.9 E/e' Average 10.22 Pulm s/d ratio 1.22 DT 283 msec Aortic Valve: Vmax 1.9 m/s VIDYA (V) 2.57 cm VTI 0.41 m VIDYA (I) 2.74 cm LVOT V max 1.2 m/s Max PG 15 mmHg LVOT VTI 0.27 m Mean PG 8 mmHg SV 111 ml Dim Index 0.67 SV index 49 ml/m CO 8.2 l/min CI 3.6 l/min/m Mitral Valve: MVA 2.7 cm MV P 1/2 82 msec Tricuspid Valve and estimated PA pressures: TAPSE 2.8 cm Pulmonic Valve: PV Vmax 1.4 m/s . This study was interpreted by an [facility] accredited facility. CC: HIM (med records) [facility], Med/Surg - IP [facility]. Final us Triny Salguero MD ECHO ORD Final Resu lt * SCAN-RADIOLOGY REPORT (11/05/2024 12:00 AM CDT) Only the most recent of2 resultswithin the time period is included. Anatomical Region Laterality Modality Other us Scanner OTHER Final Result * (ABNORMAL) LIPID PANEL W REFLEX MEASURED LDL (10/02/2024 10:04 AM CDT) CHOLESTEROL, TOTAL 184 <200 mg/dL [facility] HDL CHOLESTEROL 60 > OR = 50 mg/dL [facility] TRIGLYCERIDES 132 <150 mg/dL [facility] LDL-CHOLESTEROL 101(H) mg/dL (calc) [facility] Comment: Reference range: <100 Desirable range <100 mg/dL for primary prevention; <70 mg/dL for patients with CHD or diabetic patients with > or = 2 CHD risk factors. LDL-C is now calculated using the Niranjan calculation, which is a validated novel method providing better accuracy than the Friedewald equation in the estimation of LDL-C. Arron SS et al. ANDRIY. 2013;310(19): 6097-9759 (http://education.HALGI/faq/OTG333) CHOL/HDLC RATIO 3.1 <5.0 (calc) [facility] NON HDL CHOLESTEROL 124 <130 mg/dL (calc) [facility] Comment: For patients with diabetes plus 1 major ASCVD risk factor, treating to a non-HDL-C goal of <100 mg/dL (LDL-C of <70 mg/dL) is considered a therapeutic option. Blood BLOOD SPECIMEN / Unknown 10/02/2024 10:04 AM CDT 10/02/2024 10:05 AM CDT Nancy Nielsen MD CHEMISTRY Final R esult [facility] [address] [place] [address], [place] [phone] [facility] [address] [place] [address] * BASIC METABOLIC PANEL (10/02/2024 10:04 AM CDT) GLUCOSE 98 65 - 99 mg/dL [facility] Comment: Fasting reference interval UREA NITROGEN (BUN) [...] [place] CALCIUM 9.4 8.6 - 10.4 mg/dL [facility] Blood BLOOD SPECIMEN / Unknown 10/02/2024 10:04 AM CDT 10/02/2024 10:05 AM CDT Nancy Nielsen MD CHEMISTRY Final R esult [facility] [address] [place] [address], [facility] [address] [place] [address] * XR MAMMO BILAT SCREENING (05/01/2024 11:40 AM COMPOSITE WORKER) Anatomical Region Laterality Modality BREASTS, Breast Left, Breast Right Bilateral Mammography Impressions 05/07/2024 3:21 PM COMPOSITE WORKER There is no radiographic evidence for malignancy. Recommend annual mammograms. MAMMOGRAM ASSESSMENT: ACR 1 Negative PATIENTS: You will also receive a letter with your examination results in an easy to read format. If you have questions about your results, please contact your referring provider. Narrative 05/07/2024 3:21 PM COMPOSITE WORKER For Patients: As a result of the Cures Act, medical imaging exams and procedure reports are released immediately into your electronic medical record. You may view this report before your referring provider. If you have questions, please contact your health care provider. XR MAMMO BILAT SCREENING [652139] CLINICAL HISTORY: This is an asymptomatic 63 [...] * CT CHEST WO (01/25/2024 11:30 AM COMPOSITE WORKER) Anatomical Region Laterality Modality CHEST, THORAX, HEART Computed To mography 01/25/2024 7:03 PM COMPOSITE WORKER Impressions 01/25/2024 7:03 PM COMPOSITE WORKER Stable reticular airspace opacities within both lungs, [...] PM (Electronically Signed) Narrative 01/25/2024 7:03 PM COMPOSITE WORKER For Patients: As a result of the [...] XR DXA BONE DENSITY 2 SITES AXIAL [20367.1] (09/20/2023 1:31 PM CDT) Anatomical Region Laterality [...] to assess therapeutic efficacy. Dianne Fuentes PA-C [facility] 09/27/2023 Narrative 09/27/2023 2:00 PM CDT For Patients: Results are automatically released to your [facility] ([employer]) account once available, in compliance with federal regulations. This means that you may see your results before your provider has had a chance to review them. Please allow 2-3 business days for your provider to comment on the results. XR DXA Bone Mineral Density (BMD) EXAM LOCATION: [address] [address] PATIENT NAME: Cait Hughes DATE OF : 1960 EXAM DATE: 09/20/2023 [...] two scanners are made by the same program management intern. PROCEDURE: Dual-energy x-ray absorptiometry performed with routine [...] ANTI HCV (12/05/2019 9:13 AM CDT) Pathologist [facility] HEPATITIS C ANTIBODY Non-React noemi Non-React noemi 12/05/2019 6:11 PM CDT [facility] Comment:Antibodies to HCV no t detected; does not exclude the possibility of exposure to HCV. Blood BLOOD SPECIMEN / Unknown Butterfly / Unknown 12/05/2019 9:13 AM CDT 12/05/2019 9:13 AM CDT Nancy Nielsen MD SEND OUTS Final R esult [facility] [address] [place] [address], [place] * COLONOSCOPY (11/26/2015 8:54 AM CDT) 11/26/2015 8:54 AM CDT Narrative 11/26/2015 8:54 AM CDT Patient Name: Cait Hughes Procedure Date: 11/26/2015 Gender: Female Date of [...] adequate candidate for conscious sedation. The PCF-Q290AL [id number] was passed through the anus and advanced [...] 8:54 AM Procedure Code(s): --- Professional --- 39106, Colonoscopy, flexible; with removal of tumor(s), polyp(s), or other lesion(s) by snare technique Diagnosis Code(s): --- Professional --- Z12.11, Encounter for screening for malignant neoplasm of colon K62.1, Rectal polyp K57.30, Diverticulosis of large intestine without perforation or abscess without bleeding CPT copyright 2015 [employer]. All rights reserved. The codes documented in this report are preliminary and upon medical record coder review may be revised to meet current compliance requirements. Scope In: 9:36:51 AM Scope Withdrawal Time 0 hours 13 minutes 31 seconds Scope Out: 10:05:21 AM Procedure Note Arron Brito MD - 11/26/2015 10:19 AM CDT Patient Name: Cait Hughes Procedure Date: 11/26/2015 Gender: Female Date of [...] adequate candidate for conscious sedation. The PCF-Q290AL [id number] was passed through the anus and advanced [...] 8:54 AM Procedure Code(s): --- Professional --- 67161, Colonoscopy, flexible; with removalof tumor(s), polyp(s), or other lesion(s) bysnare technique Diagnosis Code(s): --- Professional --- Z12.11, Encounter for screening formalignant neoplasm of colon K62.1, Rectal polyp K57.30, Diverticulosis of large intestine without perforation or abscess withoutbleeding CPT copyright 2015 [employer]. All rights reserved. The codes documented in this report are preliminary and upon medical record coder reviewmay be revised to meet current compliance requirements. 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
--- NOTE | 2024-11-30 08:37 | CRLHL7_ITS ---
For Patients: As a result of the Century Cures Act, medical imaging exams and procedure reports are released immediately into your electronic medical record. You may view this report before your referring provider. If you have questions, please contact your health care provider. INDICATION: Chest pain. TECHNIQUE: Chest 1 views. COMPARISON: X-ray chest October 2024 FINDINGS/IMPRESSION: Stable linear airspace opacity in the right mid zone, likely atelectasis/scarring. No new pulmonary opacity or consolidation. No effusion or pneumothorax. Cardiac size is within normal limit without pulmonary edema. Dictated by Allie Walker MD @ 11/30/2024 9:35:48 AM (Electronically Signed)
--- NOTE | 2024-11-30 08:39 | ED_ITS ---
HPI - General Adult General Chief complaint: Shortness of Breath/Dyspnea Stated complaint: difficulty breathing Time Seen by Provider: 11/30/24 08:33 History of Present Illness HPI narrative: Patient is a 64-year-old woman who was discharged from the hospital 3 weeks ago following a COPD exacerbation. She states that she was doing reasonably well and not smoking. She has been using her nebulizer treatments but over the last 24 hours has had progressive cough shortness of breath and dyspnea. As result, patient presents the emergency room hypoxic and tachypneic today. She has scribes no fevers no chills no night sweats. No other significant symptoms. Related Data Home Medications ?Medication ?Instructions ?Recorded ?Confirmed albuterol sulfate 90 mcg/actuation 2 puff inhalation Q 4H PRN 11/03/21 11/30/24 aerosol inhaler amlodipine 10 mg tablet 5 mg PO QPM 11/03/21 5 hydrochlorothiazide 25 mg tablet 25 mg PO QPM 11/03/21 11/30/24 omeprazole 20 mg capsule,delayed 20 mg PO QPM 11/03/21 11/30/24 release simvastatin 20 mg tablet 20 mg PO QPM 11/03/21 losartan 50 mg tablet 50 mg PO QDAY 11/04/2111/30 Previous Rx's ?Medication ?Instructions ?Recorded ipratropium 0.5 mg-albuterol 3 mg 3 ml inhalation Q4-6 H PRN 10/26/24 (2.5 mg base)/3 mL nebulization shortness of breath #9 0 mL soln albuterol sulfate 2.5 mg/3 mL 2.5 mg (3 mL) inhalation Q6H #75 mL 11/01/24 (0.083 %) solution for nebulization budesonide-formoterol HFA 80 2 puff inhalation BID #10 .2 grams 11/01/24 mcg-4.5 mcg/actuation aerosol inhaler albuterol sulfate 90 mcg/actuation 2 puff inhalation Q 6H PRN 11/07/24 aerosol inhaler shortness of breath or wheez ing #8.5 grams ipratropium 0.5 mg-albuterol 3 mg 3 ml inhalation Q4H PRN #180 mL 11/07/24 (2.5 mg base)/3 mL nebulization soln prednisone 10 mg tablet 10 mg PO DIRECTED #47 tab s 11/07/24 Allergies Allergy/AdvReac Type Severity Reaction Status Date / Time lisinopril Allergy Intermediate Lip Verified 11/30/24 08:29 swelling metoprolol AdvReac Verified 11/30/24 08:29 Review of Systems Status of ROS: Reports: 10 or more systems reviewed and unremarkable except as noted in History and below [facility] Medical History Lung nodule (09/20/23) ?R91.1 - Solitary pulmonary nodule (ICD-10) Obesity, morbid, BMI 40.0-49.9 ?E66.01 - Morbid (severe) obesity due to excess calories (ICD-10) Tobacco abuse ?Z72.0 - Tobacco use (ICD-10) Hyperlipidemia ?E78.5 - Hyperlipidemia, unspecified (ICD-10) Hypertension affecting ?O16.9 - Unspecified maternal hypertension, unspecified trimester (ICD-10) Asthma ?J45.909 - Unspecified asthma, uncomplicated (ICD-10) Hypertension ?I10 - Essential (primary) hypertension (ICD-10) Osteoarthritis of knees, bilateral ?M17.0 - Bilateral primary osteoarthritis of knee (ICD-10) Cervical cancer (~1992) ?C53.9 - Malignant neoplasm of cervix uteri, unspecified (ICD-10) Angioedema ?T78.3XXA - Angioneurotic edema, initial encounter (ICD-10) Surgical History 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 History of ETOH overuse, currently drinking very little. Quit smoking during recent illness (10/28/24) Desires full resuscitation and intubation if needed, but would not want to be kept alive artificially. What is your current living situation?: I presently have a place to live Problems where you live: no known problems Problems where you live details: NA In the past 12 months, utilities in danger of being shut off: no In past 12 months, lack of transportation kept you from medical appts, meetings, work, or getting things needed for daily living: no In the past 12 mos, have been you worried that your food would run out before you had money to buy more?: never true In the past 12 mos, the food you bought just didn't last and you didn't have money to buy more?: never true Highest level of school completed/degree received: high school graduate Smoking Status: Current every day smoker What tobacco products do you use: cigarettes Smoking packs per day: 1 Smoking cigarettes per day: 20.0 Years smoked: 40 Smoking pack-years: 40.00 Do you use any of these nicotine containing products: None Second hand tobacco smoke exposure: No How often do you have a drink containing alcohol: 2-3 times a week Alcohol type: beer Alcohol type details: bloody placido How many standard drinks containing alcohol do you have on a typical day: 3 or 4 How often do you have six or more drinks on one occasion: Never AUDIT-C Alcohol total score: 4 Non-prescribed substance use: denies use Caffeine: Yes (coffee, 2 cups/am) How often does anyone, including family, friends and others, physically hurt you : never How often does anyone, including family, friends and others, insult or talk down to you: never How often does anyone, including family, friends and others, threaten you with harm: never How often does anyone, including family, friends and others, scream or curse at you: never service: No Exam Narrative: Exam Narrative: EXAM GENERAL: Patient appears uncomfortable and tachypneic. EYES: No scleral icterus. LYMPH: No supraclavicular or cervical lymphadenopathy. SKIN: Visible skin seen during exam normal or with benign process only. EXT: No dependent lower extremity pedal edema. HEART: Regular rate and rhythm with no murmurs, rubs, or gallops. LUNGS: Coarse expiratory wheezes noted bilaterally with decreased air movement. ABD: Soft, non tender, non distended. PSYCH: Good eye contact, speech is not pressured. Const: Vital Signs, click to edit/add: Vital Signs - 24 hr 11/30/24 08:25 11/30/24 08:38 11/30/24 08:39 Temperature 97.4 F L Pulse Rate 114 H 107 H Pulse Rate [Right Pulse Oximeter] 112 H Respiratory Rate 32 H Blood Pressure 156/90 H Blood Pressure [Ri ght Forearm] 171/98 H Pulse Oximetry 87 L 89 89 Oxygen Delivery Me thod Room Air Room Air Room Air Oxygen Flow Rate 11/30/24 08:45 11/30/24 08:47 11/30/24 08:51 Temperature Pulse Rate 106 H 104 H Pulse Rate [Right Pulse Oximeter] Respiratory Rate 28 H Blood Pressure 142/100 H Blood Pressure [Ri ght Forearm] Pulse Oximetry 92 95 93 Oxygen Delivery Me thod Nasal Cannula Nasal Cannula Nasal Cannula Oxygen Flow Rate 3 3 3 11/30/24 08:58 11/30/24 09:00 11/30/24 09:02 Temperature Pulse Rate 105 H 99 83 Pulse Rate [Right Pulse Oximeter] Respiratory Rate Blood Pressure 125/83 137/77 Blood Pressure [Ri ght Forearm] Pulse Oximetry 91 91 91 Oxygen Delivery Me thod Nasal Cannula Oxygen Flow Rate 3 11/30/24 09:03 11/30/24 09:18 11/30/24 09:30 Temperature Pulse Rate 96 98 95 Pulse Rate [Right Pulse Oximeter] Respiratory Rate Blood Pressure Blood Pressure [Ri ght Forearm] Pulse Oximetry 90 90 91 Oxygen Delivery Me thod Nasal Cannula Oxygen Flow Rate 3 11/30/24 09:32 11/30/24 09:45 11/30/24 09:47 Temperature Pulse Rate 99 91 92 Pulse Rate [Right Pulse Oximeter] Respiratory Rate 24 Blood Pressure 125/74 138/71 Blood Pressure [Ri ght Forearm] Pulse Oximetry 92 92 92 Oxygen Delivery Me thod Nasal Cannula Nasal Cannula Nasal Cannula Oxygen Flow Rate 4 4 4 11/30/24 10:00 11/30/24 10:02 Temperature Pulse Rate 97 96 Pulse Rate [Right Pulse Oximeter] Respiratory Rate 22 Blood Pressure 112/78 Blood Pressure [Ri ght Forearm] Pulse Oximetry 94 93 Oxygen Delivery Me thod Nasal Cannula Nasal Cannula Oxygen Flow Rate 4 4 Course Course ED Course: We will place on supplemental oxygen provide a DuoNeb. I did send off workup with CBC comprehensive metabolic panel troponin D-dimer lactate procalcitonin chest x-ray EKG blood cultures viral swab. Vital Signs Vital signs: Initial Vital Signs Temperature 97.4 F L 11/30/24 08:25 Temperature Source Temporal Artery Scan 11/30/24 08:25 Pulse Rate 112 H 11/30/24 08:25 Pulse Rhythm Regular 11/30/24 08:25 Pulse Strength 3+ Normal 11/30/24 08:25 Respiratory Rate 32 H 11/30/24 08:25 Blood Pressure 171/98 H 11/30/24 08:25 Blood Pressure Mean 122 H 11/30/24 08:25 Blood Pressure Position Sitting 11/30/24 08:25 Pulse Oximetry 87 L 11/30/24 08:25 Oxygen Delivery Method Room Air 11/30/24 08:25 Vital Signs Temperature 97.4 F L 11/30/24 08:25 Pulse Rate 112 H 11/30/24 08:25 Respiratory Rate 32 H 11/30/24 08:25 Blood Pressure 171/98 H 11/30/24 08:25 Pulse Oximetry 87 L 11/30/24 08:25 Oxygen Delivery Method Room Air 11/30/24 08:25 Temperature 97.4 F L 11/30/24 08:25 Pulse Rate 96 11/30/24 10:02 Respiratory Rate 22 11/30/24 10:02 Blood Pressure 112/78 11/30/24 10:02 Pulse Oximetry 93 11/30/24 10:02 Oxygen Delivery Method Nasal Cannula 11/30/24 10:02 Oxygen Flow Rate 4 11/30/24 10:02 Medications Administered Medications: Generic Name Dose Route Start Last Admin Trade Name Freq PRN Reason Stop Dose Admin Ceftriaxone Sodium 1 gm/ 100 mls @ 200 mls/hr 11/30/24 10:00 11/30/24 10:09 Sodium Chloride IVPB 200 mls/hr Q24H COLTON Administration Discontinued Medications Generic Name Dose Route Start Last Admin Trade Name Freq PRN Reason Stop Dose Admin Albuterol/Ipratropium 1 neb 11/30/24 08:37 11/30/24 08:44 Iprat-Albut 0.5-2.5 Mg/3 Ml Neb IH 11/30/24 08:38 1 neb ONCE ONE Administration Methylprednisolone Sodium Succinate 40 mg 11/30/24 09:55 11/30/24 10:06 Methylprednisolone Sod Succ 40 Mg/Ml IVP 11/30/24 09:56 40 mg ONCE ONE Administration Medical Decision Making MDM Narrative Medical decision making narrative: Patient presents with shortness of breath hypoxia. Chest x-ray is unremarkable. Labs are unrevealing with negative viral serology normal lactate. Her procalcitonin is normal white blood cell count is normal. She did receive supplemental oxygen as well as a DuoNeb. We did start her on Rocephin Zithromax and Solu-Medrol. Patient will be admitted for COPD exacerbation. Care transferred to hospitalist. Lab Data Labs: Lab Results 11/30/24 Range/Units 08:50 WBC 6.97 (4.50-11.00) K/uL RBC 4.24 (4.00-5.20) m/uL Hgb 13.4 (12.0-16.0) gm/dL Hct 39.7 (33.0-51.0) % MCV 94 (80-100) fL MCH 32 (26-34) pg MCHC 34 (32-36) gm/dL RDW Coeff of Mo 12.8 (11.5-15.5) % Plt Count 192 (140-440) K/uL Neut % (Auto) 70.6 (42.0-72.0) % Lymph % (Auto) 14.6 L (20-44) % Hitchcock % (Auto) 7.9 (0.0-11.0) % Eos % (Auto) 6.3 (0.0-7.0) % Baso % (Auto) 0.3 (0.0-3.0) % Neut # (Auto) 4.92 (1.7-7.0) K/uL Lymph # (Auto) 1.00 (0.90-2.90) K/uL Hitchcock # (Auto) 0.60 (0.00-0.90) K/UL Eos # (Auto) 0.44 (0.00-0.50) K/uL Baso # (Auto) 0.02 (0.00-0.30) K/uL Abs Immat Gran (auto) 0.02 (0.00-0.30) K/uL Imm/Tot Granulo (auto) 0.3 % D-Dimer Quant (PE/DVT) 0.44 (0.00-0.50) ug/ml Sodium 136 (135-149) mmol/L Potassium 3.8 (3.6-5.1) mmol/L Chloride 103 (96-114) mmol/L Carbon Dioxide 27 (20-32) mmol/L Anion Gap 6 L (7-15) mEq/L BUN 8 (7-30) mg/dL Creatinine 0.6 (0.5-1.5) mg/dL Estimated Creat Clear 49.80 Estimated GFR 99 ml/min Glucose 143 H (60-115) mg/dL Lactate 1.5 (0.5-1.9) mmol/L Calcium 9.1 (8.4-10.6) mg/dL Total Bilirubin 0.8 (0.1-1.5) mg/dL AST 33 (12-35) U/L ALT 28 (4-35) U/L Alkaline Phosphatase 79 (40-150) U/L Troponin I < 0.01 (0.01-0.04) ng/mL Total Protein 7.2 (6.0-8.3) g/dL Albumin 4.1 (3.3-5.0) g/dL Procalcitonin 0.07 (<0.50) ng/mL SARS-CoV-2 (PCR) Negative SARS-CoV-2 (Negative) Influenza Type A (PCR) Negative PCR FLU A (Negative) Influenza Type B (PCR) Negative PCR FLU B (Negative) RSV (PCR) Negative PCR RSV (Negative) Discharge Plan Discharge Clinical Impression: Acute exacerbation of chronic obstructive pulmonary disease Patient Disposition: Admitted As Observation Condition: Stable Activity Level: No Restrictions Discharge Diet: Regular
[2024-11-30] MEDS: IPRAT-ALBUT 0.5-2.5 MG/3 ML NEB 1 NEB IH ×4 (08:44→21:44)
[2024-11-30 09:04] LABS: Lactate* 1.5 mmol/L (0.5-1.9)
[2024-11-30 09:05] LABS: Hematocrit* 39.7 % (33.0-51.0); Hemoglobin* 13.4 gm/dL (12.0-16.0); Immature Granulocytes Abs Auto 0.02 K/uL (0.00-0.30); Immature Granulocytes Pct Auto 0.3 %; Mean Corpuscular HGB Conc 34 gm/dL (32-36); Mean Corpuscular Hemoglobin 32 pg (26-34); Mean Corpuscular Volume 94 fL (80-100); RDW Coefficient of Variation % 12.8 % (11.5-15.5); Red Blood Count* 4.24 m/uL (4.00-5.20); White Blood Count* 6.97 K/uL (4.50-11.00)
[2024-11-30 09:08] LABS: Lymphocytes Absolute Auto 1.00 K/uL (0.90-2.90); Slide Review Reflex No
[2024-11-30 09:19] LABS: Albumin* 4.1 g/dL (3.3-5.0); Chloride* 103 mmol/L (96-114); Potassium* 3.8 mmol/L (3.6-5.1); Sodium* 136 mmol/L (135-149)
[2024-11-30 09:21] LABS: Alanine Aminotransferase* 28 U/L (4-35); Anion Gap 6 mEq/L (7-15); Aspartate Amino Transferase* 33 U/L (12-35); Blood Urea Nitrogen* 8 mg/dL (7-30); Carbon Dioxide* 27 mmol/L (20-32); Creatinine* 0.6 mg/dL (0.5-1.5); Est. Creatinine Clearance* 49.80; Estimated Glomerular Filt Rate 99 ml/min
[2024-11-30 09:22] LABS: Alkaline Phosphatase* 79 U/L (40-150); Bilirubin Total* 0.8 mg/dL (0.1-1.5); Calcium* 9.1 mg/dL (8.4-10.6); Glucose* 143 mg/dL (60-115); Total Protein* 7.2 g/dL (6.0-8.3)
[2024-11-30 09:37] LABS: D Dimer Quantitative* 0.44 ug/ml (0.00-0.50)
[2024-11-30 09:39] LABS: Procalcitonin* 0.07 ng/mL (<0.50)
[2024-11-30 09:42] LABS: PCR FLU A Negative PCR FLU A (Negative); PCR FLU B Negative PCR FLU B (Negative); PCR RSV Negative PCR RSV (Negative); SARS PCR* Negative SARS-CoV-2 (Negative)
[2024-11-30] MEDS: cefTRIAXone 1 GM in 0.9 % SODIUM CHLORIDE Mini-bag 100 ML IVPB (10:09)
[2024-11-30] MEDS: AZITHROMYCIN 500 MG in 0.9 % SODIUM CHLORIDE 250 ml 250 ML 255 MG IVPB (10:47)
[2024-11-30] MEDS: BUDESONIDE 0.5 MG/2ML NEB NEB ×2 (12:19→21:42)
[2024-11-30] MEDS: DOXYCYCLINE HYCLATE 100 MG PO ×2 (13:38→21:41)
--- NOTE | 2024-11-30 17:22 | PM.IMHP1 ---
Assessment and Plan Assessment and plan (1) Acute exacerbation of chronic obstructive pulmonary disease: Problem comment: 11/30/2024: IV methylprednisolone and then oral prednisone for the next 5 days for burst therapy. Scheduled ipratropium bromide with albuterol nebulizer q.4 hours. P.r.n. albuterol nebulizer. Scheduled budesonide nebulizer. IV ceftriaxone and oral doxycycline. Status: Acute (2) Acute hypoxic respiratory failure: Problem comment: 11/30/2024: Resting room air oxygen saturations in the low 80s and post ambulation down to 70. Stabilizes with oxygen supplementation via nasal cannula. Continue the same for now and treat underlying conditions. Respiratory therapy consultation. Status: Acute (3) Asthma: Problem comment: PRN rescue-haler only 12/22/2021 Status: Acute (4) Tobacco abuse: Problem comment: - 1 PPD for over 40 years - 11/30/2024: Patient tells me she quit 27 days ago. Status: Acute (5) Obesity, morbid, BMI 40.0-49.9: Problem comment: BMI 45 on 12/11/2021. High risk for obstructive sleep apnea. Status: Acute Plan 1. Reviewed impression, plans, recommendations with patient and her joshua Smith 2. Answered their questions 3. There are agreeable with above stated plans and recommendations Total Time Spent Total Time Spent: 60 minutes Hospitalist- H&P: HPI History of Present Illness Date Seen: 11/30/24 Chief complaint: difficulty breathing Narrative: Nani Farley is a 64 year old woman with 24 hour history of progressive nasal congestion, cough, dyspnea, wheezing. Was treated in the inpatient setting of the hospital for COPD exacerbation roughly 3 weeks ago. Tells me she quit smoking at that time and has not started smoking since. Denies fevers, rigors, diaphoresis. Cough nonproductive at this time. Clear nasal discharge. Review of Systems Status of ROS: Reports: 6 or more systems reviewed and unremarkable except as noted in History and below Medical Decision Making Medical Decision Making Code Status: Full resuscitation Has patient completed a Health Care Directive: No During This Stay, Who Would You Like To Make Decisions For You In The Event You Are Unable To Make Them For Yourself?: Her Luis lewis [facility] Medical History Chronic obstructive pulmonary disease ?J44.9 - Chronic obstructive pulmonary disease, unspecified (ICD-10) Lung nodule (09/20/23) ?R91.1 - Solitary pulmonary nodule (ICD-10) Obesity, morbid, BMI 40.0-49.9 ?E66.01 - Morbid (severe) obesity due to excess calories (ICD-10) Tobacco abuse ?Z72.0 - Tobacco use (ICD-10) Hyperlipidemia ?E78.5 - Hyperlipidemia, unspecified (ICD-10) Hypertension affecting ?O16.9 - Unspecified maternal hypertension, unspecified trimester (ICD-10) Asthma ?J45.909 - Unspecified asthma, uncomplicated (ICD-10) Hypertension ?I10 - Essential (primary) hypertension (ICD-10) Osteoarthritis of knees, bilateral ?M17.0 - Bilateral primary osteoarthritis of knee (ICD-10) Cervical cancer (~1992) ?C53.9 - Malignant neoplasm of cervix uteri, unspecified (ICD-10) Angioedema ?T78.3XXA - Angioneurotic edema, initial encounter (ICD-10) Surgical History 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 History of ETOH overuse, currently drinking very little. Quit smoking during recent illness (10/28/24) Desires full resuscitation and intubation if needed, but would not want to be kept alive artificially. What is your current living situation?: I presently have a place to live Problems where you live: no known problems Problems where you live details: n/a In the past 12 months, utilities in danger of being shut off: no In past 12 months, lack of transportation kept you from medical appts, meetings, work, or getting things needed for daily living: no In the past 12 mos, have been you worried that your food would run out before you had money to buy more?: never true In the past 12 mos, the food you bought just didn't last and you didn't have money to buy more?: never true Highest level of school completed/degree received: high school graduate Smoking Status: Former smoker What tobacco products do you use: cigarettes Smoking packs per day: 1 Smoking cigarettes per day: 20.0 Years smoked: 40 Smoking pack-years: 40.00 Smoking quit date/years: <= 15 years ago Do you use any of these nicotine containing products: None Nicotine containing products detail: pt reports quitting smoking 27 days ago Second hand tobacco smoke exposure: No How often do you have a drink containing alcohol: 2-3 times a week Alcohol type: beer Alcohol type details: bloody placido How many standard drinks containing alcohol do you have on a typical day: 1 or 2 How often do you have six or more drinks on one occasion: Less than monthly AUDIT-C Alcohol total score: 4 Non-prescribed substance use: denies use Caffeine: Yes (coffee, 2 cups/am) How often does anyone, including family, friends and others, physically hurt you: never How often does anyone, including family, friends and others, insult or talk down to you: never How often does anyone, including family, friends and others, threaten you with harm: never How often does anyone, including family, friends and others, scream or curse at you: never service: No Meds Home Medications and Allergies Home Medications ?Medication ?Instructions ?Recorded ?Confirmed ?Type amlodipine 10 mg tablet 5 mg PO QPM 11/03/21 11/30/24 History hydrochlorothiazide 25 mg tablet 25 mg PO QPM 11/03/21 11/30/24 History omeprazole 20 mg capsule,delayed 20 mg PO QPM 11/03/21 11/30/24 History release simvastatin 20 mg tablet 20 mg PO QPM 11/03/21 11/30/24 History losartan 50 mg tablet 50 mg PO DAILY 11/04/21 11/30/24 History budesonide-formoterol HFA 80 2 puff inhalation BID #10.2 grams 11/01/24 11/30/24 Rx mcg-4.5 mcg/actuation aerosol inhaler albuterol sulfate 90 mcg/actuation 2 puff inhalation Q6H PRN 11/07/24 11/30/24 Rx aerosol inhaler shortness of breath or wheezing #8.5 grams ipratropium 0.5 mg-albuterol 3 mg 3 ml inhalation QID PRN shortness 11/30/24 11/30/24 History (2.5 mg base)/3 mL nebulization of breath soln Allergies Allergy/AdvReac Type Severity Reaction Status Date / Time lisinopril Allergy Intermediate Lip Verified 11/30/24 08:29 swelling metoprolol AdvReac Verified 11/30/24 08:29 Exam Narrative: Exam Narrative: I assess the patient when she arrives on the hospital floor. Appears anxious with tachypnea and audible wheezing. On oxygen supplementation maintaining saturation values low to mid 90%. Cooperative and friendly. Articulate. External auditory canals are clear. Clear nasal discharge. Dentition fair repair. Neck is supple. Midline trachea. No JVD or hepatojugular reflux. Does have a full neck. Barrel shaped chest. Using accessory muscles of respiration. Diffuse wheezing, inspiratory and expiratory. Distant heart tones, with regular rhythm. Obese abdomen with active bowel sounds, soft, nontender. Extremities without edema. No focal motor neurologic deficits. Const: Vital Signs, click to edit/add: Vital Signs - 24 hr 11/30/24 08:25 11/30/24 08:38 11/30/24 08:39 Temperature 97.4 F L Pulse Rate 114 H 107 H Pulse Rate [Pulse Oximeter] Pulse Rate [Right Pulse Oximeter] 112 H Respiratory Rate 32 H Blood Pressure 156/90 H Blood Pressure [Le ft Arm] Blood Pressure [Ri ght Forearm] 171/98 H Pulse Oximetry 87 L 89 89 Oxygen Delivery Me thod Room Air Room Air Room Air Oxygen Flow Rate 11/30/24 08:45 11/30/24 08:47 11/30/24 08:51 Temperature Pulse Rate 106 H 104 H Pulse Rate [Pulse Oximeter] Pulse Rate [Right Pulse Oximeter] Respiratory Rate 28 H Blood Pressure 142/100 H Blood Pressure [Le ft Arm] Blood Pressure [Ri ght Forearm] Pulse Oximetry 92 95 93 Oxygen Delivery Me thod Nasal Cannula Nasal Cannula Nasal Cannula Oxygen Flow Rate 3 3 3 11/30/24 08:58 11/30/24 09:00 11/30/24 09:02 Temperature Pulse Rate 105 H 99 83 Pulse Rate [Pulse Oximeter] Pulse Rate [Right Pulse Oximeter] Respiratory Rate Blood Pressure 125/83 137/77 Blood Pressure [Le ft Arm] Blood Pressure [Ri ght Forearm] Pulse Oximetry 91 91 91 Oxygen Delivery Me thod Nasal Cannula Oxygen Flow Rate 3 11/30/24 09:03 11/30/24 09:18 11/30/24 09:30 Temperature Pulse Rate 96 98 95 Pulse Rate [Pulse Oximeter] Pulse Rate [Right Pulse Oximeter] Respiratory Rate Blood Pressure Blood Pressure [Le ft Arm] Blood Pressure [Ri ght Forearm] Pulse Oximetry 90 90 91 Oxygen Delivery Me thod Nasal Cannula Oxygen Flow Rate 3 11/30/24 09:32 11/30/24 09:45 11/30/24 09:47 Temperature Pulse Rate 99 91 92 Pulse Rate [Pulse Oximeter] Pulse Rate [Right Pulse Oximeter] Respiratory Rate 24 Blood Pressure 125/74 138/71 Blood Pressure [Le ft Arm] Blood Pressure [Ri ght Forearm] Pulse Oximetry 92 92 92 Oxygen Delivery Me thod Nasal Cannula Nasal Cannula Nasal Cannula Oxygen Flow Rate 4 4 4 11/30/24 10:00 11/30/24 10:02 11/30/24 10:03 Temperature Pulse Rate 97 96 91 Pulse Rate [Pulse Oximeter] Pulse Rate [Right Pulse Oximeter] Respiratory Rate 22 Blood Pressure 112/78 Blood Pressure [Le ft Arm] Blood Pressure [Ri ght Forearm] Pulse Oximetry 94 93 94 Oxygen Delivery Me thod Nasal Cannula Nasal Cannula Oxygen Flow Rate 4 4 11/30/24 10:15 11/30/24 10:16 11/30/24 10:30 Temperature Pulse Rate 91 91 90 Pulse Rate [Pulse Oximeter] Pulse Rate [Right Pulse Oximeter] Respiratory Rate Blood Pressure 113/95 H Blood Pressure [Le ft Arm] Blood Pressure [Ri ght Forearm] Pulse Oximetry 91 92 92 Oxygen Delivery Me thod Oxygen Flow Rate 11/30/24 10:33 11/30/24 10:45 11/30/24 11:00 Temperature Pulse Rate 99 117 H 100 Pulse Rate [Pulse Oximeter] Pulse Rate [Right Pulse Oximeter] Respiratory Rate Blood Pressure 148/97 H Blood Pressure [Le ft Arm] Blood Pressure [Ri ght Forearm] Pulse Oximetry 91 89 92 Oxygen Delivery Me thod Oxygen Flow Rate 11/30/24 11:15 11/30/24 11:30 11/30/24 14:38 Temperature Pulse Rate 97 93 Pulse Rate [Pulse Oximeter] 103 H Pulse Rate [Right Pulse Oximeter] Respiratory Rate 28 H Blood Pressure Blood Pressure [Le ft Arm] 141/99 H Blood Pressure [Ri ght Forearm] Pulse Oximetry 92 93 91 Oxygen Delivery Me thod Nasal Cannula Nasal Cannula Oxygen Flow Rate 4 4 11/30/24 14:38 11/30/24 15:00 11/30/24 15:00 Temperature 97.5 F L Pulse Rate Pulse Rate [Pulse Oximeter] 87 Pulse Rate [Right Pulse Oximeter] Respiratory Rate 28 H 20 20 Blood Pressure Blood Pressure [Le ft Arm] 149/92 H Blood Pressure [Ri ght Forearm] Pulse Oximetry 91 92 92 Oxygen Delivery Me thod Nasal Cannula Nasal Cannula Nasal Cannula Oxygen Flow Rate 4 4 4 Hospitalist - H&P: Result Labs Labs: Short CBC 11/30/24 Range/Units 08:50 WBC 6.97 (4.50-11.00) K/uL Hgb 13.4 (12.0-16.0) gm/dL Hct 39.7 (33.0-51.0) % Plt Count 192 (140-440) K/uL BMP 11/30/24 08:50 Sodium 136 Potassium 3.8 Chloride 103 Carbon Dioxide 27 BUN 8 Creatinine 0.6 Glucose 143 H Calcium 9.1 Cardiac Enzymes 11/30/24 Range/Units 08:50 Troponin I < 0.01 (0.01-0.04) ng/mL Liver Function 11/30/24 Range/Units 08:50 Total Bilirubin 0.8 (0.1-1.5) mg/dL AST 33 (12-35) U/L ALT 28 (4-35) U/L Alkaline Phosphatase 79 (40-150) U/L Albumin 4.1 (3.3-5.0) g/dL ECG Attestation: I personally reviewed and interpreted this ECG as follows: ECG interpretation date: 11/30/24 Interpretation: Normal sinus rhythm, heart rate 95. No evidence of ischemia or infarct pattern. Imaging Chest x-ray: Attestation: I have reviewed the pertinent imaging results. Radiologist's impression: No apparent infiltrates, pneumothorax, effusions, fractures.
--- NOTE | 2024-11-30 17:41 | RESP.RT ---
Patient is currently SATing 91% on 1L NC. Aerobika instruction given and patient is able to use independently while awake. Patient has post nasal drainage that is causing inflammation and mucus build up in the upper airway. Upper airway wheezing is persistent. Steriods maybe more effective than albuterol. Target SATs of 88-92% and keep SATs below 92 as patient is a former smoker and CO2 retainer.
[2024-11-30] MEDS: AMLODIPINE 10 MG TABLET 5 MG PO (17:46)
[2024-11-30] MEDS: SIMVASTATIN 20 MG TABLET PO (17:46)
[2024-11-30] MEDS: OMEPRAZOLE 20 MG CAPSULE DR PO (17:47)
--- NOTE | 2024-11-30 19:28 | PC.NURSE ---
End of Shift [id number] - Pt arrived from ED at approximately 1140. On arrival pt was noted to be tachypneic and SOB at rest and reported to RN that she was starting to feel anxious, like it's closing in. RN alerted MD and orders were received. Medication given per MAR to improve pt SOB and reported feelings of anxiety. Pt reported improved comfort. Pt denied pain, n/v, dizziness. Up independently in room and using bedside commode PRN. Observed to sleep during shift, appears to be resting comfortably in bed at end of shift with call light within reach.
[2024-12-01 03:00] VITALS: BP 130/85; PULSE 77; RESP 20; TEMP 36.7; O2SAT 91
[2024-12-01] MEDS: IPRAT-ALBUT 0.5-2.5 MG/3 ML NEB 1 NEB IH ×4 (04:45→16:55)
[2024-12-01 06:42] LABS: HCO3 VBG 28 mmol/L (21-28); Lactate* 1.1 mmol/L (0.5-1.9); PCO2 VBG 39 mmHG (40-50); PO2 VBG 61.0 mmHG (25-47); pH VBG 7.462 (7.32-7.43)
[2024-12-01 06:48] LABS: Hematocrit* 35.8 % (33.0-51.0); Hemoglobin* 12.0 gm/dL (12.0-16.0); Mean Corpuscular HGB Conc 34 gm/dL (32-36); Mean Corpuscular Hemoglobin 31 pg (26-34); Mean Corpuscular Volume 94 fL (80-100); Red Blood Count* 3.83 m/uL (4.00-5.20); White Blood Count* 8.42 K/uL (4.50-11.00)
[2024-12-01 06:49] LABS: Slide Review Reflex No
[2024-12-01 07:00] VITALS: BP 146/81; PULSE 71; RESP 20; TEMP 36.2; O2SAT 91
[2024-12-01 07:02] LABS: Chloride* 101 mmol/L (96-114); Potassium* 3.7 mmol/L (3.6-5.1); Sodium* 134 mmol/L (135-149)
[2024-12-01 07:05] LABS: Blood Urea Nitrogen* 9 mg/dL (7-30); Creatinine* 0.5 mg/dL (0.5-1.5); Est. Creatinine Clearance* 49.80; Estimated Glomerular Filt Rate 103 ml/min
[2024-12-01 07:06] LABS: Anion Gap 5 mEq/L (7-15); Calcium* 9.1 mg/dL (8.4-10.6); Carbon Dioxide* 28 mmol/L (20-32); Glucose* 134 mg/dL (60-115)
[2024-12-01 07:21] LABS: Procalcitonin* 0.05 ng/mL (<0.50)
[2024-12-01 07:35] LABS: NT Pro B Type NatriureticPept* 308 pg/mL (See Note)
[2024-12-01] MEDS: LOSARTAN POTASSIUM 50 MG TABLET PO (08:22)
[2024-12-01] MEDS: DOXYCYCLINE HYCLATE 100 MG PO ×2 (08:22→21:13)
[2024-12-01] MEDS: FEXOFENADINE 180 MG TABLET PO (09:00)
[2024-12-01] MEDS: cefTRIAXone 1 GM in 0.9 % SODIUM CHLORIDE Mini-bag 100 ML IVPB (09:01)
[2024-12-01] MEDS: SODIUM CHLORIDE 0.9 % (FLUSH) 10 ML SYRINGE 5 ML IVF (09:01)
[2024-12-01] MEDS: BUDESONIDE 0.5 MG/2ML NEB NEB ×2 (09:01→21:13)
[2024-12-01 11:23] VITALS: BP 111/69; PULSE 71; RESP 22; TEMP 36.3; O2SAT 90
[2024-12-01 15:00] VITALS: BP 112/69; PULSE 79; RESP 22; TEMP 36.5; O2SAT 92; O2SAT 93
--- NOTE | 2024-12-01 16:21 | PM.IMPN1 ---
Assessment and Plan Assessment and plan (1) Acute exacerbation of chronic obstructive pulmonary disease: Problem comment: 11/30/2024: IV methylprednisolone and then oral prednisone for the next 5 days for burst therapy. Scheduled ipratropium bromide with albuterol nebulizer q.4 hours. P.r.n. albuterol nebulizer. Scheduled budesonide nebulizer. IV ceftriaxone and oral doxycycline. 12/01/2024: Tolerating transition and medication regimen. I added fexofenadine and Flonase nasal spray to her regimen today. Status: Acute (2) Acute hypoxic respiratory failure: Problem comment: 11/30/2024: Resting room air oxygen saturations in the low 80s and post ambulation down to 70. Stabilizes with oxygen supplementation via nasal cannula. Continue the same for now and treat underlying conditions. Respiratory therapy consultation. 12/01/2024: Less oxygen support needed today than yesterday. Utilizing Aerobika device with good results. Status: Acute (3) Asthma: Problem comment: PRN rescue-haler only 12/22/2021 12/01/2024: I added montelukast for her asthma regimen Status: Acute (4) Tobacco abuse: Problem comment: - 1 PPD for over 40 years - 11/30/2024: Patient tells me she quit 27 days ago. Status: Acute (5) Obesity, morbid, BMI 40.0-49.9: Problem comment: BMI 45 on 12/11/2021. High risk for obstructive sleep apnea. Status: Acute Plan 1. Reviewed my impression, plans, recommendations with patient 2. Answered her questions 3. Patient is agreeable with above stated plans and recommendations Total Time Spent Total Time Spent: 30 minutes Subjective Date Seen: 12/01/24 Interval history: Admission history of present illness: ?64 year old woman with 24 hour history of progressive nasal congestion, cough, dyspnea, wheezing. Was treated in the inpatient setting of the hospital for COPD exacerbation roughly 3 weeks ago. Tells me she quit smoking at that time and has not started smoking since. Denies fevers, rigors, diaphoresis. Cough nonproductive at this time. Clear nasal discharge.? 12/01/2024, hospital day 2. Slowly improving. Wheezing much improved. This you much improved. Requiring less oxygen supplementation to maintain oxygen saturations at rest greater than 88%. Tolerating increased activities already today. Exam Narrative: Exam Narrative: Examined the patient in her hospital room. Appears much less uncomfortable today than yesterday. Still respiratory rates of 20-24 at rest. Continues to have rhonchi and scattered wheezing inspiratory and expiratory. Heart tones with regular rhythm. Abdomen obese with active bowel sounds, soft, nontender. Extremities without edema. Independent with transfer, station, gait. Const: Vital Signs, click to edit/add: Vital Signs - 24 hr 11/30/24 19:00 11/30/24 23:00 11/30/24 23:00 Temperature 98.1 F Pulse Rate [Pulse Oximeter] 90 77 Respiratory Rate 20 20 20 Blood Pressure [Le ft Arm] 141/70 H Pulse Oximetry 90 92 Oxygen Delivery Me thod Room Air Room Air Oxygen Flow Rate 4 11/30/24 23:00 12/01/24 03:00 12/01/24 07:00 Temperature 98.3 F 98.1 F Pulse Rate [Pulse Oximeter] 77 77 Respiratory Rate 20 20 20 Blood Pressure [Le ft Arm] 130/90 H 130/85 Pulse Oximetry 90 91 91 Oxygen Delivery Me thod Room Air Room Air Nasal Cannula Oxygen Flow Rate 4 4 1.5 12/01/24 07:00 12/01/24 11:23 Temperature 97.2 F L 97.4 F L Pulse Rate [Pulse Oximeter] 71 71 Respiratory Rate 20 22 Blood Pressure [Le ft Arm] 146/81 H 111/69 Pulse Oximetry 91 90 Oxygen Delivery Me thod Nasal Cannula Room Air Oxygen Flow Rate 1.5 Labs Labs: Laboratory Results - last 24 hr 12/01/24 06:35 WBC 8.42 RBC 3.83 L Hgb 12.0 Hct 35.8 MCV 94 MCH 31 MCHC 34 Plt Count 215 VBG pH 7.462 H VBG pCO2 39 L VBG pO2 61.0 H VBG HCO3 28 Sodium 134 L Potassium 3.7 Chloride 101 Carbon Dioxide 28 Anion Gap 5 L BUN 9 Creatinine 0.5 Estimated Creat Clear 49.80 Estimated GFR 103 Glucose 134 H Lactate 1.1 Calcium 9.1 Phosphorus 3.6 Magnesium 2.2 Troponin I 0.02 C-Reactive Protein 3.6 H NT-Pro-B Natriuret Pep 308 H Procalcitonin 0.05 TSH 0.263 L
[2024-12-01] MEDS: OMEPRAZOLE 20 MG CAPSULE DR PO (18:03)
[2024-12-01] MEDS: SIMVASTATIN 20 MG TABLET PO (18:03)
[2024-12-01] MEDS: AMLODIPINE 10 MG TABLET 5 MG PO (18:03)
[2024-12-01 19:00] VITALS: BP 127/68; PULSE 66; RESP 20; TEMP 36.6; O2SAT 95
--- NOTE | 2024-12-01 19:39 | PC.NURSE ---
End of shift [id number] -Pt alert, oriented, cooperative. Tolerating RA during majority of shift and able to maintain O2 saturation above 88% per MD and RT order. Observed to ambulate in halls frequently. Reports feeling good and states she is eager to go home. Pt denies pain, n/v, dizziness. Appears to be resting comfortably at end of shift with call light within reach.
[2024-12-01] MEDS: MONTELUKAST 10 MG TABLET PO (21:13)
[2024-12-01 23:00] VITALS: BP 119/88; PULSE 71; RESP 20; TEMP 36.6; O2SAT 94
[2024-12-02 03:00] VITALS: BP 128/80; PULSE 80; RESP 20; TEMP 36.6; O2SAT 93
[2024-12-02] MEDS: IPRAT-ALBUT 0.5-2.5 MG/3 ML NEB 1 NEB IH (04:14)
[2024-12-02 06:23] LABS: Hematocrit* 34.8 % (33.0-51.0); Hemoglobin* 11.8 gm/dL (12.0-16.0); Mean Corpuscular HGB Conc 34 gm/dL (32-36); Mean Corpuscular Hemoglobin 32 pg (26-34); Mean Corpuscular Volume 94 fL (80-100); Red Blood Count* 3.70 m/uL (4.00-5.20); White Blood Count* 10.67 K/uL (4.50-11.00)
[2024-12-02 06:33] LABS: Slide Review Reflex No
[2024-12-02 06:35] LABS: Chloride* 102 mmol/L (96-114)
[2024-12-02 06:36] LABS: Potassium* 3.5 mmol/L (3.6-5.1); Sodium* 136 mmol/L (135-149)
[2024-12-02 06:38] LABS: Blood Urea Nitrogen* 23 mg/dL (7-30); Creatinine* 0.7 mg/dL (0.5-1.5); Est. Creatinine Clearance* 49.80; Estimated Glomerular Filt Rate 95 ml/min
[2024-12-02 06:39] LABS: Anion Gap 7 mEq/L (7-15); Calcium* 9.3 mg/dL (8.4-10.6); Carbon Dioxide* 27 mmol/L (20-32); Glucose* 94 mg/dL (60-115)
[2024-12-02 07:00] VITALS: BP 124/97; PULSE 82; RESP 20; TEMP 36.1; O2SAT 93
[2024-12-02 08:30] VITALS: RESP 20; O2SAT 93
[2024-12-02] MEDS: DOXYCYCLINE HYCLATE 100 MG PO (08:31)
[2024-12-02] MEDS: cefTRIAXone 1 GM in 0.9 % SODIUM CHLORIDE Mini-bag 100 ML IVPB (08:32)
[2024-12-02] MEDS: FEXOFENADINE 180 MG TABLET PO (08:32)
[2024-12-02] MEDS: LOSARTAN POTASSIUM 50 MG TABLET PO (08:32)
[2024-12-02] MEDS: SODIUM CHLORIDE 0.9 % (FLUSH) 10 ML SYRINGE 5 ML IVF (08:33)
--- NOTE | 2024-12-02 11:08 | PC.NURSE ---
The patient discharged home with her S/O this morning, with all of her belongings. All discharge education, medications, and instructions for follow up were covered with both of them. The patient was wheeled off the unit. Koki SORTON
--- NOTE | 2024-12-02 17:16 | P.DS_ITS ---
DS: Providers Provider Date Seen: 12/02/24 Date of admission: 11/30/24 12:12 Primary care physician: Nancy Nielsen MD Admitting Clinician: Warren Chaney MD Consults: 11/30/24 12:12 Consult to Nutrition [CONS] Routine Comment: Reason for consult:: Miscellaneous Comment: COPD, obesity Consult to Respiratory Therapy [CONS] Routine Comment: Reason(s) for RT Consult:: Consult Attending Physician on discharge: Warren Chaney MD Date of Discharge: 12/02/24 DS: Diagnosis Discharge Diagnosis (1) Acute hypoxic respiratory failure: Status: Acute Problem details: 11/30/2024: Resting room air oxygen saturations in the low 80s and post ambulation down to 70. Stabilizes with oxygen supplementation via nasal cannula. Continue the same for now and treat underlying conditions. Respiratory therapy consultation. 12/01/2024: Less oxygen support needed today than yesterday. Utilizing Aerobika device with good results. (2) Acute exacerbation of chronic obstructive pulmonary disease: Status: Acute Problem details: 11/30/2024: IV methylprednisolone and then oral prednisone for the next 5 days for burst therapy. Scheduled ipratropium bromide with albuterol nebulizer q.4 hours. P.r.n. albuterol nebulizer. Scheduled budesonide nebulizer. IV ceftriaxone and oral doxycycline. 12/01/2024: Tolerating transition and medication regimen. I added fexofenadine and Flonase nasal spray to her regimen today. (3) Asthma: Status: Acute Problem details: PRN rescue-haler only 12/22/2021 12/01/2024: I added montelukast for her asthma regimen (4) Obesity, morbid, BMI 40.0-49.9: Status: Acute Problem details: BMI 45 on 12/11/2021. High risk for obstructive sleep apnea. DS: Summary Hospital Course Hospital Course: Admission history of present illness: ?64 year old woman with 24 hour history of progressive nasal congestion, cough, dyspnea, wheezing. Was treated in the inpatient setting of the hospital for COPD exacerbation roughly 3 weeks ago. Tells me she quit smoking at that time and has not started smoking since. Denies fevers, rigors, diaphoresis. Cough nonproductive at this time. Clear nasal discharge.? 12/01/2024, hospital day 2. Slowly improving. Wheezing much improved. This you much improved. Requiring less oxygen supplementation to maintain oxygen saturations at rest greater than 88%. Tolerating increased activities already today. 12/02/2024, hospital day 3. No longer requiring oxygen supplementation. She is getting close to baseline in terms of her level of dyspnea. She tells me she has totally ready to be discharged back to her home. She is anxious to watch the [employer] game later today. Status at Discharge Functional status at discharge: independent ambulation Overall status at discharge: patient is progressing back to baseline Time Spent with Patient Time attestation: Total time spent providing and/or coordinating discharge services: Time spent: Greater than 30 minutes Exam Narrative: Exam Narrative: Examined the patient in her hospital room. Appears much less uncomfortable today than yesterday. Still respiratory rates of 20-24 at rest. Less rhonchi and scattered wheezing, inspiratory and expiratory. Heart tones with regular rhythm. Abdomen obese with active bowel sounds, soft, nontender. Extremities without edema. Independent with transfer, station, gait. Const: Vital Signs, click to edit/add: Vital Signs - 24 hr 12/01/24 19:00 12/01/24 23:00 12/01/24 23:00 Temperature 98 F Pulse Rate [Pulse Oximeter] 66 71 Respiratory Rate 20 20 20 Blood Pressure [Le ft Arm] 127/68 Pulse Oximetry 95 94 Oxygen Delivery Me thod Room Air Room Air 12/01/24 23:00 12/02/24 03:00 12/02/24 07:00 Temperature 98 F 98 F 97.0 F L Pulse Rate [Pulse Oximeter] 71 80 82 Respiratory Rate 20 20 20 Blood Pressure [Le ft Arm] 119/88 128/80 124/97 H Pulse Oximetry 94 93 93 Oxygen Delivery Me thod Room Air Room Air Room Air 12/02/24 08:30 12/02/24 08:30 Temperature Pulse Rate [Pulse Oximeter] Respiratory Rate 20 Blood Pressure [Le ft Arm] Pulse Oximetry 93 Oxygen Delivery Me thod Room Air DS: Data Data Completed and Pending Completed studies during hospitalization: Procedures Introduction of Other Gas into Respiratory Tract, Via Natural or Artificial O pening (11/05/24) Labs on day of discharge: Labs from last 24 hours 12/02/24 05:58 WBC 10.67 RBC 3.70 L Hgb 11.8 L Hct 34.8 MCV 94 MCH 32 MCHC 34 Plt Count 226 Sodium 136 Potassium 3.5 L Chloride 102 Carbon Dioxide 27 Anion Gap 7 BUN 23 Creatinine 0.7 Estimated Creat Clear 49.80 Estimated GFR 95 Glucose 94 Calcium 9.3 Preliminary micro results at discharge 11/30/24 09:17 Blood Culture - Preliminary Blood NO GROWTH AFTER 48 HOURS 11/30/24 09:11 Blood Culture - Preliminary Blood NO GROWTH AFTER 48 HOURS Imaging Chest x-ray: Attestation: I have reviewed the pertinent imaging results. Radiologist's impression: FINDINGS/IMPRESSION: Stable linear airspace opacity in the right mid zone, likely atelectasis/scarring. No new pulmonary opacity or consolidation. No effusion or pneumothorax. Cardiac size is within normal limit without pulmonary edema. Discharge Plan Discharge Disposition: Home, Self-Care Date of Admission: 11/30/24 12:12 Attending Provider on Discharge: Warren Chaney Primary Care Provider: Nancy Nielsen Condition: Stable Anticipated Discharge Date/Time: 12/02/24 10:00 Discharge Medications: New prednisone 20 mg Tablet 40 mg PO DAILYWM 3 Days Qty: 6 0RF fexofenadine 180 mg Tablet 180 mg PO DAILY 30 Days Qty: 30 0RF fluticasone propionate 50 mcg/actuation Cunningham,Suspension 1 spray intranasal DAILY 15 Days Qty: 16 1RF doxycycline hyclate 100 mg Tablet 100 mg PO BID 5 Days Qty: 10 0RF ipratropium-albuterol 0.5 mg-3 mg(2.5 mg base)/3 mL solution for nebulization 3 ml inhalation QID PRNQty: 180 0RF Continued hydrochlorothiazide 25 mg tablet 25 mg PO QPM omeprazole 20 mg capsule,delayed release(DR/EC) 20 mg PO QPM simvastatin 20 mg tablet 20 mg PO QPM amlodipine 10 mg tablet 5 mg PO QPM losartan 50 mg tablet 50 mg PO DAILY budesonide-formoterol 80-4.5 mcg/actuation HFA aerosol inhaler 2 puff inhalation BID Qty: 10.2 2RF albuterol sulfate 90 mcg/actuation HFA aerosol inhaler 2 puff inhalation Q6H PRN (Reason: shortness of breath or wheezing) Qty: 8.5 2RF Discontinued ipratropium-albuterol 0.5 mg-3 mg(2.5 mg base)/3 mL solution for nebulization 3 ml inhalation QID PRN (Reason: shortness of breath) Discharge Orders: Discharge Order (Routine); Ordered 12/02/24 Ordered By: Warren Chaney Patient Education: Doxycycline (By mouth), Prednisone (By mouth), Fexofenadine (By mouth), Ipratropium/Albuterol (By breathing), Fluticasone (Into the nose), COPD (Chronic Obstructive Pulmonary Disease) (DC), Chronic Lung Disease and Infection Prevention (DC), Pulmonary Rehabilitation (DC), Energy Conservation Techniques (DC), Dyspnea Scale and Exercise (DC), Nutrition Guidelines for People with COPD (DC) Additional Instructions: 1. Follow-up with Dr. Nielsen in 5-10 days, establish long-term treatment plan and goals, safety plan 2. Return to clinic or hospital sooner if needed Activity Level: No Restrictions Discharge Diet: Regular Follow Up Appointments: Nancy Nielsen MD [Primary Care Provider, [facility]] - 12/07/24 11:45 am Forms: [facility], [facility] Inst[facility]
== END 2024-12-02 09:30 | disposition home or self-care (01) | DRG 190 ==
LOC: ED 10:18 → MEDSURG 11:36
PROVIDERS: Admitting Provider Internal Medicine; Emergency Provider Internal Medicine; PCP Family Medicine; Visit Provider Internal Medicine
DX: J44.1 Chronic obstructive pulmonary disease with (acute) exacerbation (principal); J96.01 Acute respiratory failure with hypoxia; Z68.42 Body mass index [BMI] 45.0-49.9, adult; E66.01 Morbid (severe) obesity due to excess calories; J45.909 Unspecified asthma, uncomplicated; F17.210 Nicotine dependence, cigarettes, uncomplicated; E78.5 Hyperlipidemia, unspecified
CPT/HCPCS: 36415; 71045; 80048; 80053; 82803; 83605; 83735; 83880; 84100; 84145; 84443; 84484; 85025; 85027; 85379; 86140; 87040; 87631; 94640; 94664; 99284; 99285; A9270; J0456; J0696; J2060; J2919; J7050; J7512